=== PATIENT | female | born 1985 | race Caucasian/White ===

== ENCOUNTER 2023-05-28 13:47 | Outpatient (OUT) | payer OTHER, SELFPAY ==
--- NOTE | 2023-05-28 | US_ITS ---
The [address] [address] Patient Name: SANTOS JONES MRN: [id number] date: 1985 Sex: F Assigned Patient Location: US Current Patient Location: Accession/Order Number: [id number] Exam Date: 05/28/2023 14:00 Report Date: 05/29/2023 08:40 At the request of: YOUNG MOYA Procedure: US pelvis EXAM: US pelvis HISTORY: . Pelvic pain in female R10.2 . COMPARISON: None. TECHNIQUE: Transabdominal scanning was performed FINDINGS: The uterus is absent. Right ovary measures 3.7 x 3.3 x 2.8 cm. Color-flow is noted. Within the right ovary there is a 2.3 x 1.9 x 1.8 cm avascular hypoechoic complicated cystic structure. Left ovary measures 2.3 x 1.5 x 1.7 cm. Color-flow is noted. No masses are noted. The bladder is grossly unremarkable. No fluid is noted in the cul-de-sac. US/US pelvis IMPRESSION: 1. Absent uterus. 2. Normal left ovary. 3. 2.3 x 1.8 cm complicated avascular cystic structure in the right ovary. Findings could be due to a hemorrhagic cyst, an inflammatory mass, or less likely neoplasm. Clinical correlation is suggested. You may was consider follow-up in 6-8 weeks. If this is a hemorrhagic cyst, this should show decrease in size and/or resolution. Electronically authenticated by: DEZ DHALIWAL Date: 05/29/2023 08:40
== END 2023-05-28 13:48 | disposition home or self-care (01) ==
LOC: US 13:48
PROVIDERS: Visit Provider Obstetrics & Gynecology
DX: R10.2 Pelvic and perineal pain (principal); N83.9 Noninflammatory disorder of ovary, fallopian tube and broad ligament, unspecified
CPT/HCPCS: 76856

== ENCOUNTER 2023-07-07 19:43 | Outpatient (REF) | payer OTHER, SELFPAY ==
--- OUTSIDE RECORDS SUMMARY | 2023-07-07 19:46 | XMS_ITS | CCD ---
Author Name Unknown Address [facility] [address] [place] [address] Organization [facility] Care Team Providers Care Certified Low Vision Therapist Name Role Phone Adilene Chu Unavailable Unavailable Unknown, Referring Provider Unavailable Unav ailable [facility] Unava ilable NITA, DR VIDAL Attending Unavailable NITA, DR VIDAL Consulting Unavailable NITA, DR VIDAL Admitting Unavailable TROY II, PROMISE Consulting Unavailable FILUTZE, CLARA Consulting Unavailable [facility] Unava ilable AMBER, DR VAL Kruger Admitting Unavailable AMBER, DR VAL Kruger Attending Unavailable AMBER, DR VAL Kruger Consulting Unavailable [facility] Unava ilable NITA, DR VIDAL Attending Unavailable NITA, DR VIDAL Admitting Unavailable [facility] Unava ilable NITA, DR VIDAL Attending Unavailable NITA, DR VIDAL Consulting Unavailable NITA, DR VIDAL Admitting Unavailable [facility] Unava ilable NITA, DR VIDAL Attending Unavailable CORSICA, DR DEZ Beal Consulting Unavailable NITA, DR VIDAL Admitting Unavailable NITA, DR VIDAL Consulting Unavailable Rachele Ram Unavailable ALYSSA NAVAS Attending Unavailable YOUNG BORDEN Attending Unavailable ARMEN GARCIA Attending Unavailable GEO NOEL Referring Unavailable FRANCOISE DAWSON Primary Care Unavailable NON STAFF Primary Care Provider UnavailRASHEEDA Worrell Attending Provider Rachele Ram Attending Unavailable Rachele Ram Admitting Unavailable NON STAFF Primary Care Unavailable Unavailable Primary Care Provider Unavailabl e Allergies Allergy Classification Reported Allergen(s) Allergy Type Date of Onset Reaction(s) Facility (1 source) Sulfamethoxazole / Trimethoprim Drug Allergy 8 [facility] Repository (3 sources) Sulfamethoxazole / Trimethoprim Drug Allergy 0 [facility] (1 source) Sulfamethoxazole / Trimethoprim; Translations: [SULFAMETHOXAZOLE-TR IMETHOPRIM] Drug Allergy 0 [facility] Repository (3 sources) Sulfamethoxazole; Translations: [sulfamethoxazole] Drug Allergy [address] [facility] (3 sources) Trimethoprim; Translations: [trimethoprim] Drug Allergy [address] [facility] Medications Current Medications Medication Drug Class(es) Dates Sig (Normalized) Sig (Original) amoxicillin 875 mg / clavulanate 125 mg oral tablet (1 source) Penicillin-class Antibacterial Start: 05-12-2023 take 1 tablet by mouth every twelve hours Amoxicillin-Pot Clavulanate 875-125 MG 1 tablet Orally every 12 hrs for 10 May, Active ARIPiprazole (3 sources) Atypical Antipsychotic Start: 05-12-2023 Abilify May, Active ARIPiprazole (Ab ilify) 5 MG tablet 1 tablet Orally BED TIME for 90 days 0 Active busPIRone hydrochloride 10 mg oral tablet (3 sources) take 1 tablet by mouth in the morning busPIRone (Buspar) 10 MG tablet Take 10 mg by mouth in the morning and 10 mg in the evening. 0 Active cholecalciferol 0.025 mg oral tablet (1 source) Vitamin D Start: 020 take 2000 [IU] by mouth once daily Cholecalciferol (Vitamin D3) Active 2000 UNIT PO Daily September 06, 2019 11:00pm docusate sodium 100 mg oral capsule (1 source) docusate sodium (Colace) 100 MG capsule 1 (one) time each day at the same time 0 Active DULoxetine (4 sources) Serotonin and Norepinephrine Reuptake Inhibitor Start: 024 Cymbalta May, Active DULoxetine (Cymb cuba) [address] capsule 1 (one) time each day at the same time 0 Active ferrous sulfate 90 mg oral tablet (1 source) Ferrous Sulfate (iron) 90 (18 Fe) MG tablet 1 (one) time each day at the same time 0 Active hydrOXYzine pamoate 25 mg oral capsule (3 sources) Antihistamine hydrOXYzine pamo ate (Vistaril) 25 MG capsule 1 (one) time each day at the same time 0 Active lamoTRIgine (3 sources) Mood Stabilizer, Anti-epileptic Agent Start: 05-12-2023 lamoTRIgine May, Active take 1 tablet by quiana th once daily in the morning lamoTRIgine (LaMICtal) 25 MG tablet TAKE ONE TABLET BY MOUTH EVERY MORNING Orally morning for 90 days 0 Active lutein 6 mg oral capsule (1 source) Lutein (KP Lutei n) 6 MG capsule Oral 0 Active tobramycin 3 mg/ml ophthalmic solution (1 source) Aminoglycoside Antibacterial Start: 07-11-19 tobramycin (Tobrex) 0.3 % ophthalmic solution traZODone hydrochloride 50 mg oral tablet (1 source) Serotonin Reuptake Inhibitor Start: 09-07-19 take 25 mg by mouth once daily at bedtime Trazodone Active 25 MG PO Daily at bedtime September 06, 2019 11:00pm 24 hr venlafaxine 75 mg extended release oral capsule (1 source) Serotonin and Norepinephrine Reuptake Inhibitor Start: 09-07-19 take 75 mg by mouth once daily Venlafaxine Active 75 MG PO Daily September 06, 2019 11:00pm vilazodone hydrochloride 10 mg oral tablet (1 source) vilazodone (Viibryd) 10 mg tablet 1 (one) time each day at the same time 0 Active Completed/Discontinued Medications Medication Drug Class(es) Dates Sig (Normalized) Sig (Original) escitalopram 20 mg oral tablet (1 source) Serotonin Reuptake Inhibitor Start: 09-04-2019 End: 09-07-2019 take 20 mg by mouth once daily Escitalopram Oxalate Discontinued 20 MG PO Daily September 03, 2019 11:00pm September 07, 2019 10:15am PATIENT HAS NOT BEEN ABLE TO TAKE IT FOR THE PAST FEW WEEKS DUE TO NOT PHYSICALLY HAVING IT levoFLOXacin 500 mg oral tablet (1 source) Quinolone Antimicrobial Start: 07-22-2012 take 1 tablet by mouth once daily as needed Levaquin 500 MG 1 tablet Orally Once a day for 10 day(s) Jun, Not-Taking/PRN Levonorgestrel (1 source) Progestin, Progestin-containin g Intrauterine Device Mirena 20 MCG/24HR as directed Intrauterine Not-Taking/PRN sulfamethoxazole 800 mg / trimethoprim 160 mg oral tablet (3 sources) Dihydrofolate Reductase Inhibitor Antibacterial, Sulfonamide Antimicrobial Start: 04-06-2019 take 1 tablet by mouth twice daily Sulfamethoxazole- Trimethoprim 800-160 MG Oral Tablet TAKE 1 TABLET TWICE DAILY UNTIL FINISHED. Quantity: 14 Refills: 0 Adilene Chu PA-C Start : 06-Apr-2019 Active Problems Active Problems Problem Classification Problem Date Documented Date Episodic/Chronic Abdominal pain (1 source) Pelvic and perineal pain; Translations: [PELVIC AND PERINEAL PAIN] Onset: 05-28-2022 Episodic Anxiety disorders (1 source) Anxiety disorder, unspecified; Translations: [ANXIETY DISORDER UNSPECIFIED] Onset: 06-01-2022 Chronic Genitourinary symptoms and ill-defined conditions (3 sources) Scalding pain on urination ; Translations: [Burning with urination] Episodic Inflammatory diseases of female pelvic organs (1 source) Inflammatory disease of cervix uteri; Translations: [INFLAMMATORY DISEASE CERVIX UTERI] Onset: 06-01-2022 Episodic Menstrual disorders (5 sources) Excessive and frequent menstruation with regular cycle; Translations: [Dysmenorrhea, unspecified] Onset: 05-28-2022 Chronic Mood disorders (1 source) Recurrent major depression; Translations: [Major depressive disorder, recurrent, unspecified] 04-13-2023 Chronic Mood disorders (1 source) Mood disorders; Translations: [DEPRESSION UNSPECIFIED] Onset: 06-01-2022 Other aftercare (2 sources) Other senior living (current) drug therapy; Translations: [OTH NURSING HOME CURRENT DRUG THERAPY] Onset: 06-01-2022 Episodic Other connective tissue disease (1 source) Other symptoms and signs involving the musculoskeletal system Episodic Other injuries and conditions due to external causes (1 source) Injury, unspecified, initial encounter Episodic Other upper respiratory infections (1 source) Acute maxillary sinusitis, unspecified Episodic Otitis media and related conditions (2 sources) Otitis media; Translations: [Unspecified otitis media] Episodic Prolapse of female genital organs (5 sources) Uterovaginal prolapse, unspecified; Translations: [UTEROVAGINAL PROLAPSE UNSPECIFIED] Onset: 01-23-2022 Chronic Unclassified (1 source) PERSONAL HISTORY OF COVID-19; Translations: [PERSONAL HISTORY OF COVID-19] Onset: 06-01-2022 Unclassified (1 source) CONTACT W/AND (SUSP) EXPOS COVID-19; Translations: [CONTACT W/AND (SUSP) EXPOS COVID-19] Onset: 05-28-2022 Unclassified (1 source) Injury, unspecified, initial encounter; Translations: [Injury, unspecified, initial encounter] Onset: 06-03-2023 Urinary tract infections (8 sources) Urinary tract infectious disease; Translations: [Urinary Tract Infection] Episodic Past or Other Problems Problem Classification Problem Date Documented Da te Episodic/Chronic Unclassified (3 sources) History finding; Translations: [No pertinent past medical history] Results Test Name Value Interpretation Reference Range Facility XR hand RT min 3V*on 024 XR hand RT min 3V* [facility] Main [place] [address] [place] [address] XRay Report Signed Patient: Santos Howe MR#: [id number] : 1985 Acct:[id number] Age/Sex: 38 / F ADM Date: 06/03/23 Loc: XDUCLY Room: Type: [facility] Attending Dr: Rachele Ram APRN Copies to: Rachele Ram APRN Ordering Provider: Rachele Ram APRN Date of Service: 06/03/23 XR/XR hand RT min 3V*: Injury 4 views right hand plain film COMPARISON: None HISTORY: Fell 3 days ago. Bruising and swelling over the first through third metacarpals. History of right hand fracture. ACUTE FINDINGS: Cortical irregularity involving the dorsal distal aspect of the distal carpal bones identified. Correlate with site of pain. This may correlate with the old fracture. DEGENERATIVE CHANGE: Unremarkable SOFT TISSUE FINDINGS: Unremarkable JOINT EFFUSION: None POSTOP CHANGES: None BONY MINERALIZATION: Adequate XR/XR hand RT min 3V* IMPRESSION: Indeterminate age fracture of the distal dorsal aspect of the distal carpal bones. Impression dictated by: Mark Clarke M.D.06/03/2023 2:57 PM Dictation Location: [place] [address] Transcribed By: [facility] 06/03/23 3111 Dictated By: Mark Clarke DO 06/03/23 2434 Signed By: 06/03/23 3811 Normal [facility] XR hand RT min 3V* [facility] [employer] Other XR hand RT min 3V* [facility] Main [place] [employer] Other XR hand RT min 3V* 1111 [facility] [employer] Other XR hand RT min 3V* KEENAN Mota [address] [employer] Other XR hand RT min 3V* XRay Report [employer] Other XR hand RT min 3V* Signed [employer] Other XR hand RT min 3V* Patient: Santos Howe MR#: [id number] [employer] Other XR hand RT min 3V* [address] [employer] Other XR hand RT min 3V* : 1985 Acct:[id number] [employer] Other XR hand RT min 3V* Age/Sex: 38 / F ADM Date: 06/03/23 [employer] Other XR hand RT min 3V* Loc: XDUCLY Room: Type: REG CLI [employer] Other XR hand RT min 3V* Attending Dr: Rachele Ram [facility] [employer] Other XR hand RT min 3V* Copies to: Rachele Ram APRN [employer] Other XR hand RT min 3V* Ordering Provider: Rachele Ram [employer] PRESIDENT [employer]ES [employer] Other XR hand RT min 3V* Date of Service: 06/03/23 [employer] Other XR hand RT min 3V* XR/XR hand RT min 3V*: Injury [employer] Other XR hand RT min 3V* 4 views right hand plain film [employer] Other XR hand RT min 3V* COMPARISON: None [employer] Other XR hand RT min 3V* HISTORY: Fell 3 days ago. Bruising and swelling over the first through third metacarpals. History [employer] Other XR hand RT min 3V* of right hand fracture. [employer] Other XR hand RT min 3V* ACUTE FINDINGS: Cortical irregularity involving the dorsal distal aspect of the distal carpal bones [employer] Other XR hand RT min 3V* identified. Correlate with site of pain. This may correlate with the old fracture. [employer] Other XR hand RT min 3V* DEGENERATIVE CHANGE: Unremarkable [employer] Other XR hand RT min 3V* SOFT TISSUE FINDINGS: Unremarkable [employer] Other XR hand RT min 3V* JOINT EFFUSION: None [employer] Other XR hand RT min 3V* POSTOP CHANGES: None [employer] Other XR hand RT min 3V* BONY MINERALIZATION: Adequate [employer] Other XR hand RT min 3V* XR/XR hand RT min 3V* [employer] Other XR hand RT min 3V* IMPRESSION: Indeterminate age fracture of the distal dorsal aspect of the distal carpal bones. [employer] Other XR hand RT min 3V* Impression dictated by: Mark Clarke M.D.06/03/2023 2:57 PM [employer] Other XR hand RT min 3V* Dictation Location: [place] [address] [employer] Other XR hand RT min 3V* Transcribed By: AMINA 06/03/23 1457 [employer] Other XR hand RT min 3V* Dictated By: VicneMark Bhupendra SERVIN 06/03/[address] [facility] [employer] Other XR hand RT min 3V* Signed By: [facility] [employer] Other XR hand RT min 3V* 06/03/23 1457 [facility] [employer] Other HGB A1C (GLYCO-HGB)on 2023 Glucose [Mass/Vol] 108 mg/dL Normal [facility] Comment on above: Performed By: #### 2 4331-1 #### [facility] ([id number]) [address], [address] [place] [address] HbA1c (Bld) [Mass fraction] 5.4 % Normal 4.4-5.6 [facility] Comment on above: Result Comment: NOTE ADA Guidelines Result HgbA1c Normal : less than 5.7 % Prediabetes : 5.7 % to 6.4 % Diabetes : > 6.4 % Use with caution in patients with abnormal hemoglobin variants as the half-life of red blood cells and in vivo glycation rates are affected. Performed By: #### 2 4331-1 #### [facility] ([id number]) [address], [address] [place] [address] Lipid 1996 panelon Cholesterol [Mass/Vol] 184 mg/dL Normal 150-200 [facility] Comment on above: Performed By: #### 2 4331-1 #### [facility] ([id number]) [address], [address] [place] [address] Cholesterol in HDL [Mass/Vol] 66 mg/dL Normal >39 [facility] Comment on above: Result Comment: HDL <40 mg/dL - High Risk HDL > or = 40mg/dL- Desirable HDL >60 mg/dL - Negative Risk Performed By: #### 2 4331-1 #### [facility] ([id number]) [address], [address] [place] [address] Cholesterol in LDL [Mass/Vol] 96 mg/dL Normal <130 [facility] Comment on above: Result Comment: LDL <100 mg/dL - Desirable LDL >160 mg/dL - High Risk Performed By: #### 2 4331-1 #### [facility] ([id number]) [address], [address] [place] [address] Cholesterol in VLDL [Mass/Vol] 22 mg/dL Normal 0-30 [facility] Comment on above: Performed By: #### 2 4331-1 #### [facility] ([id number]) [address], [address] [place] [address] CHOLESTEROL:HDL 2.8 Normal 1.0-5.0 [facility] Comment on above: Performed By: #### 2 4331-1 #### [facility] ([id number]) [address], [address] [place] [address] Triglyceride [Mass/Vol] 111 mg/dL Normal 27-150 [facility] Comment on above: Performed By: #### 2 4331-1 #### [facility] ([id number]) [address], [address] [place] [address] BUNon 05-28-2022 Urea nitrogen [Mass/Vol] 15.0 mg/dL Normal 7.0-18.0 [facility] Comment on above: Performed By: #### ELSI COSTELLO #### [facility] [address] [place] [address] Dr. Lucero Higuera CBC AUTO DIFFon 05-28-2022 BASO # 0.0 103/ul Normal 0.0-0.1 [facility] Comment on above: Performed By: #### C BC #### [facility] [address] [place] [address] [address] Lucero Higuera Basophils/100 WBC (Bld) 0.2 % Normal 0.2-2.0 [facility] Comment on above: Performed By: #### C BC #### [facility] [address] [place] [address] [address] Lucero Higuera EO # 0.0 103/ul Normal 0.0-0.7 [facility] Comment on above: Performed By: #### C BC #### [facility] [address] [place] [address] Dr. Lucero Higuera Eosinophils/100 WBC (Bld) 0.0 % Critically low 0.9-7.0 [facility] Comment on above: Performed By: #### C BC #### [facility] [address] [place] [address] Dr. Lucero Higuera Erythrocyte distribution width (RBC) [Ratio] 13.4 % Normal 11.0-15.0 [facility] Comment on above: Performed By: #### C BC #### [facility] [address] [place] [address] Dr. Lucero Higuera Hematocrit (Bld) [Volume fraction] 32.1 % Critically low 36.0-48.0 [facility] Comment on above: Performed By: #### C BC #### [facility] [address] [place] [address] Dr. Lucero Higuera Hemoglobin (Bld) [Mass/Vol] 11.9 g/dL Critically low 12.0-16.0 [facility] Comment on above: Performed By: #### C BC #### [facility] [address] [place] [address] Dr. Lucero Higuera IG # 0.04 10e3/ul Critically high 0.00-0.03 [facility] Comment on above: Performed By: #### C BC #### [facility] [address] [place] [address] Dr. Lucero Higuera IG % 0.3 % Normal 0.0-0.5 [facility] Comment on above: Performed By: #### C BC #### [facility] [address] [place] [address] Dr. Lucero Higuera LYMPH # 0.8 103/ul Critically low 1.2-3.8 [facility] Comment on above: Performed By: #### C BC #### [facility] [address] [place] [address] Dr. Lucero Higuera Lymphocytes/100 WBC (Bld) 6.1 % Critically low 20.5-60.0 [facility] Comment on above: Performed By: #### C BC #### [facility] [address] [place] [address] Dr. Lucero Higuera MANUAL DIFF REQ NO Normal [facility] Comment on above: Performed By: #### C BC #### [facility] [address] [place] [address] Dr. Lucero Higuera MCH (RBC) [Entitic mass] 30.4 pg Normal 26.7-34.0 [facility] Comment on above: Performed By: #### C BC #### [facility] [address] [place] [address] Dr. Lucero Higuera MCHC (RBC) [Mass/Vol] 37.1 g/dL Critically high 29.9-35.2 [facility] Comment on above: Performed By: #### C BC #### [facility] [address] [place] [address] Dr. Lucero Higuera MCV (RBC) [Entitic vol] 82.1 fL Normal 81.0-99.0 [facility] Comment on above: Performed By: #### C BC #### [facility] [address] [place] [address] Dr. Lucero Higuera MONO # 0.2 103/ul Critically low 0.3-0.8 [facility] Comment on above: Performed By: #### C BC #### [facility] [address] [place] [address] Dr. Lucero Higuera Monocytes/100 WBC (Bld) 1.8 % Normal 1.7-12.0 [facility] Comment on above: Performed By: #### C BC #### [facility] [address] [place] [address] Dr. Lucero Higuera NEUT # 12.1 103/ul Critically high 1.4-6.5 [facility] Comment on above: Performed By: #### C BC #### [facility] [address] [place] [address] Dr. Lucero Higuera Neutrophils/100 WBC (Bld) 91.6 % Critically high 43.0-75.0 [facility] Comment on above: Performed By: #### C BC #### [facility] [address] [place] [address] Dr. Lucero Higuera Platelet mean volume (Bld) [Entitic vol] 9.0 fL Critically low 9.5-13.5 [facility] Comment on above: Performed By: #### C BC #### [facility] [address] [place] [address] Dr. Lucero Higuera PLT 308 103/ul Normal 150-450 [facility] Comment on above: Performed By: #### C BC #### [facility] [address] [place] [address] Dr. Lucero Higuera RBC 3.91 106/ul Critically low 4.20-5.[address] [facility] Comment on above: Performed By: #### C BC #### [facility] [address] [place] [address] Dr. Lucero Higuera WBC 13.2 103/ul Critically high 4.0-11.0 [facility] Comment on above: Performed By: #### C BC #### [facility] [address] [place] [address] Dr. Lucero Higuera BASO # 0.1 103/ul Normal 0.0-0.1 [facility] Comment on above: Performed By: #### C BC #### [facility] [address] [place] [address] Dr. Lucero Higuera Basophils/100 WBC (Bld) 0.5 % Normal 0.2-2.0 [facility] Comment on above: Performed By: #### C BC #### [facility] [address] [place] [address] Dr. Lucero Higuera EO # 0.4 103/ul Normal 0.0-0.7 [facility] Comment on above: Performed By: #### C BC #### [facility] [address] [place] [address] Dr. Lucero Higuera Eosinophils/100 WBC (Bld) 3.8 % Normal 0.9-7.0 [facility] Comment on above: Performed By: #### C BC #### [facility] [address] [place] [address] Dr. Lucero Higuera Erythrocyte distribution width (RBC) [Ratio] 14.3 % Normal 11.0-15.0 [facility] Comment on above: Performed By: #### C BC #### [facility] [address] [place] [address] Dr. Lucero Higuera Hematocrit (Bld) [Volume fraction] 43.1 % Normal 36.0-48.0 [facility] Comment on above: Performed By: #### C BC #### [facility] [address] [place] [address] Dr. Lucero Higuera Hemoglobin (Bld) [Mass/Vol] 13.0 g/dL Normal 12.0-16.0 [facility] Comment on above: Performed By: #### C BC #### [facility] [address] [place] [address] Dr. Lucero Higuera IG # 0.04 10e3/ul Critically high 0.00-0.03 [facility] Comment on above: Performed By: #### C BC #### [facility] [address] [place] [address] Dr. Lucero Higuera IG % 0.3 % Normal 0.0-0.5 [facility] Comment on above: Performed By: #### C BC #### [facility] [address] [place] [address] Dr. Lucero Higuera LYMPH # 4.2 103/ul Critically high 1.2-3.8 [facility] Comment on above: Performed By: #### C BC #### [facility] [address] [place] [address] Dr. Lucero Higuera Lymphocytes/100 WBC (Bld) 36.3 % Normal 20.5-60.0 [facility] Comment on above: Performed By: #### C BC #### [facility] [address] [place] [address] Dr. Lucero Higuera MANUAL DIFF REQ NO Normal [facility] Comment on above: Performed By: #### C BC #### [facility] [address] [place] [address] Dr. Lucero Higuera MCH (RBC) [Entitic mass] 29.3 pg Normal 26.7-34.0 [facility] Comment on above: Performed By: #### C BC #### [facility] [address] [place] [address] Dr. Lucero Higuera MCHC (RBC) [Mass/Vol] 30.2 g/dL Normal 29.9-35.2 [facility] Comment on above: Performed By: #### C BC #### [facility] [address] [place] [address] Dr. Lucero Higuera MCV (RBC) [Entitic vol] 97.3 fL Normal 81.0-99.0 [facility] Comment on above: Performed By: #### C BC #### [facility] [address] [place] [address] Dr. Lucero Higuera MONO # 0.7 103/ul Normal 0.3-0.8 [facility] Comment on above: Performed By: #### C BC #### [facility] [address] [place] [address] Dr. Lucero Higuera Monocytes/100 WBC (Bld) 6.0 % Normal 1.7-12.0 [facility] Comment on above: Performed By: #### C BC #### [facility] [address] [place] [address] Dr. Lucero Higuera NEUT # 6.1 103/ul Normal 1.4-6.5 [facility] Comment on above: Performed By: #### C BC #### [facility] [address] [place] [address] Dr. Lucero Higuera Neutrophils/100 WBC (Bld) 53.1 % Normal 43.0-75.0 [facility] Comment on above: Performed By: #### C BC #### [facility] [address] [place] [address] Dr. Lucero Higuera Platelet mean volume (Bld) [Entitic vol] 9.3 fL Critically low 9.5-13.5 [facility] Comment on above: Performed By: #### C BC #### [facility] [address] [place] [address] Dr. Lucero Higuera PLT 369 103/ul Normal 150-450 [facility] Comment on above: Performed By: #### C BC #### [facility] [address] [place] [address] Dr. Lucero Higuera RBC 4.43 106/ul Normal 4.20-5.40 [facility] Comment on above: Performed By: #### C BC #### [facility] [address] [place] [address] Dr. Lucero Higuera WBC 11.4 103/ul Critically high 4.0-11.0 [facility] Comment on above: Performed By: #### C BC #### [facility] [address] [place] [address] Dr. Lucero Higuera CREATININEon 05-28-2022 Creatinine [Mass/Vol] 0.76 mg/dL Normal 0.55-1.02 [facility] Comment on above: Performed By: #### B UN, CREA #### [facility] [address] [place] [address] Dr. Lucero Higuera EGFR-AF MARTINIQUAIS >60 Normal >=60 [facility] Comment on above: Performed By: #### B UN, CREA #### [facility] [address] [place] [address] Dr. Lucero Higuera EGFR-NON AF MARTINIQUAIS >60 Normal >=60 [facility] Comment on above: Performed By: #### B UN, CREA #### [facility] [address] [place] [address] Dr. Lucero Higuera Covid-19 PCR (CVDTB)on 05-03 SARS-CoV-2 (COVID-19) RNA GISELL+probe Ql (Unsp spec) Not detected Normal NOT DETECTED [facility] Comment on above: Result Comment: This test is not yet approved or cleared by the [place] FDA. When there are no FDA-approved or cleared tests available, and other criteria are met, FDA can make tests available under an emergency access mechanism called an Emergency Use Authorization (EUA). The EUA for this test is supported by the [place] of Health and Human Service's (HHS's) declaration that circumstances exist to justify the emergency use of in vitro diagnostics for the detection and/or diagnosis of the virus that causes COVID-19. This EUA will remain in effect (meaning this test can be used) for the duration of the COVID-19 declaration justifying emergency of IVDs, unless it is terminated or revoked by FDA (after which the test may no longer be used). When diagnostic testing is negative, the possibility of a false negative should be considered in the context of a patient's recent exposures and the presence of clinical signs and symptoms consistent with SARS-CoV-2. Performed By: #### C VDTBH #### [facility] [address] [place] [address] Dr. Lucero Higuera PREG QUANT HCGon 05-26-2022 HCG QUANT <1 Normal [facility] Comment on above: Performed By: #### P REGQNT #### [facility] [address] [place] [address] Dr. Lucero Higuera HCG RANGE SEE BELOW Normal [facility] Comment on above: Result Comment: 5-50 0.2-1 WEEK 50-500 1-2 WEEKS 100-5,000 2-3 WEEKS 500-10,000 3-4 WEEKS 1,000-50,000 4-5 WEEKS 10,000-100,000 5-6 WEEKS 15,000-200,000 6-8 WEEKS 10,000-100,000 2-3 MONTHS Performed By: #### P REGQNT #### [facility] [address] [place] [address] Dr. Lucero Higuera TYPE AND SCREENon 05-26-2022 TYPE AND SCREEN Negative Normal [facility] Comment on above: Performed By: #### T NS #### [facility] [address] [address] [address] Lucero Higuera US PELVIS AND TRANSVAGon US PELVIS AND TRANSVAG EXAMINATION: US PELVIS AND TRANSVAG HISTORY: Uterovaginal prolapse COMPARISON: 06/25/2020 FINDINGS: The uterus is normal in size, contour and echotexture, anteverted, anteflexed. The uterus measures 9 x 5.0 x 5.6 cm. No focal myometrial mass. The endometrium measures 10 mm, normal. The right ovary is normal in size, contour and echotexture measuring 3.1 x 2.0 x 1 6. Normal color and Doppler flow. The left ovary is normal in size, contour and echotexture measuring 2.9 x 2.1 x 2.5 cm. Normal color and Doppler flow IMPRESSION: No acute abnormality Electronically authenticated by: DEZ RUANO Date: 2022-01-23 19:25 Normal [facility] Cult, Urineon 04-06-2019 Bacteria identified Cx Nom (U) PATIENT: SANTOS HOWE LOCATION: [facility] BILL#: [id number] : 81 AGE: SEX: F ORDERED BY: PATRIZIA CHU: URINE COLLECTED: 04/06/19 19:49ANTIBIOTICS AT MEGHAN.: RECEIVED : 04/07/19 00:18SITE: Clean Catch/Voided R E S U L T S URINE CULTURE,BACTERIAL FINAL 04/09/19 09:12 ISOLATE1 : Escherichia coli >100,000 CFU/ML ____Organism E coli Antibiotic BP INTRP ____Ampicillin S Cefazolin S Ciprofloxacin S Nitrofurantoin S Gentamicin S Levofloxacin S Piperc/Tazobact S Trimeth/Sulfa S Tetracycline S S= SUSCEPTIBLE I=INTERMEDIATE R=RESISTANT SDD=SUSCEPTIBLE DOSE DEPENDENT NS=NONSUSCEPTIBLEX=R EPORTED IN ERROR ___ Abnormal [facility] Work Phone: Bacteria identified Cx Nom (U) PATIENT: SANTOS HOWE LOCATION: [facility] BILL#: [id number] : 81 AGE: SEX: F ORDERED BY: PATRIZIA CHU: URINE COLLECTED: 04/06/19 19:49ANTIBIOTICS AT MEGHAN.: RECEIVED : 04/07/19 00:18SITE: Clean Catch/Voided R E S U L T S URINE CULTURE,BACTERIAL PRELIM 04/08/19 09:01 ISOLATE1 : Enteric bacilli >100,000 CFU/ML IDENTIFICATION AND/OR ANTIBIOTIC SUSCEPTIBILITY IN PROGRESS. Abnormal [facility] Work Phone: IO UA (automated w/o microsc opy)on 04-06-2019 Protein (U) [Mass/Vol] Negative Negative [facility] Work Phone: IO UA (automated w/o microscopy) Negative Negative [facility] Work Phone: IO UA (automated w/o microscopy) 1.010 1.000-1.030 [facility] Work Phone: IO UA (automated w/o microscopy) Yellow Colorless-[place] ow [facility] Work Phone: IO UA (automated w/o microscopy) 6.0 5.0-8.0 [facility] Work Phone: IO UA (automated w/o microscopy) Trace Negative [facility] Work Phone: IO UA (automated w/o microscopy) Normal (0.2-1.0 mg/dl) Normal [facility] Work Phone: IO UA (automated w/o microscopy) Positive Negative [facility] Work Phone: IO UA (automated w/o microscopy) (+)small - 15 Negative [facility] Work Phone: IO UA (automated w/o microscopy) Cloudy Clear [facility] Work Phone: URINE CULTURE,BACTERIALon URINE CULTURE,BACTERIAL PATIENT: SANTOS HOWE LOCATION: [facility] BILL#: [id number] : 81 AGE: SEX: F ORDERED BY: ADILENE CHU SOURCE: URINE COLLECTED: 04/06/19 19:49 ANTIBIOTICS AT MEGHAN.: RECEIVED : 04/07/19 00:18 SITE: Clean Catch/Voided R E S U L T S URINE CULTURE,BACTERIAL FINAL 04/09/19 09:12 ISOLATE1 : Escherichia coli >100,000 CFU/ML ____ Organism E coli Antibiotic BP INTRP ____ Ampicillin S Cefazolin S Ciprofloxacin S Nitrofurantoin S Gentamicin S Levofloxacin S Piperc/Tazobact S Trimeth/Sulfa S Tetracycline S S=SUSCEPTIBLE I=INTERMEDIATE R=RESISTANT SDD=SUSCEPTIBLE DOSE DEPENDENT NS=NONSUSCEPTIBLE X=REPORTED IN ERROR [facility] Comment on above: Performed By: #### U RINC #### [facility] [address] [place] [address] Vital Signs Date Time Vital Sign Value Performing Clinician Facility 06-03-2023 14:00-0500 Body height 165.1 cm Rachele Ram Other [facility] Other 06-03-2023 14:00-0500 Body mass index (BMI) [Ratio] 28.72 kg/m2 Rachele Ram Other [facility] Other 06-03-2023 14:00-0500 Body temperature 98 [degF] Rachele Ram Other [facility] Other 06-03-2023 14:00-0500 Body weight 78.29 kg Rachele Ram Other [facility] Other 06-03-2023 14:00-0500 Respiratory rate 18 /min Rachele Ram Other [facility] Other 06-03-2023 14:00-0500 SaO2% (BldA) [Mass fraction] 96 % Rachele Ram Other [facility] Other 05-12-2023 17:40-0500 Body height 165.1 cm Rachele Ram Other [facility] Other 05-12-2023 17:40-0500 Body mass index (BMI) [Ratio] 28.29 kg/m2 Rachele Ram Other [facility] Other 05-12-2023 17:40-0500 Body temperature 98 [degF] Rachele Ram Other [facility] Other 05-12-2023 17:40-0500 Body weight 77.11 kg Rachele Ram Other [facility] Other 05-12-2023 17:40-0500 Respiratory rate 18 /min Rachele Ram Other [facility] Other 05-12-2023 17:40-0500 SaO2% (BldA) [Mass fraction] 97 % Rachele Ram Other [facility] Other 04-06-2019 20:42-0500 BMI (Body Mass Index) 28.06 kg/m2 Adilene Chu [facility] Work Phone: 04-06-2019 20:42-0500 Body Temperature 98.3 [degF] Adilene Chu [facility] Work Phone: 04-06-2019 20:42-0500 Body weight 76.48 kg Adilene Chu [facility] Work Phone: 04-06-2019 20:42-0500 BP Diastolic 64 mm[Hg] Adilene Chu [facility] Work Phone: 04-06-2019 20:42-0500 BP Systolic 110 mm[Hg] Adilene Chu [facility] Work Phone: 04-06-2019 20:42-0500 BSA (Body Surface Area) 1.84 m2 Adilene Chu [facility] Work Phone: 04-06-2019 20:42-0500 Height 165.1 cm Adilene Chu [facility] Work Phone: 04-06-2019 20:42-0500 Pulse (Heart Rate) 73 /min Adilene Chu [facility] Work Phone: 04-06-2019 20:42-0500 Pulse Oximetry 97 % Adilene Chu [facility] Work Phone: 04-06-2019 20:42-0500 4 1 Adilene Chu [facility] Work Phone: Comment on above: Pain Scale Encounters Encounter Date Encounter Type Care Provider Facility Start: 06-13-2023 Chart abstracting Young Borden DO Work Phone: [facility] Start: 06-03-2023 End: 06-03-2023 ambulatory Rachele Ram Facility:[facility] Start: 06-03-2023 End: 06-03-2023 Patient encounter procedure [facility] Work Phone: Start: 06-03-2023 End: 06-03-2023 ambulatory NON STAFF [facility] Work Phone: Start: 06-03-2023 Office outpatient vi sit 15 minutes Rachele Ram [facility] Start: 05-30-2023 End: 05-30-2023 ambulatory ARMEN GARCIA Not Available Start: 05-30-2023 End: 05-31-2023 ambulatory [facility] Start: 05-26-2023 End: 05-26-2023 ambulatory YOUNG BORDEN Not Available Start: 05-24-2023 End: 05-25-2023 ambulatory ALYSSA NAVAS Not Available Start: 05-12-2023 End: 05-12-2023 ambulatory Rachele Ram Other [place] [facility] Other Start: 05-12-2023 Office outpatient ne w 30 minutes Rachele Ram [facility] Start: 05-12-2023 End: 05-12-2023 Patient encounter procedure [facility] Work Phone: Start: 05-28-2022 Encounter for preprocedural laboratory examination DR YOUNG BORDEN [facility] Start: 05-28-2022 End: 05-28-2022 [facility] Facility:[facility] Start: 05-26-2022 End: 05-27-2022 [facility] Facility:[facility] Start: 05-26-2022 End: 05-27-2022 Encounter for preprocedural laboratory examination [facility] Facility: Start: 05-24-2022 Encounter for other preprocedural examination DR YOUNG BORDEN [facility] Start: 05-18-2022 End: 05-19-2022 [facility] Facility:[facility] Start: 05-18-2022 End: 05-19-2022 Encounter for other preprocedural examination [facility] Facility:H1 Start: 01-23-2022 End: 01-23-2022 [facility] Facility:[facility] Start: 01-17-2022 End: 01-17-2022 [facility] Facility: Procedures Date Procedure Procedure Detail Performing Clinician Start: 06-03-2023 Plain X-ray of right hand Start: 06-25-2019 Microscopic observat ion [Identifier] in Cervix by Cyto stain Young Borden DO Work Phone: Start: 04-06-2019 Follow-up visit Plan of Treatment Date Care Activity Detail Author Start: 06-25-2024 Screening for malign ant neoplasm of cervix [facility] Start: 07-07-2023 End: 07-07-2023 Patient encounter procedure 07/07/2023 10:00 AM EST Office Visit [facility] [address] [place] [address] Young Borden, DO [address] [place] [address] Dr [place] [id number] [facility] Start: 2023 Screening for malign ant neoplasm of breast Mammogram [facility] Start: 12-31-2022 Influenza vaccination Influenza Vacc ine (#1) [facility] Payers Date Payer Category Payer Self-pay [id number] 2022 Unknown [id number] 2022 Unknown [facility] [id number] 2022-Present [phone] [address] [place] [address] [id number] 1983 Unknown [id number] 3 1983 Unknown [id number] 3 1983 Unknown [id number] 3 1983 Unknown [id number] 3 1983 Unknown [id number] 3 1983 Unknown [id number] 59 1983 Unknown [id number] 59 1983 Unknown [id number] [id number] 59 1983 Unknown [id number] 86 1961 Self-pay [id number] Unknown [employer] BC/BS [id number] Unknown [id number] 1 Social History Date Type Detail Facility Sex Assigned At [employer] Other Start: 09-05-2019 Tobacco smoking status VAIS Current some day smoker [facility] Start: 1985 Sex Assigned At Female [facility] Start: 06-13-2023 Tobacco smoking status [facility] Never smoked tobacco [facility] Start: 06-13-2023 Alcohol intake Current drinke r of alcohol (finding) [facility] Start: 06-13-2023 Alcohol Comment caffeine: 1-2 cups per day [facility] Start: 1985 Sex Assigned At Not on file [facility] NEGATED: Highlighted row - - [facility] Work Phone: Functional Status Date Assessment Result Facility NEGATED: Highlighted row Functional performance Functional status health issues are not documented Disease [facility] Work Phone: Mental Status Date Assessment Result Facility NEGATED: Highlighted row Cognitive function [Interpretation] Cognitive status health issues are not documented Disease [facility] Work Phone: Evaluation note 06-03-2023 Note Date & Type Note Facility 06-03-2023 Evaluation note Encounter Date Diagnosis Assessment Notes Jun, Injury (ICD-10 - T14.90XA) Jun, Suspected fracture of bone (ICD-10 - R29.898) XR imaging and final report reviewed -there is a suspected fracture present which is greatest seen on lateral view. Final report states that this could be acute or old fracture, however, patient is experincing pain at site presently. Area splinted today in office. Will refer to Ortho. Encouraged RICE therapy discussed- rest extremity, avoid excessive or strenuous activity, complete activity as tolerated; ice area for 15-20 minutes at a time multiple times a day, ensure thin cloth barrier between skin and ice; Splint/ALVAREZ wrap area; keep extremity elevated. Advised patient to use OTC NSAIDs/Tylenol as directed as needed for discomfort. Instructed patient to follow up with ortho in 2-3 days. Immediate eval by ER for warning s/sx as discussed. Patient verbalizes understanding and is agreeable to treatment plan. Jun, Other Hand fracture home care material was printed [employer] Other Evaluation note 05-12-2023 Note Date & Type Note Facility 05-12-2023 Evaluation note Encounter Date Diagnosis Assessment Notes May, Acute non-recurrent maxillary sinusitis (ICD-10 - J01.00) Patient declines/refus es COVID/influenz a testing today in office. Discussed diagnosis with patient. Will today for bacterial sinusitis based on physical exam and duration of symptoms. Take antibiotic as prescribed, complete entire course of therapy even if symptoms resolve. Reviewed allergies and recent antibiotic use with patient. Advised patient to OTC Mucinex, OTC Flonase. Supportive care as directed, push fluids and rest, Tylenol and/or Motrin as directed for discomfort/fev er, warm moist compress over sinuses several times a day, cool mist humidification , nasal saline spray as directed. Symptoms should improve in the next 3 days, if symptoms persist follow up with PCP. Immediate eval for warning s/sx as discussed. Patient verbalizes understanding and is agreeable to treatment plan [facility] Other History general Narrative - Reported 2023 Note Date & Type Note Facility 2023 History general N arrative - Reported Type Medical History chronic depression Surgical History nasal reconstruction Surgical History cholecystectomy 04/2023 Surgical History hysterectomy 05/2022 Hospitalization History See Above [facility] Other History general Narrative - Reported 2023 Note Date & Type Note Facility 2023 History general N arrative - Reported Type Medical History chronic depression Surgical History nasal reconstruction Surgical History cholecystectomy 04/2023 Surgical History hysterectomy 05/2022 Hospitalization History 3 child births [employer] Other Clinical Note 05-28-2022 Note Date & Type Note Facility 05-28-2022 Note OPERATIVE NOTE OPERATION DATE: 05/28/2022 PROCEDURE: vNOTES assisted laparoscopic hysterectomy with bilateral salpingectomy with cystoscopy. PREOPERATIVE DIAGNOSIS: Menorrhagia, dysmenorrhea. POSTOPERATIVE DIAGNOSIS: Menorrhagia, dysmenorrhea. ANESTHESIA: General. SURGEON: Young Borden D.O. GUEST SPECIALIST: PATO Astorga URINE OUTPUT: Yellow and clear. BLOOD LOSS: 100 mL. SPECIMEN: Uterus and tubes. FINDINGS: Normal appearing ovaries. Normal appearing uterus. Slightly enlarged uterus. PROCEDURE: Patient was brought back to the operating room where she was given general anesthesia. She was placed in the dorsal lithotomy position, after being prepped and draped in a sterile fashion. A Hubbard catheter was placed. A weight speculum was placed posterior in the vagina. The cervix was grasped anteriorly and posteriorly with two single tooth tenaculums and placed on traction. A solution of Marcaine, lidocaine and epinephrine and saline was liberally infiltrated into the cervicovaginal junction. The knife was then used to circumscribe the cervicovaginal junction and the posterior cul-de-sac was sharply entered without difficulty. The long weighted duck tail speculum was then placed and the peritoneum was tacked to the vaginal epithelium. We then turned our attention to the uterosacral ligaments which were bilaterally cross clamped, transected and suture ligated, and they were held with hemostats. Attention was then turned to the anterior compartment, where the cervicovaginal junction was similarly divided and the bladder was then sharply and bluntly dissected off the cervix and lower uterine segment, and the anterior cul-de-sac was sharply entered. The epithelium was tacked to the peritoneum. Lateral attachments of the uterus were secured with Valencia clamps and suture ligated. The retractors were then removed and were placed by the path inner ring anteriorly followed by posteriorly. Once the ring was seated, the cap was placed and the laparoscopic ports were placed through this cap and the gas was allowed to insufflate the pelvis. A GynLap was placed posteriorly to facilitate mobilization of the bowel and control bleeding. This was later retrieved. The LigaSure device was used to secure the lateral attachments of the uterus on the left side, including the cardinal ligaments and the uterine vasculature, once the utero-ovarian ligament was reached. We turned attention to the right side, where the LigaSure device was used to fully detach the uterus from the pelvic side wall. The ureters were seen visually; before, during and after the pedicles were created. The ureters were bilaterally in normal locations, peristalsing. On the right side, the fallopian tube was easily divided away from the ovary and removed from the field. The left sided ovary was normal and the tube was left attached to the uterus, and the fimbriated end detached from the ovary. The uterus, both fallopian tubes were removed from the field. The GynLap was also removed from the field. The inner ring and gel ports cap were removed and the vaginal retractors were replaced. Lateral figure of eight sutures were placed bilaterally where bleeding occurred behind the ring and no further sutures were needed. The colpopexy was then carried out, passing a stitch posterior to the vaginal wall, capturing the left uterosacral ligament, going across the posterior peritoneum to the right uterosacral ligament and exiting out the vaginal wall posteriorly. The vaginal cuff was then closed in a single running/locking stitch, using O Monocryl and the uterosacral ligaments were cut. Once the vaginal cuff was fully closed, the uterosacral colpopexy stitch was then tied down tightly, elevating the vaginal cuff to the uterosacral ligaments in a satisfactory manner. The Hubbard catheter was removed and the patient was awakened and taken recovery in excellent condition. Sponge, lap, needle counts correct x2. [facility] Evaluation note Note Date & Type Note Facility Evaluation note No assessment information [facility] Work Phone: Summary Purpose Family History Mother Name Dates Details No pertinent family history( V49.89, Z78.9) Status:Active Father Name Dates Details No pertinent family history( V49.89, Z78.9) Status:Active Mother Name Dates Details No pertinent family history( V49.89, Z78.9) Status:Active Father Name Dates Details No pertinent family history( V49.89, Z78.9) Status:Active Relationship Condition Age at Onset Recorded Date/T roxi Not Specified Depression Unknown Lymphoma Unknown grandparent Depression Unknown Advance Directives Advance Directive Response Recorded Date/ Time Advance Directives No September 04, 2019 2:03pm Chief Complaint and Reason for Visit Chief Complaint Left Eye Discomfort, Sinus Congestion, H Additional Source Comments INFORMATION SOURCE (unrecogn ized section and content) DATE CREATED AUTHOR 04/07/2019 [employer] DATE CREATED AUTHOR AUTHOR'S ORGANIZ ATION 04/09/2019 [facility] DATE CREATED AUTHOR AUTHOR'S ORGANIZ ATION 06/01/2022 [facility] DATE CREATED AUTHOR AUTHOR'S ORGANIZ ATION 05/30/2023 [facility] EPIC DATE CREATED AUTHOR AUTHOR'S ORGANIZ ATION 06/03/2023 [facility] DATE CREATED AUTHOR AUTHOR'S ORGANIZ ATION 06/10/2023 [facility] REASON FOR VISIT (unrecogniz ed section and content) LEFT EYE DISCOMFORT, SINUS C ONGESTION, HEADACHE, COUGHRIGHT HAND INJURY, HEAVY OBJECT FELL ONTO HAND Care Teams (unrecognized sec tion and content) Team Status: Active Member Role Status Dates NON STAFF Primary Care Provider Active Team Status: Inactive Member Role Status Dates Rachele Ram APRN Attending Provider Active Start: May 12, 2023 End: May 12, 2023 Team Status: Inactive Member Role Status Dates NON STAFF Primary Care Provider Active Start: June 03, 2023 End: June 03, 2023 Rachele Ram APRN Attending Provider Active Start: June 03, 2023 End: June 03, 2023 Goals (unrecognized section and content) Goals may be documented in a n alternate section FOR RECORDS PERTAINING TO PATIENTS WHO ARE OR HAVE BEEN ENROLLED IN A CHEMICAL DEPENDENCY/SUBSTANCEABUSE PROGRAM, SOME INFORMATION MAY BE OMITTED. This clinical summary was aggregated from multiple sources. Caution should be exercised in using it in the provision of clinical care. This summary normalizes information from multiple sources, and as a consequence, information in this document may materially change the coding, format and clinical context of patient data. In addition, data may be omitted in some cases. CLINICAL DECISIONS SHOULD BE BASED ON THE PRIMARY CLINICAL RECORDS. [facility] [employer] [facility]. provides no warranty or guarantee of the accuracy or completeness of information in this document.
[2023-07-12 22:11] LABS: Age Gdln ACOG Testing Note (.); HPV Aptima Negative (Negative); IGP, Aptima HPV, rfx 16/18,45 Note (.)
== END 2023-07-07 19:44 | disposition home or self-care (01) ==
LOC: LAB 19:43
PROVIDERS: Visit Provider Obstetrics & Gynecology
DX: Z01.419 Encounter for gynecological examination (general) (routine) without abnormal findings (principal)
CPT/HCPCS: 87624; G0145

== ENCOUNTER 2023-07-11 09:51 | Outpatient (OUT) | payer OTHER, SELFPAY ==
--- NOTE | 2023-07-11 09:54 | MM_ITS ---
Patient Name: SANTOS JONES MR#: [id number] : 1985 Exam Date: 07/11/2023 Ordering Doctor: DR Junior Borden . RADIOLOGY REPORT PROCEDURE: MM TOMOSYNTHESIS SCREENING BI COMPARISON: None. INDICATIONS: screening Calculator Name NCI Breast Cancer Risk Assessment Tool 5 Year Breast Cancer Risk 0.50% Lifetime Breast Cancer Risk 9.00% Personal Breast Cancer No Personal Ovarian Cancer No Treatments None Family Cancers Mother with lymphoma cancer at age 64. LOCATION: [facility] BREAST COMPOSITION: Scattered areas fibroglandular density. FINDINGS: DIAGNOSTIC CATEGORY 2--BENIGN FINDING: Scattered benign-appearing calcifications are present. Scattered benign-appearing lymph nodes are present. RIGHT BREAST: No significant suspicious finding. LEFT BREAST: No significant suspicious finding. RECOMMENDATIONS: ROUTINE MAMMOGRAM AND CLINICAL EVALUATION IN 12 MONTHS. PLEASE NOTE: A NORMAL MAMMOGRAM DOES NOT EXCLUDE THE POSSIBILITY OF BREAST CANCER. A CLINICALLY SUSPICIOUS PALPABLE LUMP SHOULD BE BIOPSIED. Dictated by: Nilson Cuevas MD on 07/11/2023 at 13:30 Approved by: Nilson Cuevas MD on 07/11/2023 at 13:31
--- NOTE | 2023-07-11 09:55 | US_ITS ---
The [address] [address] Patient Name: SANTOS JONES MRN: [id number] date: 1985 Sex: F Assigned Patient Location: [place] Current Patient Location: Accession/Order Number: [id number] Exam Date: 07/11/2023 10:00 Report Date: 07/11/2023 10:25 At the request of: YOUNG MOYA Procedure: US pelvis transvaginal EXAMINATION: US pelvis transvaginal HISTORY: right ovarian cyst N83.201 COMPARISON: 05/28/2023, 01/23/2022 FINDINGS: Transvaginal images The uterus is surgically absent. The right ovary measures 4.0 x 2.8 x 2.5 cm. Normal color and Doppler flow. Area of anechoic echogenicity measuring 2.2 x 2.0 x 2.0 cm. A simple cyst is favored. Additional subcentimeter follicles. The left ovary is not visualized No free fluid US/US pelvis transvaginal IMPRESSION: 2.2 cm right ovarian simple cyst Electronically authenticated by: DEZ RUANO Date: 07/11/2023 10:25
--- OUTSIDE RECORDS SUMMARY | 2023-07-11 10:10 | XMS_ITS | CCD ---
Author Name Unknown Address [address] [place] [address] Organization [facility] Care Team Providers Care [place] Repairer Name Role Phone Adilene Chu Unavailable Unavailable Unknown, Referring Provider Unavailable Unav ailable [facility] Unava ilable NITA, DR VIDAL Attending Unavailable NITA, DR VIDAL Consulting Unavailable NITA, DR VIDAL Admitting Unavailable TROY II, PROMISE Consulting Unavailable FILUTZEMIRNACLARA Consulting Unavailable [facility] Unava ilable AMBER, DR VAL Kruger Admitting Unavailable AMBER, DR VAL Kruger Attending Unavailable AMBER, DR VAL Kruger Consulting Unavailable [facility] Unava ilable NITA, DR VIDAL Attending Unavailable NITA, DR VIDAL Admitting Unavailable [facility] Unava ilable NITA, DR VIDAL Attending Unavailable NITA, DR VIDAL Consulting Unavailable NITA, DR VIDAL Admitting Unavailable [facility] Unava ilable NITA, DR VIDAL Attending Unavailable [place], DR DEZ Beal Consulting Unavailable NITA, DR VIDAL Admitting Unavailable NITA, DR VIDAL Consulting Unavailable Rachele Ram Unavailable GEO NOEL Referring Unavailable FRANCOISE DAWSON Primary Care Unavailable NON STAFF Primary Care Provider UnavailRASHEEDA Worrell Attending Provider Rachele Ram Attending Unavailable Rachele Ram Admitting Unavailable NON STAFF Primary Care Unavailable Unavailable Primary Care Provider UnavailALYSSA Choudhury Attending Unavailable YOUNG BORDEN Attending Unavailable ARMEN GARCIA Attending Unavailable YOUNG BORDEN Attending Unavailable Allergies Allergy Classification Reported Allergen(s) Allergy Type Date of Onset Reaction(s) Facility (1 source) Sulfamethoxazole / Trimethoprim Drug Allergy 8 [facility] Repository (3 sources) Sulfamethoxazole / Trimethoprim Drug Allergy 0 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] Onset: 06-01-2022 Episodic Other [...] 3V*on 024 XR hand RT min 3V* [facility] [place] [address] [place] [address] XRay Report Signed Patient: Santos Howe MR#: [id number] : 1985 Acct:[id number] Age/Sex: 38 / F ADM Date: 06/03/23 Loc: XDUCLY Room: Type: [facility] Attending Dr: Rachele Ram APRN Copies to: [...] Mark Clarke M.D.06/03/2023 2:57 PM Dictation Location: [place] [address] Transcribed By: [facility] 06/03/23 1455 Dictated By: Mark Calrke DO 06/03/23 1459 Signed By: 06/03/23 1458 [facility] XR hand RT min 3V* [facility] Mo-DV Other XR hand RT min 3V* [facility] Lien Enforcement Other XR hand RT min 3V* [address] Other XR hand RT min 3V* KEENAN Mota [address] [facility] Other XR hand RT min 3V* XRay Report [facility] Other XR hand RT min 3V* Signed [facility] Other XR hand RT min 3V* Patient: Santos Howe MR#: [id number] [facility] Other XR hand RT min 3V* [address] [facility] Other XR hand RT min 3V* : 1985 Acct:[id number] [facility] Other XR hand RT min 3V* Age/Sex: 38 / F ADM Date: 06/03/23 [facility] Other XR hand RT min 3V* Loc: XDUCLY Room: Type: [facility] Other XR hand RT min 3V* Attending Dr: Rachele Ram APRN [facility] Other XR hand RT min 3V* Copies to: Rachele Ram APRN [facility] Other XR hand RT min 3V* Ordering Provider: Rachele Ram APRN [facility] Other XR hand RT min 3V* Date of Service: 06/03/23 [facility] Other XR hand RT min 3V* XR/XR hand RT min 3V*: Injury [facility] Other XR hand RT min 3V* 4 views right hand plain film [facility] Other XR hand RT min 3V* COMPARISON: None [facility] Other XR hand RT min 3V* HISTORY: Fell 3 days ago. Bruising and swelling over the first through third metacarpals. History [facility] Other XR hand RT min 3V* of right hand fracture. [facility] Other XR hand RT min 3V* ACUTE FINDINGS: Cortical irregularity involving the dorsal distal aspect of the distal carpal bones [facility] Other XR hand RT min 3V* identified. Correlate with site of pain. This may correlate with the old fracture. [facility] Other XR hand RT min 3V* DEGENERATIVE CHANGE: Unremarkable [facility] Other XR hand RT min 3V* SOFT TISSUE FINDINGS: Unremarkable [facility] Other XR hand RT min 3V* JOINT EFFUSION: None [facility] Other XR hand RT min 3V* POSTOP CHANGES: None [facility] Other XR hand RT min 3V* BONY MINERALIZATION: Adequate [facility] Other XR hand RT min 3V* XR/XR hand RT min 3V* [facility] Other XR hand RT min 3V* IMPRESSION: Indeterminate age fracture of the distal dorsal aspect of the distal carpal bones. [facility] Other XR hand RT min 3V* Impression dictated by: Mark Clarke M.D.06/03/2023 2:57 PM [facility] Other XR hand RT min 3V* Dictation Location: [place] [address] [facility] Other XR hand RT min 3V* Transcribed By: AMINA 06/03/23 1457 [facility] Other XR hand RT min 3V* Dictated By: Mark Clarke DO 06/03/23 1451 [facility] Other XR hand RT min 3V* Signed By: [place] [employer]ien [employer] Other XR hand RT min 3V* 06/03/[address] [place] [address] [facility] Other HGB A1C (GLYCO-HGB)on 2023 Glucose [Mass/Vol] 108 mg/dL Normal [facility] Comment on above: Performed By: #### 2 4331-1 #### [facility] ([id number]) [address], [address] [place] [address] HbA1c (Bld) [Mass fraction] 5.4 % Normal 4.4-5.6 [facility] Comment on above: Result Comment: NOTE ADA Guidelines Result HgbA1c Normal : less than 5.7 % Prediabetes : 5.7 % to 6.4 % Diabetes : > 6.4 % Use with caution in patients with abnormal hemoglobin variants as the half-life of red blood cells and in vivo glycation rates are affected. Performed By: #### 2 4331-1 #### [facility] ([id number]) [address], [address] [place] [address] Lipid 1996 panelon 4 Cholesterol [Mass/Vol] 184 mg/dL Normal 150-200 [facility] Comment on above: Performed By: #### 2 4331-1 #### [facility] ([id number]) [address], [address] [place] [address] Cholesterol in HDL [Mass/Vol] 66 mg/dL Normal >39 [facility] Comment on above: Result Comment: HDL <40 mg/dL - High Risk HDL > or = 40mg/dL- Desirable HDL >60 mg/dL - Negative Risk Performed By: #### 2 4331-1 #### [facility] ([id number]) [address], [address] [place] [address] Cholesterol in LDL [Mass/Vol] 96 mg/dL Normal <130 [facility] Comment on above: Result Comment: LDL <100 mg/dL - Desirable LDL >160 mg/dL - High Risk Performed By: #### 2 4331-1 #### [facility] ([id number]) [address] [place] [address] Cholesterol in VLDL [Mass/Vol] 22 mg/dL Normal 0-30 [facility] Comment on above: Performed By: #### 2 4331-1 #### [facility] ([id number]) [address], [address] [place] [address] CHOLESTEROL:HDL 2.8 Normal 1.0-5.0 [facility] Comment on above: Performed By: #### 2 4331-1 #### [facility] ([id number]) [address] [place] [address] Triglyceride [Mass/Vol] 111 mg/dL Normal 27-150 [facility] Comment on above: Performed By: #### 2 4331-1 #### [facility] ([id number]) [address] [place] [address] BUNon 05-28-2022 Urea nitrogen [Mass/Vol] 15.0 mg/dL Normal 7.0-18.0 [facility] Comment on above: Performed By: #### ELSI COSTELLO #### [facility] [address] [place] [address] [address] Lucero Higuera CBC AUTO DIFFon 05-28-2022 BASO # 0.0 103/ul Normal 0.0-0.1 [facility] Comment on above: Performed By: #### C BC #### [facility] [address] [place] [address] Dr. Lucero Higuera Basophils/100 WBC (Bld) 0.2 % Normal 0.2-2.0 [facility] Comment on above: Performed By: #### C BC #### [facility] [address] [place] [address] Dr. Lucero Higuera EO # 0.0 103/ul Normal 0.0-0.7 [facility] Comment on above: Performed By: #### C BC #### [facility] [address] [place] [address] Dr. Lucero Higuera Eosinophils/100 WBC (Bld) 0.0 % Critically low 0.9-7.0 [facility] Comment on above: Performed By: #### C BC #### [facility] [address] [place] [address] Dr. Lucero Higuera Erythrocyte distribution width (RBC) [Ratio] 13.4 % Normal 11.0-15.0 [facility] Comment on above: Performed By: #### C BC #### [facility] [address] [place] [address] Dr. Lucero Higuera Hematocrit (Bld) [Volume fraction] 32.1 % Critically low 36.0-48.0 [facility] Comment on above: Performed By: #### C BC #### [facility] [address] [place] [address] Dr. Lucero Higuera Hemoglobin (Bld) [Mass/Vol] 11.9 g/dL Critically low 12.0-16.0 [facility] Comment on above: Performed By: #### C BC #### [facility] [address] [place] [address] Dr. Lucero Higuera IG # 0.04 10e3/ul Critically high 0.00-0.03 [facility] Comment on above: Performed By: #### C BC #### [facility] [address] [place] [address] Dr. Lucero Higuera IG % 0.3 % Normal 0.0-0.5 [facility] Comment on above: Performed By: #### C BC #### [facility] [address] [place] [address] Dr. Lucero Higuera LYMPH # 0.8 103/ul Critically low 1.2-3.8 [facility] Comment on above: Performed By: #### C BC #### [facility] [address] [place] [address] Dr. Lucero Higuera Lymphocytes/100 WBC (Bld) 6.1 % Critically low 20.5-60.0 [facility] Comment on above: Performed By: #### C BC #### [facility] [address] [place] [address] Dr. Lucero Higuera MANUAL DIFF REQ NO Normal [facility] Comment on above: Performed By: #### C BC #### [facility] [address] [place] [address] Dr. Lucero Higuera MCH (RBC) [Entitic mass] 30.4 pg Normal 26.7-34.0 [facility] Comment on above: Performed By: #### C BC #### [facility] [address] [place] [address] Dr. Lucero Higuera MCHC (RBC) [Mass/Vol] 37.1 g/dL Critically high 29.9-35.[address] [facility] Comment on above: Performed By: #### C BC #### [facility] [address] [place] [address] Dr. Lucero Higuera MCV (RBC) [Entitic vol] 82.1 fL Normal 81.0-99.[address] [facility] Comment on above: Performed By: #### C BC #### [facility] [address] [place] [address] Dr. Lucero Higuera MONO # 0.2 103/ul Critically low 0.3-0.8 [facility] Comment on above: Performed By: #### C BC #### [facility] [id number] Lucero Higuera Monocytes/100 WBC (Bld) 1.8 % Normal 1.7-12.0 [facility] Comment on above: Performed By: #### C BC #### [facility] [address] [place] [address] [address] Lucero Higuera NEUT # 12.1 103/ul Critically high 1.4-6.5 [facility] Comment on above: Performed By: #### C BC #### [facility] [address] [place] [address] Dr. Lucero Higuera Neutrophils/100 WBC (Bld) 91.6 % Critically high 43.0-75.[address] [facility] Comment on above: Performed By: #### C BC #### [facility] [address] [place] [address] Dr. Lucero Higuera Platelet mean volume (Bld) [Entitic vol] 9.0 fL Critically low 9.5-13.[address] [facility] Comment on above: Performed By: #### C BC #### [facility] [address] [place] [address] Dr. Lucero Higuera PLT 308 103/ul Normal 150-[address] [facility] Comment on above: Performed By: #### C BC #### [facility] [address] [place] [address] Dr. Lucero Higuera RBC 3.91 106/ul Critically low 4.20-5.[address] [facility] Comment on above: Performed By: #### C BC #### [facility] [address] [place] [address] Dr. Lucero Higuera WBC 13.2 103/ul Critically high 4.0-11.0 [facility] Comment on above: Performed By: #### C BC #### [facility] [address] [place] [address] Dr. Lucero Higuera BASO # 0.1 103/ul Normal 0.0-0.[address] [facility] Comment on above: Performed By: #### C BC #### [facility] [address] [place] [address] Dr. Lucero Higuera Basophils/100 WBC (Bld) 0.5 % Normal 0.2-2.0 [facility] Comment on above: Performed By: #### C BC #### [facility] [address] [place] [address] Dr. Lucero Higuera EO # 0.4 103/ul Normal 0.0-0.7 [facility] Comment on above: Performed By: #### C BC #### [facility] [address] [place] [address] Dr. Lucero Higuera Eosinophils/100 WBC (Bld) 3.8 % Normal 0.9-7.0 [facility] Comment on above: Performed By: #### C BC #### [facility] [address] [place] [address] Dr. Lucero Higuera Erythrocyte distribution width (RBC) [Ratio] 14.3 % Normal 11.0-15.0 [facility] Comment on above: Performed By: #### C BC #### [facility] [address] [place] [address] Dr. Lucero Higuera Hematocrit (Bld) [Volume fraction] 43.1 % Normal 36.0-48.0 [facility] Comment on above: Performed By: #### C BC #### [facility] [address] [place] [address] Dr. Lucero Higuera Hemoglobin (Bld) [Mass/Vol] 13.0 g/dL Normal 12.0-16.0 [facility] Comment on above: Performed By: #### C BC #### [facility] [address] [place] [address] Dr. Lucero Higuera IG # 0.04 10e3/ul Critically high 0.00-0.03 [facility] Comment on above: Performed By: #### C BC #### [facility] [address] [place] [address] Dr. Lucero Higuera IG % 0.3 % Normal 0.0-0.5 [facility] Comment on above: Performed By: #### C BC #### [facility] [address] [place] [address] Dr. Lucero Higuera LYMPH # 4.2 103/ul Critically high 1.2-3.[address] [facility] Comment on above: Performed By: #### C BC #### [facility] [address] [place] [address] Dr. Lucero Higuera Lymphocytes/100 WBC (Bld) 36.3 % Normal 20.5-60.0 [facility] Comment on above: Performed By: #### C BC #### [facility] [address] [place] [address] Dr. Lucero Higuera MANUAL DIFF REQ NO Normal [facility] Comment on above: Performed By: #### C BC #### [facility] [address] [place] [address] Dr. Lucero Higuera MCH (RBC) [Entitic mass] 29.3 pg Normal 26.7-34.0 [facility] Comment on above: Performed By: #### C BC #### [facility] [address] [place] [address] Dr. Lucero Higuera MCHC (RBC) [Mass/Vol] 30.2 g/dL Normal 29.9-35.[address] [facility] Comment on above: Performed By: #### C BC #### [facility] [address] [place] [address] Dr. Lucero Higuera MCV (RBC) [Entitic vol] 97.3 fL Normal 81.0-99.0 [facility] Comment on above: Performed By: #### C BC #### [facility] [address] [place] [address] Dr. Lucero Higuera MONO # 0.7 103/ul Normal 0.3-0.[address] [facility] Comment on above: Performed By: #### C BC #### [facility] [address] [place] [address] Dr. Lucero Higuera Monocytes/100 WBC (Bld) 6.0 % Normal 1.7-12.[address] [facility] Comment on above: Performed By: #### C BC #### [facility] [address] [place] [address] Dr. Lucero Higuera NEUT # 6.1 103/ul Normal 1.4-6.5 [facility] Comment on above: Performed By: #### C BC #### [facility] [address] [place] [address] Dr. Lucero Higuera Neutrophils/100 WBC (Bld) 53.1 % Normal 43.0-75.0 [facility] Comment on above: Performed By: #### C BC #### [facility] [address] [place] [address] Dr. Lucero Higuera Platelet mean volume (Bld) [Entitic vol] 9.3 fL Critically low 9.5-13.5 [facility] Comment on above: Performed By: #### C BC #### [facility] [address] [place] [address] Dr. Lucero Higuera PLT 369 103/ul Normal 150-450 [facility] Comment on above: Performed By: #### C BC #### [facility] [address] [place] [address] Dr. Lucero Higuera RBC 4.43 106/ul Normal 4.20-5.40 [facility] Comment on above: Performed By: #### C BC #### [facility] [address] [place] [address] Dr. Lucero Higuera WBC 11.4 103/ul Critically high 4.0-11.0 [facility] Comment on above: Performed By: #### C BC #### [facility] [address] [place] [address] Dr. Lucero Higuera CREATININEon 05-28-2022 Creatinine [Mass/Vol] 0.76 mg/dL Normal 0.55-1.02 [facility] Comment on above: Performed By: #### B UN, CREA #### [facility] [address] [place] [address] Dr. Lucero Higuera EGFR-AF SWISS >60 Normal >=60 [facility] Comment on above: Performed By: #### B UN, CREA #### [facility] [address] [place] [address] Dr. Lucero Higuera EGFR-NON AF SWISS >60 Normal >=60 [facility] Comment on above: Performed By: #### B UN, CREA #### [facility] [address] [place] [address] Dr. Lucero Higuera Covid-19 PCR ([facility])on 05-03 SARS-CoV-2 (COVID-19) RNA GISELL+probe Ql (Unsp spec) Not detected Normal NOT DETECTED [facility] Comment on above: Result Comment: This test is not yet approved or cleared by the [place] FDA. When there are no FDA-approved or cleared tests available, and other criteria are met, FDA can make tests available under an emergency access mechanism called an Emergency Use Authorization (EUA). The EUA for this test is supported by the [employer] of Health and Human Service's (HHS's) declaration [...] consistent with SARS-CoV-2. Performed By: #### C VDTB #### [facility] [address] [place] [address] Dr. Lucero Higuera PREG QUANT HCGon 05-26-2022 HCG QUANT <1 Normal [facility] Comment on above: Performed By: #### P REGQNT #### [facility] [address] [place] [address] Dr. Lucero Higuera HCG RANGE SEE BELOW Normal [facility] Comment on above: Result Comment: 5-50 0.2-1 WEEK 50-500 1-2 WEEKS 100-5,000 2-3 WEEKS 500-10,000 3-4 WEEKS 1,000-50,000 4-5 WEEKS 10,000-100,000 5-6 WEEKS 15,000-200,000 6-8 WEEKS 10,000-100,000 2-3 MONTHS Performed By: #### P REGQNT #### [facility] [address] [place] [address] [address] [address] Lucero Higuera TYPE AND SCREENon 05-26-2022 TYPE AND SCREEN Negative Normal [facility] Comment on above: Performed By: #### T NS #### [facility] [address] [place], [place] [address] Dr. Lucero Higuera US PELVIS AND TRANSVAGon [...] DEZ RUANO Date: 2022-01-23 19:[address] [facility] Cult, Urineon 04-06-2019 Bacteria identified Cx Nom (U) PATIENT: SANTOS HOWE LOCATION: [facility] BILL#: [id number] : 81 AGE: SEX: F ORDERED BY: [...] NS=NONSUSCEPTIBLEX=R EPORTED IN ERROR ___ Abnormal [facility] Work Phone: Bacteria identified Cx Nom (U) PATIENT: SANTOS HOWE LOCATION: [facility] BILL#: [id number] : 81 AGE: SEX: F ORDERED BY: PATRIZIA CHU: URINE COLLECTED: 04/06/19 19:49ANTIBIOTICS AT [facility].: RECEIVED : 04/07/19 00:18SITE: Clean Catch/Voided R E S U L T S URINE CULTURE,BACTERIAL PRELIM 04/08/19 09:01 ISOLATE1 : Enteric bacilli >100,000 CFU/ML IDENTIFICATION AND/OR ANTIBIOTIC SUSCEPTIBILITY IN PROGRESS. Abnormal [facility] Work Phone: IO UA (automated w/o microsc opy)on 04-06-2019 Protein (U) [Mass/Vol] Negative Negative [facility] Work Phone: IO UA (automated w/o microscopy) Negative Negative [facility] Work Phone: IO UA (automated w/o microscopy) 1.010 1.000-1.030 [facility] Work Phone: IO UA (automated w/o microscopy) Yellow Colorless-[place] ow [facility] Work Phone: IO UA (automated w/o microscopy) 6.0 5.0-8.0 [facility] Work Phone: IO UA (automated w/o microscopy) Trace Negative [facility] Work Phone: IO UA (automated w/o microscopy) Normal (0.2-1.0 mg/dl) Normal [facility] Work Phone: IO UA (automated w/o microscopy) Positive Negative [facility] Work Phone: IO UA (automated w/o microscopy) (+)small - 15 Negative [facility] Work Phone: IO UA (automated w/o microscopy) Cloudy Clear [facility] Work Phone: URINE CULTURE,BACTERIALon URINE CULTURE,BACTERIAL PATIENT: SANTOS HOWE LOCATION: [facility] [place] BILL#: [id number] : 81 AGE: SEX: F ORDERED BY: [...] DOSE DEPENDENT NS=NONSUSCEPTIBLE X=REPORTED IN ERROR Normal [facility] Comment on above: Performed By: #### U [facility] #### [facility] [address] [place] [address] Vital Signs Date Time Vital Sign Value Performing Clinician Facility 06-03-2023 14:00-0500 Body height 165.1 cm Rachele Ram Other [facility] Other 06-03-2023 14:00-0500 Body mass index (BMI) [Ratio] 28.72 kg/m2 Rachele Ram Other [facility] Other 06-03-2023 14:00-0500 Body temperature 98 [degF] Rachele Ram Other [facility] Other 06-03-2023 14:00-0500 Body weight 78.29 kg Rachele Ram Other [facility] Other 06-03-2023 14:00-0500 Respiratory rate 18 /min Rachele Ram Other [facility] Other 06-03-2023 14:00-0500 SaO2% (BldA) [Mass fraction] 96 % Rachele Yo Other [facility] Other 05-12-2023 17:40-0500 Body height 165.1 cm Rachele Ram Other [facility] Other 05-12-2023 17:40-0500 Body mass index (BMI) [Ratio] 28.29 kg/m2 Rachele Yo Other [facility] Other 05-12-2023 17:40-0500 Body temperature 98 [degF] Rachele Ram Other [facility] Other 05-12-2023 17:40-0500 Body weight 77.11 kg Rachele Ram Other [facility] Other 05-12-2023 17:40-0500 Respiratory rate 18 /min Rachele Ram Other [facility] Other 05-12-2023 17:40-0500 SaO2% (BldA) [Mass fraction] 97 % Rachele Ram Other [facility] Other 04-06-2019 20:42-0500 BMI (Body Mass Index) 28.06 kg/m2 Adilenecaro Chu [facility] Work Phone: 04-06-2019 20:42-0500 Body Temperature 98.3 [degF] Adilene Chu [facility] Work Phone: 04-06-2019 20:42-0500 Body weight 76.48 kg Adilene Chu [facility] Work Phone: 04-06-2019 20:42-0500 BP Diastolic 64 mm[Hg] Adilene Chu [facility] Work Phone: 04-06-2019 20:42-0500 BP Systolic 110 mm[Hg] Adilene Chu [facility] Work Phone: 04-06-2019 20:42-0500 BSA (Body Surface Area) 1.84 m2 Adilene Chu [facility] Work Phone: 04-06-2019 20:42-0500 Height 165.1 cm Adilene Chu [facility] Work Phone: 04-06-2019 20:42-0500 Pulse (Heart Rate) 73 /min Adilene Chu [facility] Work Phone: 04-06-2019 20:42-0500 Pulse Oximetry 97 % Adilene Chu [facility] Work Phone: 04-06-2019 20:42-0500 4 1 Adilene Chu [facility] Work Phone: Comment on above: Pain Scale Encounters Encounter Date Encounter Type Care Provider Facility Start: 07-07-2023 End: 07-07-2023 ambulatory YOUNG BORDEN Not Available Start: 06-13-2023 Chart abstracting Young Borden DO Work Phone: [facility] Start: 06-03-2023 End: 06-03-2023 ambulatory Rachele Ram Facility:[facility] Start: 06-03-2023 End: 06-03-2023 Patient encounter procedure [facility] Work Phone: Start: 06-03-2023 End: 06-03-2023 ambulatory NON STAFF [facility] Work Phone: Start: 06-03-2023 Office outpatient vi sit 15 minutes Rachele Ram [facility] Start: 05-30-2023 End: 05-30-2023 ambulatory ARMEN GARCIA Not Available Start: 05-30-2023 End: 05-31-2023 ambulatory [facility] Start: 05-26-2023 End: 05-26-2023 ambulatory YOUNG BORDEN Not Available Start: 05-24-2023 End: 05-25-2023 ambulatory ALYSSA NAVAS Not Available Start: 05-12-2023 End: 05-12-2023 ambulatory Rachele Ram Other [place] [employer] Other Start: 05-12-2023 Office outpatient ne w 30 minutes Rachele Ram [facility] Start: 05-12-2023 End: 05-12-2023 Patient encounter procedure [facility] Work Phone: Start: 05-28-2022 Encounter for preprocedural laboratory examination DR YOUNG BORDEN [facility] Start: 05-28-2022 End: 05-28-2022 [facility] Facility:[facility] Start: 05-26-2022 End: 05-27-2022 [facility] Facility: Start: 05-26-2022 End: 05-27-2022 Encounter for preprocedural laboratory examination [facility] Facility: Start: 05-24-2022 Encounter for other preprocedural examination DR YOUNG BORDEN [facility] Start: 05-18-2022 End: 05-19-2022 [facility] Facility:[facility] Start: 05-18-2022 End: 05-19-2022 Encounter for other preprocedural examination [facility] Facility: Start: 01-23-2022 End: 01-23-2022 [facility] Facility:[facility] Start: 01-17-2022 End: 01-17-2022 [facility] Facility: Procedures Date Procedure Procedure Detail Performing [...] EST Office Visit [facility] [address] [place] [address] Young Borden, [address] [place] [address] [facility] Start: 2023 Screening for malign ant neoplasm of breast Mammogram [facility] Start: 12-31-2022 Influenza vaccination Influenza Vacc ine (#1) [facility] Payers Date Payer Category Payer Self-pay [id number] 2022 Unknown [id number] 2022 Unknown [facility] [id number] 2022-Present [phone] [address] [facility] [place] [address] [id number] 1983 Unknown [id number] [id number] 3 1983 Unknown [id number] 2.16.840.1.098390.3.579.2.59 3 1983 Unknown [id number] 2.16.840.1.955287.3.579.2.59 3 1983 Unknown [id number] 2.16.840.1.144294.3.579.2.59 3 1983 Unknown [id number] 2.16.840.1.748785.3.579.2.59 3 1983 Unknown [id number] 2.16.840.1.071614.3.579.2.12 86 1983 Unknown [id number] 2.16.840.1.187007.3.579.2.12 59 1983 Unknown [id number] 2.16.840.1.930160.3.579.2.12 59 1983 Unknown [id number] 2.16.840.1.572998.3.579.2.12 59 1983 Unknown [id number] [id number] 59 1959 Self-pay [id number] Unknown [employer] [id number] Unknown [id number] [id number] 1 Social History Date Type Detail Facility Sex Assigned At [facility] Other Start: 09-05-2019 Tobacco smoking status [facility] Current some day smoker [facility] Start: 1985 Sex Assigned At Female [facility] Start: 06-13-2023 Tobacco smoking status [facility] Never smoked tobacco [facility] Start: 06-13-2023 Alcohol intake Current drinke r of alcohol (finding) [facility] Start: 06-13-2023 Alcohol Comment caffeine: 1-2 cups per day [facility] Start: 1985 Sex Assigned At Not on file [facility] NEGATED: Highlighted row - - [facility] Work Phone: Functional Status Date Assessment Result Facility NEGATED: Highlighted row Functional performance Functional status health issues are not documented Disease [facility] [employer] Work Phone: Mental Status Date Assessment Result Facility NEGATED: Highlighted row Cognitive function [Interpretation] Cognitive status health issues are not documented Disease [facility] [employer] Work Phone: Evaluation note 06-03-2023 Note Date [...] Hand fracture home care material was printed [facility] Other Evaluation note 05-12-2023 Note Date & [...] understanding and is agreeable to treatment plan [facility] Other History general Narrative - Reported 2023 Note Date & Type Note Facility 2023 History general N arrative - Reported Type Medical History chronic depression Surgical History nasal reconstruction Surgical History cholecystectomy 04/2023 Surgical History hysterectomy 05/2022 Hospitalization History See Above [facility] Other History general Narrative - Reported 2023 Note Date & Type Note Facility 2023 History general N arrative - Reported Type Medical History chronic depression Surgical History nasal reconstruction Surgical History cholecystectomy 04/2023 Surgical History hysterectomy 05/2022 Hospitalization History 3 child births [facility] Other Clinical Note 05-28-2022 Note Date & Type Note Facility 05-28-2022 Note OPERATIVE NOTE OPERATION DATE: 05/28/2022 PROCEDURE: [facility] assisted laparoscopic hysterectomy with bilateral salpingectomy with cystoscopy. PREOPERATIVE DIAGNOSIS: Menorrhagia, dysmenorrhea. POSTOPERATIVE DIAGNOSIS: Menorrhagia, dysmenorrhea. ANESTHESIA: General. SURGEON: Young Borden D.O. MANAGER COMPENSATION: PATO Astorga URINE OUTPUT: Yellow and clear. [...] Sponge, lap, needle counts correct x2. [facility] Evaluation note Note Date & Type Note Facility Evaluation note No assessment information [facility] Work Phone: Summary Purpose Family History No Family History Records Found Mother Name Dates Details No pertinent family history( V49.89, Z78.9) Status:Active Father Name Dates Details No pertinent family history( V49.89, Z78.9) Status:Active Mother Name Dates Details No pertinent family history( V49.89, Z78.9) Status:Active Father Name Dates Details No pertinent family history( V49.89, Z78.9) Status:Active Relationship Condition Age at Onset Recorded Date/T roxi Not Specified Depression Unknown Lymphoma Unknown grandparent Depression Unknown Advance Directives No Advanced Directives Records Found Advance Directive Response Recorded Date/ Time Advance Directives No September 04, 2019 2:03pm Chief Complaint and Reason for Visit Chief Complaint Left Eye Discomfort, Sinus Congestion, H Additional Source Comments INFORMATION SOURCE (unrecogn ized section and content) DATE CREATED AUTHOR 04/07/2019 [employer] DATE CREATED AUTHOR AUTHOR'S ORGANIZ ATION 04/09/2019 [facility] DATE CREATED AUTHOR AUTHOR'S ORGANIZ ATION 06/01/2022 [facility] DATE CREATED AUTHOR AUTHOR'S ORGANIZ ATION 06/03/2023 [facility] DATE CREATED AUTHOR AUTHOR'S ORGANIZ ATION 06/10/2023 [facility] DATE CREATED AUTHOR AUTHOR'S ORGANIZ ATION 07/08/2023 [facility] EPIC REASON FOR VISIT (unrecogniz ed section and [...] BE BASED ON THE PRIMARY CLINICAL RECORDS. [facility] [employer] [facility]. provides no warranty or guarantee of the accuracy or completeness of information in this document.
== END 2023-07-11 09:52 | disposition home or self-care (01) ==
LOC: US 09:51
PROVIDERS: Visit Provider Obstetrics & Gynecology
DX: N83.201 Unspecified ovarian cyst, right side (principal); Z12.31 Encounter for screening mammogram for malignant neoplasm of breast; Z80.7 Family history of other malignant neoplasms of lymphoid, hematopoietic and related tissues; N83.291 Other ovarian cyst, right side
CPT/HCPCS: 76830; 77063; 77067

== ENCOUNTER 2024-07-23 18:09 | Outpatient (REF) | payer OTHER, SELFPAY ==
--- OUTSIDE RECORDS SUMMARY | 2024-07-23 18:14 | XMS_ITS | CCD ---
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 Role Phone Adilene Chu Unavailable Unavailable Unknown, Referring Provider Unavailable Unav ailable [facility] Unava ilable SUHA, DR VIDAL Attending Unavailable SUHA, DR VIDAL Consulting Unavailable SUHA, DR VIDAL Admitting Unavailable TROY II, PROMISE Consulting Unavailable FILUTZECLARA Consulting Unavailable [facility] Unava ilable AMBER, DR VAL Kruger Admitting Unavailable AMBER, DR VAL Kruger Attending Unavailable AMBER, DR VAL Kruger Consulting Unavailable [facility] Unava ilable SUHA, DR VIDAL Attending Unavailable SUHA, DR VIDAL Admitting Unavailable [facility] Unava ilable SUHA, DR VIDAL Attending Unavailable SUHA, DR VIDAL Consulting Unavailable SUHA, DR VIDAL Admitting Unavailable [facility] Unava ilable SUHA, DR VIDAL Attending Unavailable [place], DR DEZ Beal Consulting Unavailable SUHA, DR VIDAL Admitting Unavailable SUHA, DR VIDAL Consulting Unavailable Rachele Ram Unavailable NON STAFF Primary Care Provider UnavailRASHEEDA Worrell Attending Provider Rachele Ram Attending Unavailable Rachele Ram Admitting Unavailable NON STAFF Primary Care Unavailable Unavailable Primary Care Provider UnavailALYSSA Choudhury Attending Unavailable YOUNG BORDEN Attending Unavailable ARMEN GARCIA Attending Unavailable YOUNG BORDEN Attending Unavailable DOUGLAS, JAYRO Referring Unavailable DOUGLAS, JAYRO Primary Care Unavailable DOUGLAS, JAYRO Referring Unavailable DOUGLAS, JAYRO Primary Care Unavailable Carli Abbasi MD Primary Care Provider [phone] Allergies Allergy Classification Reported Allergen(s) Allergy Type Date of Onset Reaction(s) Facility (1 source) Sulfamethoxazole / Trimethoprim Drug Allergy 8 [facility] Repository (6 sources) Sulfamethoxazole / Trimethoprim Drug Allergy 0 [facility] (6 sources) Sulfamethoxazole; Translations: [sulfamethoxazole] Drug Allergy [address] [facility] (6 sources) Trimethoprim; Translations: [trimethoprim] Drug Allergy [address] [facility] (1 source) Sulfamethoxazole / Trimethoprim; Translations: [SULFAMETHOXAZOLE-TR IMETHOPRIM] Drug Allergy 0 [facility] Repository Medications Current Medications Medication Drug Class(es) Dates Sig (Normalized) Sig (Original) amoxicillin 875 mg / clavulanate 125 mg oral tablet (1 source) Penicillin-class Antibacterial Start: 05-12-2023 take 1 tablet by mouth every twelve hours Amoxicillin-Pot Clavulanate 875-125 MG 1 tablet Orally every 12 hrs for 10 May, Active ARIPiprazole (6 sources) Atypical Antipsychotic Start: 05-12-2023 Abilify May, Active ARIPiprazole (Ab ilify) 5 MG tablet 1 tablet Orally BED TIME for 90 days Active busPIRone hydrochloride 10 mg oral tablet (6 sources) take 1 tablet by mouth in the morning busPIRone (Buspar) 10 MG tablet Take 10 mg by mouth in the morning and 10 mg in the evening. Active cholecalciferol 0.025 mg oral tablet (1 source) Vitamin D Start: 020 take 2000 [IU] by mouth once daily Cholecalciferol (Vitamin D3) Active 2000 UNIT PO Daily September 06, 2019 11:00pm docusate sodium 100 mg oral capsule (4 sources) docusate sodium (Colace) 100 MG capsule 1 (one) time each day at the same time Active DULoxetine (7 sources) Serotonin and Norepinephrine Reuptake Inhibitor Start: 024 Cymbalta May, Active DULoxetine (Cymb cuba) [address] capsule 1 (one) time each day at the same time Active ferrous sulfate 90 mg oral tablet (4 sources) Ferrous Sulfate (iron) 90 (18 Fe) MG tablet 1 (one) time each day at the same time Active glycopyrrolate 1 mg oral tablet (3 sources) take 1 tablet by mouth twice daily glycopyrrolate (Robinul) 1 MG tablet Take by mouth 2 (two) times a day Active hydrOXYzine pamoate 25 mg oral capsule (6 sources) Antihistamine hydrOXYzine pamo ate (Vistaril) 25 MG capsule 1 (one) time each day at the same time Active lamoTRIgine (6 sources) Mood Stabilizer, Anti-epileptic Agent Start: 05-12-19 24 lamoTRIgine May, Active take 1 tablet by quiana th once daily in the morning lamoTRIgine (LaMICtal) 25 MG tablet TAKE ONE TABLET BY MOUTH EVERY MORNING Orally morning for 90 days Active lutein 6 mg oral capsule (4 sources) Lutein (KP Lutei n) 6 MG capsule Oral Active omega-3 acid ethyl esters (intermediate) 1000 mg oral capsule (2 sources) Start: 07-13-19 25 omega-3 acid ethyl esters (Lovaza) 1 g capsule every 12 (twelve) hours 07/12/2024 Active tobramycin 3 mg/ml ophthalmic solution (4 sources) Aminoglycoside Antibacterial Start: 07-11-19 23 tobramycin (Tobrex) 0.3 % ophthalmic solution 07/10/2022 Active traZODone hydrochloride 50 mg oral tablet (1 [...] 11:00pm vilazodone hydrochloride 10 mg oral tablet (4 sources) vilazodone (Viibryd) 10 mg tablet 1 (one) time each day at the same time Active Completed/Discontinued Medications Medication Drug Class(es) Dates [...] PERINEAL PAIN] Onset: 05-28-2022 Episodic Anxiety disorders (3 sources) Anxiety disorder, unspecified; Translations: [Generalized anxiety disorder] Onset: 06-01-2022 Chronic Genitourinary symptoms and ill-defined [...] Mood disorders; Translations: [DEPRESSION UNSPECIFIED] Onset: 06-01-2022 Nonspecific chest pain (1 source) Chest pain, unspecified; Translations: [Chest pain, unspecified] Onset: 07-13-2024 Episodic Other aftercare (1 source) Other snf (current) drug therapy; Translations: [OTH HALF-WAY CURRENT DRUG THERAPY] Onset: 06-01-2022 Episodic Other connective tissue disease (1 source) Other symptoms and signs involving the musculoskeletal system Episodic Other injuries and conditions due to external causes (1 source) Injury, unspecified, initial encounter Episodic Other screening for suspected conditions (not mental disorders or infectious disease) (2 sources) Patient encounter status; Translations: [Encounter for screening mammogram for malignant neoplasm of breast] 07-23-2024 Episodic Other upper respiratory infections (1 source) [...] 3V*on 024 XR hand RT min 3V* [facility] Main [place] [id number] XRay Report Signed Patient: Santos Howe MR#: [id number] : 1985 Acct:[id number] Age/Sex: 38 / F ADM Date: 06/03/23 Loc: XDUCLY Room: Type: [facility] Attending Dr: Rachele Ram APRN Copies [...] Mark Clarke M.D.06/03/2023 2:57 PM Dictation Location: [place] [address] Transcribed By: [facility] 06/03/23 1457 Dictated By: Mark Clarke DO 06/03/23 1451 Signed By: 06/03/23 145 Normal [facility] XR hand RT min 3V* [facility] [employer] Other XR hand RT min 3V* [facility] [place] Other XR hand RT min 3V* [address] [place] [address] [place] Other XR hand RT min 3V* [place] [address] [place] Other XR hand RT min 3V* XRay Report [place] Other XR hand RT min 3V* Signed [place] Other XR hand RT min 3V* Patient: Santos Howe MR#: [id number] [place] Other XR hand RT min 3V* [id number] [place] Other XR hand RT min 3V* : 1985 Acct:[id number] [place] Other XR hand RT min 3V* Age/Sex: 38 / F ADM Date: 06/03/23 [place] Other XR hand RT min 3V* Loc: XDUCLY Room: Type: REG CL [place] Other XR hand RT min 3V* Attending Dr: Rachele Ram APRN [place] Other XR hand RT min 3V* Copies to: Rachele Ram APRN [place] Other XR hand RT min 3V* Ordering Provider: Rachele Ram APRN [place] Other XR hand RT min 3V* Date of Service: 06/03/23 [place] Other XR hand RT min 3V* XR/XR hand RT min 3V*: Injury [place] Other XR hand RT min 3V* 4 views right hand plain film [place] Other XR hand RT min 3V* COMPARISON: None [place] Other XR hand RT min 3V* HISTORY: Fell 3 days ago. Bruising and swelling over the first through third metacarpals. History [place] Other XR hand RT min 3V* of right hand fracture. [place] Other XR hand RT min 3V* ACUTE FINDINGS: Cortical irregularity involving the dorsal distal aspect of the distal carpal bones [place] Other XR hand RT min 3V* identified. Correlate with site of pain. This may correlate with the old fracture. [place] Other XR hand RT min 3V* DEGENERATIVE CHANGE: Unremarkable [place] Other XR hand RT min 3V* SOFT TISSUE FINDINGS: Unremarkable [place] Other XR hand RT min 3V* JOINT EFFUSION: None [place] Other XR hand RT min 3V* POSTOP CHANGES: None [place] Other XR hand RT min 3V* BONY MINERALIZATION: Adequate [place] Other XR hand RT min 3V* XR/XR hand RT min 3V* [place] Other XR hand RT min 3V* IMPRESSION: Indeterminate age fracture of the distal dorsal aspect of the distal carpal bones. [place] Other XR hand RT min 3V* Impression dictated by: Mark Clarke M.D.06/03/2023 2:57 PM [place] Other XR hand RT min 3V* Dictation Location: [place] [address] [place] Other XR hand RT min 3V* Transcribed By: PWS 06/03/23 [facility] [place] Other XR hand RT min 3V* Dictated By: Mark Clarke DO 06/03/23 [facility] [place] Other XR hand RT min 3V* Signed By: [place] Other XR hand RT min 3V* 06/03/[address] [place] [address] [place] Other BUNon 05-28-2022 Urea nitrogen [Mass/Vol] 15.0 mg/dL Normal 7.0-18.0 [facility] Comment on above: Performed By: #### B UN, CREA #### [facility] [address] [place] [address] Dr. Lucero Higuera CBC AUTO DIFFon 05-28-2022 BASO # 0.0 103/ul Normal 0.0-0.1 [facility] Comment on above: Performed By: #### C BC #### [facility] [address] [place] [address] Dr. Lucero Higuera Basophils/100 WBC (Bld) 0.2 % Normal 0.2-2.0 [facility] Comment on above: Performed By: #### C BC #### [facility] [address] [place] [address] Dr. Lucero Higuera EO # 0.0 103/ul Normal 0.0-0.7 [facility] Comment on above: Performed By: #### C BC #### [facility] [address] [place] [address] [address] Lucero Higuera Eosinophils/100 WBC (Bld) 0.0 % Critically low 0.9-7.0 [facility] Comment on above: Performed By: #### C BC #### [facility] [address] [place] [address] Dr. Lucero Higuera Erythrocyte distribution width (RBC) [Ratio] 13.4 % Normal 11.0-15.0 [facility] Comment on above: Performed By: #### C BC #### [facility] [address] [place] [address] Dr. Lucero Higuera Hematocrit (Bld) [Volume fraction] 32.1 % Critically low 36.0-48.0 [facility] Comment on above: Performed By: #### C BC #### [facility] [address] [place] [address] Dr. Lucero Higuera Hemoglobin (Bld) [Mass/Vol] 11.9 g/dL Critically low 12.0-16.0 [facility] Comment on above: Performed By: #### C BC #### [facility] [address] [place] [address] Dr. Lucero Higuera IG # 0.04 10e3/ul Critically high 0.00-0.03 [facility] Comment on above: Performed By: #### C BC #### [facility] [address] [place] [address] Dr. Lucero Higuera IG % 0.3 % Normal 0.0-0.5 [facility] Comment on above: Performed By: #### C BC #### [facility] [address] [place] [address] Dr. Lucero Higuera LYMPH # 0.8 103/ul Critically low 1.2-3.8 [facility] Comment on above: Performed By: #### C BC #### [facility] [address] [place] [address] Dr. Lucero Higuera Lymphocytes/100 WBC (Bld) 6.1 % Critically low 20.5-60.0 [facility] Comment on above: Performed By: #### C BC #### [facility] [address] [place] [address] [address] Lucero Higuera MANUAL DIFF REQ NO Normal [facility] Comment on above: Performed By: #### C BC #### [facility] [address] [place] [address] Dr. Lucero Higuera MCH (RBC) [Entitic mass] 30.4 pg Normal 26.7-34.0 [facility] Comment on above: Performed By: #### C BC #### [facility] [address] [place] [address] Dr. Lucero Higuera MCHC (RBC) [Mass/Vol] 37.1 g/dL Critically high 29.9-35.2 [facility] Comment on above: Performed By: #### C BC #### [facility] [address] [place] [address] Dr. Lucero Higuera MCV (RBC) [Entitic vol] 82.1 fL Normal 81.0-99.0 [facility] Comment on above: Performed By: #### C BC #### [facility] [address] [place] [address] Dr. Lucero Higuera MONO # 0.2 103/ul Critically low 0.3-0.8 [facility] Comment on above: Performed By: #### C BC #### [facility] [address] [place] [address] Dr. Lucero Higuera Monocytes/100 WBC (Bld) 1.8 % Normal 1.7-12.0 [facility] Comment on above: Performed By: #### C BC #### [facility] [address] [place] [address] Dr. Lucero Higuera NEUT # 12.1 103/ul Critically high 1.4-6.5 [facility] Comment on above: Performed By: #### C BC #### [facility] [address] [place] [address] Dr. Lucero Higuera Neutrophils/100 WBC (Bld) 91.6 % Critically high 43.0-75.0 [facility] Comment on above: Performed By: #### C BC #### [facility] [address] [address] [address] Lucero Higuera Platelet mean volume (Bld) [Entitic vol] 9.0 fL Critically low 9.5-13.5 [facility] Comment on above: Performed By: #### C BC #### [facility] [address] [place] [address] [address] Lucero Higuera PLT 308 103/ul Normal 150-450 [facility] Comment on above: Performed By: #### C BC #### [facility] [address] [place] [address] [address] Lucero Higuera RBC 3.91 106/ul Critically low 4.20-5.40 [facility] Comment on above: Performed By: #### C BC #### [facility] [address] [place] [address] Dr. Lucero Higuera WBC 13.2 103/ul Critically high 4.0-11.0 [facility] Comment on above: Performed By: #### C BC #### [facility] [address] [place] [address] Dr. Lucero Higuera BASO # 0.1 103/ul Normal 0.0-0.1 [facility] Comment on above: Performed By: #### C BC #### [facility] [address] [place] [address] Dr. Lucero Higuera Basophils/100 WBC (Bld) 0.5 % Normal 0.2-2.0 [facility] Comment on above: Performed By: #### C BC #### [facility] [address] [place] [address] Dr. Lucero Higuera EO # 0.4 103/ul Normal 0.0-0.7 [facility] Comment on above: Performed By: #### C BC #### [facility] [address] [place] [address] Dr. Lucero Higuera Eosinophils/100 WBC (Bld) 3.8 % Normal 0.9-7.0 [facility] Comment on above: Performed By: #### C BC #### [facility] [address] [place] [address] Dr. Lucero Higuera Erythrocyte distribution width (RBC) [Ratio] 14.3 % Normal 11.0-15.0 [facility] Comment on above: Performed By: #### C BC #### [facility] [address] [place] [address] Dr. Lucero Higuera Hematocrit (Bld) [Volume fraction] 43.1 % Normal 36.0-48.0 [facility] Comment on above: Performed By: #### C BC #### [facility] [address] [place] [address] Dr. Lucero Higuera Hemoglobin (Bld) [Mass/Vol] 13.0 g/dL Normal 12.0-16.0 [facility] Comment on above: Performed By: #### C BC #### [facility] [address] [place] [address] Dr. Lucero Higuera IG # 0.04 10e3/ul Critically high 0.00-0.03 [facility] Comment on above: Performed By: #### C BC #### [facility] [address] [place] [address] Dr. Lucero Higuera IG % 0.3 % Normal 0.0-0.5 [facility] Comment on above: Performed By: #### C BC #### [facility] [address] [place] [address] Dr. Lucero Higuera LYMPH # 4.2 103/ul Critically high 1.2-3.8 [facility] Comment on above: Performed By: #### C BC #### [facility] [address] [place] [address] Dr. Lucero Higuera Lymphocytes/100 WBC (Bld) 36.3 % Normal 20.5-60.0 [facility] Comment on above: Performed By: #### C BC #### [facility] [address] [place] [address] Dr. Lucero Higuera MANUAL DIFF REQ NO Normal [facility] Comment on above: Performed By: #### C BC #### [facility] [address] [place] [address] Dr. Lucero Higuera MCH (RBC) [Entitic mass] 29.3 pg Normal 26.7-34.0 [facility] Comment on above: Performed By: #### C BC #### [facility] [address] [place] [address] Dr. Lucero Higuera MCHC (RBC) [Mass/Vol] 30.2 g/dL Normal 29.9-35.2 [facility] Comment on above: Performed By: #### C BC #### [facility] [address] [place] [address] Dr. Lucero Higuera MCV (RBC) [Entitic vol] 97.3 fL Normal 81.0-99.0 [facility] Comment on above: Performed By: #### C BC #### [facility] [address] [place] [address] Dr. Lucero Higuera MONO # 0.7 103/ul Normal 0.3-0.8 [facility] Comment on above: Performed By: #### C BC #### [facility] [address] [place] [address] Dr. Lucero Higuera Monocytes/100 WBC (Bld) 6.0 % Normal 1.7-12.0 [facility] Comment on above: Performed By: #### C BC #### [facility] [address] [place] [address] Dr. Lucero Higuera NEUT # 6.1 103/ul Normal 1.4-6.5 [facility] Comment on above: Performed By: #### C BC #### [facility] [address] [place] [address] Dr. Lucero Higuera Neutrophils/100 WBC (Bld) 53.1 % Normal 43.0-75.0 [facility] Comment on above: Performed By: #### C BC #### [facility] [address] [place] [address] Dr. Lucero Higuera Platelet mean volume (Bld) [Entitic vol] 9.3 fL Critically low 9.5-13.5 [facility] Comment on above: Performed By: #### C BC #### [facility] [address] [place] [address] Dr. Lucero Higuera PLT 369 103/ul Normal 150-450 [facility] Comment on above: Performed By: #### C BC #### [facility] [address] [place] [address] Dr. Lucero Higuera RBC 4.43 106/ul Normal 4.20-5.40 [facility] Comment on above: Performed By: #### C BC #### [facility] [address] [place] [address] Dr. Lucero Higuera WBC 11.4 103/ul Critically high 4.0-11.0 [facility] Comment on above: Performed By: #### C BC #### [facility] [address] [place] [address] Dr. Lucero Higuera CREATININEon 05-28-2022 Creatinine [Mass/Vol] 0.76 mg/dL Normal 0.55-1.02 [facility] Comment on above: Performed By: #### B UN, CREA #### [facility] [address] [place] [address] Dr. Lucero Higuera EGFR-AF SAMMARINESE >60 Normal >=60 [facility] Comment on above: Performed By: #### B UN, CREA #### [facility] [address] [place] [address] Dr. Lucero Higuera EGFR-NON AF SAMMARINESE >60 Normal >=60 [facility] Comment on above: Performed By: #### B UN, CREA #### [facility] [address] [place] [address] Dr. Lucero Higuera Covid-19 PCR (CVDTB)on 05-03 SARS-CoV-2 (COVID-19) RNA GISELL+probe Ql (Unsp spec) Not detected Normal NOT DETECTED [facility] Comment on above: Result Comment: This test is not yet approved or cleared by the [place] FDA. When there are no FDA-approved or cleared tests available, and other criteria are met, FDA can make tests available under an emergency access mechanism called an Emergency Use Authorization (EUA). The EUA for this test is supported by the [place] of Health and Human Service's (HHS's) declaration [...] SARS-CoV-2. Performed By: #### C VDTBH #### [facility] [address] [place] [address] Dr. Lucero Higuera PREG QUANT HCGon 05-26-2022 HCG QUANT <1 Normal [facility] Comment on above: Performed By: #### P REGQNT #### [facility] [address] [place] [address] Dr. Lucero Higuera HCG RANGE SEE BELOW Normal [facility] Comment on above: Result Comment: 5-50 0.2-1 WEEK 50-500 1-2 WEEKS 100-5,000 2-3 WEEKS 500-10,000 3-4 WEEKS 1,000-50,000 4-5 WEEKS 10,000-100,000 5-6 WEEKS 15,000-200,000 6-8 WEEKS 10,000-100,000 2-3 MONTHS Performed By: #### P REGQNT #### [facility] [address] [place] [address] Dr. Lucero Higuera TYPE AND SCREENon 05-26-2022 TYPE AND SCREEN Negative Normal [facility] Comment on above: Performed By: #### T NS #### [facility] [address] [place] [address] Dr. Lucero Higuera US PELVIS AND TRANSVAGon [...] DEZ RUANO Date: 2022-01-23 19:25 Normal [facility] Cult, Urineon 04-06-2019 Bacteria identified Cx Nom (U) PATIENT: SANTOS HOWE [place] [facility] [place] [id number] : 81 AGE: SEX: F ORDERED BY: [...] NS=NONSUSCEPTIBLEX=R EPORTED IN ERROR ___ Abnormal [facility] Work Phone: Bacteria identified Cx Nom (U) PATIENT: SANTOS HOWE [place] [facility] [id number] : 81 AGE: SEX: F ORDERED BY: PATRIZIA CHU: URINE COLLECTED: 04/06/19 19:49ANTIBIOTICS AT [facility]GH[facility].: RECEIVED : 04/07/19 00:18SITE: Clean Catch/Voided R E S U L T S URINE CULTURE,BACTERIAL PRELIM 04/08/19 09:01 ISOLATE1 : Enteric bacilli >100,000 CFU/ML IDENTIFICATION AND/OR ANTIBIOTIC SUSCEPTIBILITY IN PROGRESS. Abnormal [facility] Work Phone: IO UA (automated w/o microsc opy)on 04-06-2019 Protein (U) [Mass/Vol] Negative Negative [facility] Work Phone: IO UA (automated w/o microscopy) Negative Negative [facility] Work Phone: IO UA (automated w/o microscopy) 1.010 1.000-1.030 [facility] Work Phone: IO UA (automated w/o microscopy) Yellow Colorless-[place] [facility] Work Phone: IO UA (automated w/o microscopy) 6.0 5.0-8.0 [facility] Work Phone: IO UA (automated w/o microscopy) Trace Negative [facility] Work Phone: IO UA (automated w/o microscopy) Normal (0.2-1.0 mg/dl) Normal [facility] Work Phone: IO UA (automated w/o microscopy) Positive Negative [facility] Work Phone: IO UA (automated w/o microscopy) (+)small - 15 Negative [facility] Work Phone: IO UA (automated w/o microscopy) Cloudy Clear [facility] Work Phone: URINE CULTURE,BACTERIALon URINE CULTURE,BACTERIAL PATIENT: SANTOS HOWE [place] [facility] [id number] : 81 AGE: SEX: F ORDERED BY: ADILNEE CHU SOURCE: URINE COLLECTED: 04/06/19 19:49 ANTIBIOTICS [...] DOSE DEPENDENT NS=NONSUSCEPTIBLE X=REPORTED IN ERROR Normal [facility] Comment on above: Performed By: #### U [facility] #### [facility] [address] [place] [address] Vital Signs Date Time Vital Sign Value Performing Clinician Facility 07-23-2024 15:04-0400 Body mass index (BMI) [Ratio] 31.7 kg/m2 Young Suha DO Work Phone: [facility] 07-23-2024 15:04-0400 Body weight 89.09 kg Young Suha DO Work Phone: [facility] 07-23-2024 15:04-0400 Diastolic blood pressure 70 mm[Hg] Young Suha DO Work Phone: [facility] 07-23-2024 15:04-0400 Systolic blood pressure 104 mm[Hg] Young Suha Aseptia Work Phone: [facility] 06-03-2023 14:00-0500 Body height 165.1 cm Rachele Ram Other [facility] 06-03-2023 14:00-0500 Body mass index (BMI) [Ratio] 28.72 kg/m2 Rachele Ram Other [facility] 06-03-2023 14:00-0500 Body temperature 98 [degF] Rachele Ram Other [facility] 06-03-2023 14:00-0500 Body weight 78.29 kg Rachele Ram Other [facility] 06-03-2023 14:00-0500 Respiratory rate 18 /min Rachele Ram Other [facility] 06-03-2023 14:00-0500 SaO2% (BldA) [Mass fraction] 96 % Rachele Yo Other [facility] 05-12-2023 17:40-0500 Body height 165.1 cm Rachele Ram Other [facility] 05-12-2023 17:40-0500 Body mass index (BMI) [Ratio] 28.29 kg/m2 Rachele Yo Other [facility] 05-12-2023 17:40-0500 Body temperature 98 [degF] Rachele Ram Other [facility] 05-12-2023 17:40-0500 Body weight 77.11 kg Rachele Yo Other [facility] 05-12-2023 17:40-0500 Respiratory rate 18 /min Rachele Ram Other [facility] 05-12-2023 17:40-0500 SaO2% (BldA) [Mass fraction] 97 % Rachele Ram Other [facility] 04-06-2019 20:42-0500 BMI (Body Mass Index) 28.06 kg/m2 Adilene Chu [facility] Work Phone: 04-06-2019 20:42-0500 Body Temperature 98.3 [degF] Adilene Chu [facility] Work Phone: 04-06-2019 20:42-0500 Body weight 76.48 kg Adilene Chu [facility] Work Phone: 04-06-2019 20:42-0500 BP Diastolic 64 mm[Hg] Adilene Chu [facility] Work Phone: 04-06-2019 20:42-0500 BP Systolic 110 mm[Hg] Adilene Chu [facility] Work Phone: 04-06-2019 20:42-0500 BSA (Body Surface Area) 1.84 m2 Adilene Chu [facility] Work Phone: 04-06-2019 20:42-0500 Height 165.1 cm Adilene Chu [facility] Work Phone: 04-06-2019 20:42-0500 Pulse (Heart Rate) 73 /min Adilene Chu [facility] Work Phone: 04-06-2019 20:42-0500 Pulse Oximetry 97 % Adilene Chu [facility] Work Phone: 04-06-2019 20:42-0500 4 1 Adilene Chu [facility] Work Phone: Comment on above: Pain Scale Encounters Encounter Date Encounter Type Care Provider Facility Start: 07-23-2024 End: 07-23-2024 Patient encounter procedure Young Suha DO Work Phone: [facility] Start: 07-23-2024 End: 07-23-2024 Periodic preventive med est patient 40-64yrs Young Suha DO Work Phone: [facility] Comment on above: Well woman exam with routine gynecological exam; Encounter for screening mammogram for malignant neoplasm of breast Start: 07-23-2024 End: 07-23-2024 Bamboo flowsheet Young Suha DO Work Phone: [facility] Start: 07-23-2024 End: 07-23-2024 Bamboo flowsheet Young Suha DO Work Phone: [facility] Start: 07-19-2024 End: 07-19-2024 [facility] Start: 07-13-2024 End: 07-13-2024 [facility] Start: 10-17-2023 End: 06-25-2024 ambulatory [place] Start: 07-07-2023 End: 07-07-2023 ambulatory YOUNG GUZMÁNO Not Available Start: 06-13-2023 Chart abstracting Young Borden DO Work Phone: [facility] Start: 06-03-2023 End: 06-03-2023 ambulatory Rachele Ram Facility:[facility] Start: 06-03-2023 End: 06-03-2023 Patient encounter procedure [facility] Work Phone: Start: 06-03-2023 End: 06-03-2023 ambulatory NON STAFF [facility] Work Phone: Start: 06-03-2023 Office outpatient vi sit 15 minutes Rachele Ram [facility] Start: 05-30-2023 End: 05-30-2023 ambulatory ARMEN GARCIA Not Available Start: 05-26-2023 End: 05-26-2023 ambulatory YOUNG GUZMÁNO Not Available Start: 05-24-2023 End: 05-25-2023 ambulatory ALYSSA YOSEF Not Available Start: 05-12-2023 End: 05-12-2023 ambulatory Rachele Ram Other [place] Other Start: 05-12-2023 Office outpatient ne w 30 minutes Rachele Ram [facility] Start: 05-12-2023 End: 05-12-2023 Patient encounter procedure [facility] Work Phone: Start: 05-28-2022 Encounter for preprocedural laboratory examination DR YOUNG BORDEN [facility] Start: 05-28-2022 End: 05-28-2022 ambulatory [facility] Facility:[facility] Start: 05-26-2022 End: 05-27-2022 ambulatory [facility] Facility:[facility] Start: 05-26-2022 End: 05-27-2022 Encounter for preprocedural laboratory examination [facility] Facility:[facility] Start: 05-24-2022 Encounter for other preprocedural examination DR YOUNG BORDEN [facility] Start: 05-18-2022 End: 05-19-2022 ambulatory [facility] Facility:[facility]1 Start: 05-18-2022 End: 05-19-2022 Encounter for other preprocedural examination [facility] Facility:[facility] Start: 01-23-2022 End: 01-23-2022 [facility] Facility: Start: 01-17-2022 End: 01-17-2022 [facility] Facility: Procedures Date Procedure Procedure Detail Performing Clinician Start: 07-11-2023 Mammography Young melgoza DO Work Phone: Start: 07-07-2023 Microscopic observat ion [Identifier] in Cervix by Cyto stain Young Borden DO Work Phone: Start: 06-03-2023 Plain X-ray of right hand Start: 06-25-2019 Microscopic observat ion [Identifier] in Cervix by Cyto stain Young Borden DO Work Phone: Start: 04-06-2019 Follow-up visit Plan of Treatment Date Care Activity Detail Author Start: 07-06-2026 Screening for malignant neoplasm of cervix Pap Smear [facility] Start: 07-23-2024 End: 07-23-2024 Patient encounter procedure 07/23/2024 2:40 PM EDT Office Visit [facility] [address] [id number] Young Borden, DO [address] [place] [address] Arrived [facility] Comment on above: Arrived Start: 07-23-2024 End: 09-22-2025 MG Breast - bilateral Screening Bilateral screening mammogram Imaging Routine Encounter for screening mammogram for malignant neoplasm of breast Expected: 07/23/2024 (Approximate), Expires: 09/22/2025 [facility] Work Phone: Comment on above: Expected: 07/23/2024 (Approximate), Expires: 09/22/2025 Start: 07-10-2024 Screening for malignant neoplasm of breast Mammogram [facility] Start: 06-25-2024 Screening for malignant neoplasm of cervix [facility] Start: 01-01-2024 Influenza vaccination Influenza Vacc ine (#1) [facility] Start: 07-07-2023 End: 07-07-2023 Patient encounter procedure 07/07/2023 10:00 AM EST Office Visit [facility] [address] [place] [id number] Young Borden, [address] [place] [address] [facility] Start: 2023 Screening for malignant neoplasm of breast Mammogram [facility] Start: 12-31-2022 Influenza vaccination Influenza Vacc ine (#1) [facility] THIN PREP TIS PAP AN D HR HPV DNA THIN PREP TIS PAP AND HR HPV DNA Pathology and Cytology Routine Well woman exam with routine gynecological exam Ordered: 07/23/2024 [facility] Comment on above: Ordered: 07/23/2024 Payers Date Payer Category Payer Self-pay [id number] 2022 Private Health Insurance [employer] [id number] 2022 Unknown [id number] 2022 Unknown [employer] [place] [employer] [facility] [id number] 2022-Present [phone] [address] [place] [id number] 1985 Unknown [id number] [id number]. 2.593 1983 Unknown [id number] 2.16.840.1.198529.3.579. 2.593 1983 Unknown [id number] 2.16.840.1.321137.3.579. 2.593 1983 Unknown [id number] 2.16.840.1.708523.3.579. 2.593 1983 Unknown [id number] 2.16.840.1.649226.3.579. 2.593 1983 Unknown [id number] 2.16.840.1.936119.3.579. 2.1259 1983 Unknown [id number] 2.16.840.1.322740.3.579. 2.1259 1983 Unknown [id number] 2.16.840.1.826062.3.579. 2.1259 1983 Unknown [id number] 2.16.840.1.836376.3.579. 2.1259 1983 Unknown [id number] 2.16.840.1.507162.3.579. 2.1286 1983 Unknown [id number] [id number]. 2.1286 1961 Self-pay [id number] Unknown [place] BC/BS [id number] Unknown [id number] [id number]. 2.531 Social History Date Type Detail Facility Start: 06-13-2023 Sex Assigned At [facility] Other Start: 09-05-2019 Tobacco smoking status TNIS Current some day smoker [facility] Start: 1985 Sex Assigned At Female [facility] Start: 06-13-2023 Tobacco smoking status NHIS Never smoked tobacco [facility] Start: 06-13-2023 End: 07-07-2023 Alcohol intake Current drinker of alcohol (finding) [facility] Start: 06-13-2023 Alcohol Comment caffeine: 1-2 cups per day [facility] Start: 1985 Sex Assigned At Not on file [facility] Start: 06-13-2023 History of Social function [facility] NEGATED: [facility] - - [facility] Work Phone: Functional Status Date Assessment Result Facility NEGATED: [facility] Functional performance Functional status health issues are not documented Disease [facility] Work Phone: Mental Status Date Assessment Result Facility NEGATED: [facility] Cognitive function [Interpretation] Cognitive status health issues are not documented Disease [facility] Work Phone: History of Present illness Narrative 07-23-2024 STEPHY Cooper - 07/23/2024 2:40 PM EDT Note Date & Type Note Facility 07-23-2024 History of Presen t illness Narrative Reason for Appointment: Patient ID: Santos Howe is a 39 y.o. female who presents for Well Women Visit Patient presents today for Annual Exam. MEDICATIONS Current Outpatient Medications Medication Instructions ARIPiprazole (Abilify) 5 MG tablet 1 tablet Orally BED TIME for 90 days busPIRone (BUSPAR) 10 mg, Oral, 2 times daily docusate sodium (Colace) 100 MG capsule Every 24 hours DULoxetine (Cymbalta) [address] capsule Every 24 hours Ferrous Sulfate (iron) 90 (18 Fe) MG tablet Every 24 hours glycopyrrolate (Robinul) 1 MG tablet Oral, 2 times daily hydrOXYzine pamoate (Vistaril) 25 MG capsule Every 24 hours lamoTRIgine (LaMICtal) 25 MG tablet TAKE ONE TABLET BY MOUTH EVERY MORNING Orally morning for 90 days Lutein (KP Lutein) 6 MG capsule Oral omega-3 acid ethyl esters (Lovaza) 1 g capsule Every 12 hours tobramycin (Tobrex) 0.3 % ophthalmic solution vilazodone (Viibryd) 10 mg tablet Every 24 hours ALLERGIES Allergies Allergen Reactions Sulfamethoxazole Rash Sulfamethoxazole-Trimethoprim Rash Anti-infective agents Trimethoprim Rash PROBLEMS Active Ambulatory Problems Diagnosis Date Noted No Active Ambulatory Problems Resolved Ambulatory Problems Diagnosis Date Noted No Resolved Ambulatory Problems Past Medical History: Diagnosis Date Depression (CMS/HCC) Hemorrhoids Pap smear for cervical cancer screening 06/25/2019 Uterine prolapse HISTORY PAST MEDICAL HISTORY SOCIAL HISTORY Past Medical History: Diagnosis Date Depression (CMS/HCC) Hemorrhoids Pap smear for cervical cancer screening 06/25/2019 neg Uterine prolapse Social History Tobacco Use Smoking status: Never Smokeless tobacco: Not on file Substance Use Topics Alcohol use: Yes Comment: caffeine: 1-2 cups per day Drug use: Not on file FAMILY HISTORY Family History Problem Relation Name Age of Onset Alcohol abuse Father Diabetes Other SURGICAL HISTORY Past Surgical History: Procedure Laterality Date HYSTERECTOMY with bilateral salpingectomy NASAL RECONSTRUCTION cartilage repair REVIEW OF SYSTEMS Review of Systems: Review of Systems Constitutional: Negative. HENT: Negative. Eyes: Negative. Respiratory: Negative. Cardiovascular: Negative. Gastrointestinal: Negative. Genitourinary: Negative. Musculoskeletal: Negative. Skin: Negative. Neurological: Negative. All other systems reviewed and are negative. Hematological: Negative. Endocrine: Negative. Allergic/Immunologic: Negative. OBJECTIVE Objective: Physical Exam Constitutional: Appearance: Normal appearance. Genitourinary: Perineal sutures intact. Right Adnexa: not tender and no mass present. Left Adnexa: not tender and no mass present. Cervix is absent. Uterus is absent. Breasts: Breasts are soft. Right: Normal. Left: Normal. HENT: Head: Normocephalic. Nose: Nose normal. Mouth/Throat: Mouth: Mucous membranes are moist. Cardiovascular: Rate and Rhythm: Normal rate. Pulmonary: Effort: Pulmonary effort is normal. Abdominal: General: Bowel sounds are normal. Palpations: Abdomen is soft. Musculoskeletal: General: Normal range of motion. Cervical back: Normal range of motion. Neurological: General: No focal deficit present. Mental Status: She is alert. Skin: General: Skin is warm and dry. Psychiatric: Mood and Affect: Mood normal. Vitals and nursing note reviewed. Exam conducted with a retail client solutions analyst present. Vitals: Estimated body mass index is 31.7 kg/m as calculated from the following: Height as of 07/13/22: 5' 6 . Weight as of this encounter: 196 lb 6.4 oz. BP: 104/70 No LMP recorded (lmp unknown). Patient has had a hysterectomy. ASSESSMENT & PLAN ICD-10-CM 1. Well woman exam with routine gynecological exam Z01.419 THIN PREP TIS PAP AND HR HPV DNA 2. Encounter for screening mammogram for malignant neoplasm of breast Z12.31 Bilateral screening mammogram Bilateral screening mammogram Return OB: Patient presents today for a routine obstetrics appointment. Patient is currently Unknown . Patient states she is doing well but has complaints of being tired due to current . Patient has verbalizes frequent movement. labor precautions was discussed/given and patient was instructed to perform kick counts three times a day. Orders Placed This Encounter Procedures Bilateral screening mammogram Follow Up: Patient is to return to office in 2 week for routine OB appointment. Documented by STEPHY Cooper on behalf of: Young Borden DO documented in this encounter [facility] Evaluation note 06-03-2023 Note Date & Type [...] Hand fracture home care material was printed [facility] Other Evaluation note 05-12-2023 Note Date & [...] understanding and is agreeable to treatment plan [facility] Other History general Narrative - Reported 2023 Note Date & Type Note Facility 2023 History general N arrative - Reported Type Medical History chronic depression Surgical History nasal reconstruction Surgical History cholecystectomy 04/2023 Surgical History hysterectomy 05/2022 Hospitalization History See Above [facility] Other History general Narrative - Reported 2023 Note Date & Type Note Facility 2023 History general N arrative - Reported Type Medical History chronic depression Surgical History nasal reconstruction Surgical History cholecystectomy 04/2023 Surgical History hysterectomy 05/2022 Hospitalization History 3 child births [facility] Other Clinical Note 05-28-2022 Note Date & Type Note Facility 05-28-2022 Note OPERATIVE NOTE OPERATION DATE: 05/28/2022 PROCEDURE: vNOTES assisted laparoscopic hysterectomy with bilateral salpingectomy with cystoscopy. PREOPERATIVE DIAGNOSIS: Menorrhagia, dysmenorrhea. POSTOPERATIVE DIAGNOSIS: Menorrhagia, dysmenorrhea. ANESTHESIA: General. SURGEON: Young Borden D.O. MANAGER OF COMMUNITY RELATIONS: PATO Astorga URINE OUTPUT: Yellow and clear. [...] Sponge, lap, needle counts correct x2. [facility] Evaluation note Note Date & Type Note Facility [facility]: Evaluation note Note Date & Type Note Facility Evaluation note Diagnosis Well woman exam with routine gynecological exam Routine gynecological examination Encounter for screening mammogram for malignant neoplasm of breast documented in this encounter [facility] Summary Purpose Family History Mother Name Dates [...] section and content) DATE CREATED AUTHOR 04/07/2019 [email or web address] DATE CREATED AUTHOR AUTHOR'S ORGANIZ ATION 04/09/2019 [facility] DATE CREATED AUTHOR AUTHOR'S ORGANIZ ATION 06/01/2022 [facility] DATE CREATED AUTHOR AUTHOR'S ORGANIZ ATION 06/10/2023 [facility] DATE CREATED AUTHOR AUTHOR'S ORGANIZ ATION 07/08/2023 [facility] DATE CREATED AUTHOR AUTHOR'S ORGANIZ ATION 06/26/2024 [facility] DATE CREATED AUTHOR AUTHOR'S ORGANIZ ATION 07/21/2024 [facility] REASON FOR VISIT (unrecogniz ed section and content) Reason Comments Well Women Visit Care Teams (unrecognized sec tion and content) [...] June 03, 2023 End: June 03, 2023 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 [employer] provides no warranty or guarantee of the accuracy or completeness of information in this document.
== END 2024-07-23 18:10 | disposition home or self-care (01) ==
LOC: LAB 18:09
PROVIDERS: Visit Provider Obstetrics & Gynecology
DX: Z01.419 Encounter for gynecological examination (general) (routine) without abnormal findings (principal)
CPT/HCPCS: 87624; 88175

== ENCOUNTER 2024-07-26 09:19 | Outpatient (OUT) | payer OTHER, SELFPAY ==
--- NOTE | 2024-07-26 09:21 | MM_ITS ---
Patient Name: SANTOS JONES MR#: [id number] : 1985 Exam Date: 07/26/2024 Ordering Doctor: DR Junior Borden . RADIOLOGY REPORT PROCEDURE: MM TOMOSYNTHESIS SCREENING BI COMPARISON: MM TOMOSYNTHESIS SCREENING BI, 07/11/2023. INDICATIONS: Screening Calculator Name NCI Breast Cancer Risk Assessment Tool 5 Year Breast Cancer Risk 0.50% Lifetime Breast Cancer Risk 9.00% Personal Breast Cancer No Personal Ovarian Cancer No Treatments None Family Cancers Mother with lymphoma cancer at age 64. LOCATION: [facility] BREAST COMPOSITION: There are scattered areas of fibroglandular density. FINDINGS: RIGHT BREAST: No significant suspicious finding. LEFT BREAST: No significant suspicious finding. DIAGNOSTIC CATEGORY 1--NEGATIVE. RECOMMENDATIONS: ROUTINE MAMMOGRAM AND CLINICAL EVALUATION IN 12 MONTHS. PLEASE NOTE: A NORMAL MAMMOGRAM DOES NOT EXCLUDE THE POSSIBILITY OF BREAST CANCER. A CLINICALLY SUSPICIOUS PALPABLE LUMP SHOULD BE BIOPSIED. Dictated by: Mark Clarke DO on 07/26/2024 at 14:39 Approved by: Mark Clarke DO on 07/26/2024 at 14:46
--- OUTSIDE RECORDS SUMMARY | 2024-07-26 09:33 | XMS_ITS | CCD ---
Author Organization [facility] Care Team Providers Care Technology Strategist Name Role Phone Adilene Chu Unavailable Unavailable Unknown, Referring Provider Unavailable Unav ailable [facility] Unava ilable SUHA, DR VIDAL Attending Unavailable SUHA, DR VIDAL Consulting Unavailable SUHA, DR VIDAL Admitting Unavailable TROY II, PROMISE Consulting Unavailable FILUTZEMAUREENCLARA Consulting Unavailable [facility] Unava ilable AMBER, DR VAL Kruger Admitting Unavailable AMBER, DR VAL Kruger Attending Unavailable AMBER, DR VAL Kruger Consulting Unavailable [facility] Unava ilable SUHA, DR VIDLA Attending Unavailable SUHA, DR VIDAL Admitting Unavailable [facility] Unava ilable SUHA, DR VIDAL Attending Unavailable SUHA, DR VIDAL Consulting Unavailable SUHA, DR VIDAL Admitting Unavailable [facility] Unava ilable SUHA, DR VIDAL Attending Unavailable DELPHOS, DR DEZ Beal Consulting Unavailable SUHA, DR VIDAL Admitting Unavailable SUHA, DR VIDAL Consulting Unavailable Rachele Ram Unavailable NON STAFF Primary Care Provider UnavailRASHEEDA Worrell Attending Provider Rachele Ram Attending Unavailable Rachele Ram Admitting Unavailable NON STAFF Primary Care Unavailable Unavailable Primary Care Provider UnavailAJYRO Brown Referring Unavailable DOUGLAS, JAYRO Primary Care Unavailable JAYRO COLE Referring Unavailable DOUGLAS, JAYRO Primary Care Unavailable Carli Abbasi MD Primary Care Provider [phone] YOUNG BORDEN Attending Unavailable Allergies Allergy Classification Reported Allergen(s) Allergy Type Date of Onset Reaction(s) Facility (1 source) Sulfamethoxazole / Trimethoprim Drug Allergy 8 [facility] (6 sources) Sulfamethoxazole / Trimethoprim Drug Allergy 0 [facility] (6 sources) Sulfamethoxazole; Translations: [sulfamethoxazole] Drug Allergy 0 [facility] (6 sources) Trimethoprim; Translations: [trimethoprim] Drug Allergy 0 [facility] (1 source) Sulfamethoxazole / Trimethoprim; Translations: [...] capsule Oral Active omega-3 acid ethyl esters (fci) 1000 mg oral capsule (2 sources) Start: 07-13-19 omega-3 acid ethyl esters (Lovaza) 1 g capsule every 12 (twelve) hours 07/12/2024 Active tobramycin 3 mg/ml ophthalmic solution (4 sources) Aminoglycoside Antibacterial Start: 07-11-19 tobramycin (Tobrex) 0.3 % ophthalmic solution 07/10/2022 [...] daily Venlafaxine Active 75 MG PO Daily 30 September 06, 2019 11:00pm vilazodone hydrochloride 10 [...] DAILY UNTIL FINISHED. Quantity: 14 Refills: 0 Adliene Chu PA-C Start : 06-Apr-2019 Active Problems [...] 07-13-2024 Episodic Other aftercare (1 source) Other correction (current) drug therapy; Translations: [OTH PENITENTIARY CURRENT DRUG THERAPY] Onset: 06-01-2022 Episodic Other [...] 3V*on 024 XR hand RT min 3V* [facility] Main [place] [address] [place] [address] XRay Report Signed Patient: Santos Howe MR#: [id number] : 1985 Acct:[id number] Age/Sex: 38 / F ADM Date: 06/03/23 Loc: XDUCLY Room: Type: [facility] Attending Dr: Rachele Ram APRN [...] Mark Clarke M.D.06/03/2023 2:57 PM Dictation Location: [facility]- Transcribed By: [facility] 06/03/23 1457 Dictated By: Mark Clarke DO 06/03/23 1451 Signed By: 06/03/23 [address] [facility] XR hand RT min 3V* [facility] Other XR hand RT min 3V* [facility] Other XR hand RT min 3V* [address] [place] [address] [facility] Other XR hand RT min 3V* [place] [address] [facility] Other XR hand RT min 3V* XRay Report [facility] Other XR hand RT min 3V* Signed [facility] Other XR hand RT min 3V* Patient: Santos Howe MR#: [id number] [facility] Other XR hand RT min 3V* [address] [facility] Other XR hand RT min 3V* : 1985 Acct:[id number] [facility] Other XR hand RT min 3V* Age/Sex: 38 / F ADM Date: 06/03/23 [facility] Other XR hand RT min 3V* Loc: XDUCLY Room: Type: [facility] Other XR hand RT min 3V* Attending Dr: Rachele Ram APRN [facility] Other XR hand RT min 3V* Copies to: Rachele Ram APRN [facility] Other XR hand RT min 3V* Ordering Provider: Rachele Ram APRN [facility] Other XR hand RT min 3V* Date of Service: 06/03/23 [facility] Other XR hand RT min 3V* XR/XR hand RT min 3V*: Injury [facility] Other XR hand RT min 3V* 4 views right hand plain film [facility] Other XR hand RT min 3V* COMPARISON: None [facility] Other XR hand RT min 3V* HISTORY: Fell 3 days ago. Bruising and swelling over the first through third metacarpals. History [facility] Other XR hand RT min 3V* of right hand fracture. [facility] Other XR hand RT min 3V* ACUTE FINDINGS: Cortical irregularity involving the dorsal distal aspect of the distal carpal bones [facility] Other XR hand RT min 3V* identified. Correlate with site of pain. This may correlate with the old fracture. [facility] Other XR hand RT min 3V* DEGENERATIVE CHANGE: Unremarkable [facility] Other XR hand RT min 3V* SOFT TISSUE FINDINGS: Unremarkable [facility] Other XR hand RT min 3V* JOINT EFFUSION: None [facility] Other XR hand RT min 3V* POSTOP CHANGES: None [facility] Other XR hand RT min 3V* BONY MINERALIZATION: Adequate [facility] Other XR hand RT min 3V* XR/XR hand RT min 3V* [facility] Other XR hand RT min 3V* IMPRESSION: Indeterminate age fracture of the distal dorsal aspect of the distal carpal bones. [facility] Other XR hand RT min 3V* Impression dictated by: Mark Clarke M.D.06/03/2023 2:57 PM [facility] Other XR hand RT min 3V* Dictation Location: [place] [address] [facility] Other XR hand RT min 3V* Transcribed By: PWS 06/03/23 [facility] Other XR hand RT min 3V* Dictated By: Mark Clarke DO 06/03/23 [facility] Other XR hand RT min 3V* Signed By: [facility] Other XR hand RT min 3V* 06/03/[address] [place] [address] [facility] Other BUN[facility] 05-28-2022 Urea nitrogen [Mass/Vol] 15.0 mg/dL Normal 7.0-18.0 [place] [facility] Comment on above: Performed By: #### B ELSI GABRIEL #### [facility] [address] [place] [address] Dr. Lucero Higuera CBC AUTO DIFFon 05-28-2022 BASO # 0.0 103/ul Normal 0.0-0.1 [facility] Comment on above: Performed By: #### C BC #### [facility] [address] [place] [address] Dr. Lucero Higuera Basophils/100 WBC (Bld) 0.2 % Normal 0.2-2.0 [facility] Comment on above: Performed By: #### C BC #### [facility] [address] [place] [address] Dr. Lucero Higuera EO # 0.0 103/ul Normal 0.0-0.7 [facility] Comment on above: Performed By: #### C BC #### [facility] [address] [place] [address] Dr. Lucero Higuera Eosinophils/100 WBC (Bld) 0.0 % Critically low 0.9-7.0 [facility] Comment on above: Performed By: #### C BC #### [facility] [address] [address] [address] Lucero Higuera Erythrocyte distribution width (RBC) [Ratio] 13.4 % Normal 11.0-15.0 [facility] Comment on above: Performed By: #### C BC #### [facility] [address] [address] [address] Lucero Higuera Hematocrit (Bld) [Volume fraction] 32.1 % Critically low 36.0-48.0 [facility] Comment on above: Performed By: #### C BC #### [facility] [address] [place] [address] Dr. Lucero Higuera Hemoglobin (Bld) [Mass/Vol] 11.9 g/dL Critically low 12.0-16.0 [facility] Comment on above: Performed By: #### C BC #### [facility] [address] [address] [address] Lucero Higuera IG # 0.04 10e3/ul Critically high 0.00-0.03 [facility] Comment on above: Performed By: #### C BC #### [facility] [address] [place] [address] Dr. Lucero Higuera IG % 0.3 % Normal 0.0-0.5 [facility] Comment on above: Performed By: #### C BC #### [facility] [address] [address] [address] Lucero Higuera LYMPH # 0.8 103/ul Critically low 1.2-3.8 [facility] Comment on above: Performed By: #### C BC #### [facility] [address] [address] [address] Lucero Higuera Lymphocytes/100 WBC (Bld) 6.1 % Critically low 20.5-60.0 [facility] Comment on above: Performed By: #### C BC #### [facility] [address] [place] [address] Dr. Lucero Higuera MANUAL DIFF REQ NO Normal [facility] Comment on above: Performed By: #### C BC #### [facility] [address] [place] [address] Dr. Lucero Higuera MCH (RBC) [Entitic mass] 30.4 pg Normal 26.7-34.0 [facility] Comment on above: Performed By: #### C BC #### [facility] [address] [place] [address] Dr. Lucero Higuera MCHC (RBC) [Mass/Vol] 37.1 g/dL Critically high 29.9-35.2 [facility] Comment on above: Performed By: #### C BC #### [facility] [address] [place] [address] Dr. Lucero Higuera MCV (RBC) [Entitic vol] 82.1 fL Normal 81.0-99.0 [facility] Comment on above: Performed By: #### C BC #### [facility] [address] [place] [address] Dr. Lucero Higuera MONO # 0.2 103/ul Critically low 0.3-0.8 [facility] Comment on above: Performed By: #### C BC #### [facility] [address] [place] [address] Dr. Lucero Higuera Monocytes/100 WBC (Bld) 1.8 % Normal 1.7-12.0 [facility] Comment on above: Performed By: #### C BC #### [facility] [address] [place] [address] Dr. Lucero Higuera NEUT # 12.1 103/ul Critically high 1.4-6.5 [facility] Comment on above: Performed By: #### C BC #### [facility] [address] [place] [address] Dr. Lucero Higuera Neutrophils/100 WBC (Bld) 91.6 % Critically high 43.0-75.0 [facility] Comment on above: Performed By: #### C BC #### [facility] [address] [place] [address] Dr. Lucero Higuera Platelet mean volume (Bld) [Entitic vol] 9.0 fL Critically low 9.5-13.5 [facility] Comment on above: Performed By: #### C BC #### [facility] [address] [place] [address] Dr. Lucero Higuera PLT 308 103/ul Normal 150-450 [facility] Comment on above: Performed By: #### C BC #### [facility] [address] [place] [address] Dr. Lucero Higuera RBC 3.91 106/ul Critically low 4.20-5.40 [facility] Comment on above: Performed By: #### C BC #### [facility] [address] [place] [address] Dr. Lucero Higuera WBC 13.2 103/ul Critically high 4.0-11.0 [facility] Comment on above: Performed By: #### C BC #### [facility] [address] [place] [address] Dr. Lucero Higuera BASO # 0.1 103/ul Normal 0.0-0.1 [facility] Comment on above: Performed By: #### C BC #### [facility] [address] [place] [address] Dr. Lucero Higuera Basophils/100 WBC (Bld) 0.5 % Normal 0.2-2.0 [facility] Comment on above: Performed By: #### C BC #### [facility] [address] [place] [address] Dr. Lucero Higuera EO # 0.4 103/ul Normal 0.0-0.7 [facility] Comment on above: Performed By: #### C BC #### [facility] [address] [place] [address] Dr. Lucero Higuera Eosinophils/100 WBC (Bld) 3.8 % Normal 0.9-7.0 [facility] Comment on above: Performed By: #### C BC #### [facility] [address] [place] [address] Dr. Lucero Higuera Erythrocyte distribution width (RBC) [Ratio] 14.3 % Normal 11.0-15.0 [facility] Comment on above: Performed By: #### C BC #### [facility] [address] [place] [address] Dr. Lucero Higuera Hematocrit (Bld) [Volume fraction] 43.1 % Normal 36.0-48.0 [facility] Comment on above: Performed By: #### C BC #### [facility] [address] [place] [address] Dr. Lucero Higuera Hemoglobin (Bld) [Mass/Vol] 13.0 g/dL Normal 12.0-16.0 [facility] Comment on above: Performed By: #### C BC #### [facility] [address] [place] [address] Dr. Lucero Higuera IG # 0.04 10e3/ul Critically high 0.00-0.03 [facility] Comment on above: Performed By: #### C BC #### [facility] [address] [place] [address] Dr. Lucero Higuera IG % 0.3 % Normal 0.0-0.5 [facility] Comment on above: Performed By: #### C BC #### [facility] [address] [place] [address] Dr. Lucero Higuera LYMPH # 4.2 103/ul Critically high 1.2-3.8 [facility] Comment on above: Performed By: #### C BC #### [facility] [address] [place] [address] Dr. Lucero Higuera Lymphocytes/100 WBC (Bld) 36.3 % Normal 20.5-60.0 [facility] Comment on above: Performed By: #### C BC #### [facility] [address] [place] [address] Dr. Lucero Higuera MANUAL DIFF REQ NO Normal [facility] Comment on above: Performed By: #### C BC #### [facility] [address] [place] [address] Dr. Lucero Higuera MCH (RBC) [Entitic mass] 29.3 pg Normal 26.7-34.0 [facility] Comment on above: Performed By: #### C BC #### [facility] [address] [address] [address] Lucero Higuera MCHC (RBC) [Mass/Vol] 30.2 g/dL Normal 29.9-35.2 [facility] Comment on above: Performed By: #### C BC #### [facility] [address] [address] [address] Lucero Higuera MCV (RBC) [Entitic vol] 97.3 fL Normal 81.0-99.0 [facility] Comment on above: Performed By: #### C BC #### [facility] [address] [place] [address] Dr. Lucero Higuera MONO # 0.7 103/ul Normal 0.3-0.8 [facility] Comment on above: Performed By: #### C BC #### [facility] [address] [place] [address] Dr. Lucero Higuera Monocytes/100 WBC (Bld) 6.0 % Normal 1.7-12.0 [facility] Comment on above: Performed By: #### C BC #### [facility] [address] [place] [address] Dr. Lucero Higuera NEUT # 6.1 103/ul Normal 1.4-6.5 [facility] Comment on above: Performed By: #### C BC #### [facility] [address] [address] [address] Lucero Higuera Neutrophils/100 WBC (Bld) 53.1 % Normal 43.0-75.0 [facility] Comment on above: Performed By: #### C BC #### [facility] [address] [address] [address] Lucero Higuera Platelet mean volume (Bld) [Entitic vol] 9.3 fL Critically low 9.5-13.5 [facility] Comment on above: Performed By: #### C BC #### [facility] [address] [address] [address] Lucero Higuera PLT 369 103/ul Normal 150-450 [facility] Comment on above: Performed By: #### C BC #### [facility] [address] [address] [address] Lucero Higuera RBC 4.43 106/ul Normal 4.20-5.40 [facility] Comment on above: Performed By: #### C BC #### [facility] [address] [address] [address] Lucero Higuera WBC 11.4 103/ul Critically high 4.0-11.0 [facility] Comment on above: Performed By: #### C BC #### [facility] [address] [place] [address] Dr. Lucero Higuera CREATININEon 05-28-2022 Creatinine [Mass/Vol] 0.76 mg/dL Normal 0.55-1.02 [facility] Comment on above: Performed By: #### B UN, CREA #### [facility] [address] [place] [address] Dr. Lucero Higuera EGFR-AF SAMMARINESE >60 Normal >=60 [facility] Comment on above: Performed By: #### B UN, CREA #### [facility] [address] [place] [address] Dr. Lucero Higuera EGFR-NON AF SAMMARINESE >60 Normal >=60 [facility] Comment on above: Performed By: #### B UN, CREA #### [facility] [address] [place] [address] Dr. Lucero Higuera Covid-19 PCR (CVDTB)on 05-03 SARS-CoV-2 (COVID-19) RNA GISELL+probe Ql (Unsp spec) Not detected Normal NOT DETECTED [facility] Comment on above: Result Comment: This test is not yet approved or cleared by the [place] FDA. When there are no FDA-approved or cleared tests available, and other criteria are met, FDA can make tests available under an emergency access mechanism called an Emergency Use Authorization (EUA). The EUA for this test is supported by the [place] of Health and Human Service's (HHS's) declaration [...] SARS-CoV-2. Performed By: #### C VDTBH #### [facility] [address] [place] [address] Dr. Lucero Higuera PREG QUANT HCGon 05-26-2022 HCG QUANT <1 Normal [facility] Comment on above: Performed By: #### P REGQNT #### [facility] [address] [place] [address] Dr. Lucero Higuera HCG RANGE SEE BELOW Normal [facility] Comment on above: Result Comment: 5-50 0.2-1 WEEK 50-500 1-2 WEEKS 100-5,000 2-3 WEEKS 500-10,000 3-4 WEEKS 1,000-50,000 4-5 WEEKS 10,000-100,000 5-6 WEEKS 15,000-200,000 6-8 WEEKS 10,000-100,000 2-3 MONTHS Performed By: #### P REGQNT #### [facility] [address] [place] [address] Dr. Lucero Higuera TYPE AND SCREENon 05-26-2022 TYPE AND SCREEN Negative Normal [facility] Comment on above: Performed By: #### T NS #### [facility] [address] [place] [address] Dr. Lucero Higuera US PELVIS AND TRANSVAGon [...] DEZ RUANO Date: 2022-01-23 19:25 Normal [facility] Cult, Urineon 04-06-2019 Bacteria identified Cx Nom (U) PATIENT: SANTOS HOWE LOCATION: [facility] BILL#: [id number] : 81 AGE: SEX: F ORDERED BY: [...] NS=NONSUSCEPTIBLEX=R EPORTED IN ERROR ___ Abnormal [facility] Work Phone: Bacteria identified Cx Nom (U) PATIENT: SANTOS HOWE LOCATION: [id number] BILL#: [id number] : 81 AGE: SEX: F ORDERED BY: PATRIZIA CHU: URINE COLLECTED: 04/06/19 19:49ANTIBIOTICS AT [facility].: RECEIVED : 04/07/19 00:18SITE: Clean Catch/Voided R E S U L T S URINE CULTURE,BACTERIAL PRELIM 04/08/19 09:01 ISOLATE1 : Enteric bacilli >100,000 CFU/ML IDENTIFICATION AND/OR ANTIBIOTIC SUSCEPTIBILITY IN PROGRESS. Abnormal [facility] Work Phone: IO UA (automated w/o microsc opy)on 04-06-2019 Protein (U) [Mass/Vol] Negative Negative [facility] Work Phone: IO UA (automated w/o microscopy) Negative Negative [facility] Work Phone: IO UA (automated w/o microscopy) 1.010 1.000-1.030 [facility] Work Phone: IO UA (automated w/o microscopy) Yellow Colorless-[place] ow [facility] Work Phone: IO UA (automated w/o microscopy) 6.0 5.0-8.0 [facility] Work Phone: IO UA (automated w/o microscopy) Trace Negative [facility] Work Phone: IO UA (automated w/o microscopy) Normal (0.2-1.0 mg/dl) Normal [facility] Work Phone: IO UA (automated w/o microscopy) Positive Negative [facility] Work Phone: IO UA (automated w/o microscopy) (+)small - 15 Negative [facility] Work Phone: IO UA (automated w/o microscopy) Cloudy Clear [facility] Work Phone: URINE CULTURE,BACTERIALon URINE CULTURE,BACTERIAL PATIENT: SANTOS HOWE LOCATION: [facility] BILL#: [id number] : 81 AGE: SEX: F ORDERED BY: [...] DEPENDENT NS=NONSUSCEPTIBLE X=REPORTED IN ERROR Normal [facility] Comment on above: Performed By: #### U [facility] #### [facility] [address] [place] [address] Vital Signs Date Time Vital Sign Value Performing Clinician Facility 07-23-2024 15:04-0400 Body mass index (BMI) [Ratio] 31.7 kg/m2 Young Suha DO Work Phone: [facility] 07-23-2024 15:04-0400 Body weight 89.09 kg Young Suha DO Work Phone: [facility] 07-23-2024 15:04-0400 Diastolic blood pressure 70 mm[Hg] Young Suha DO Work Phone: [facility] 07-23-2024 15:04-0400 Systolic blood pressure 104 mm[Hg] Young Suha DO Work Phone: [facility] 06-03-2023 14:00-0500 Body height 165.1 cm Rachele Ram Other [facility] Other 06-03-2023 14:00-0500 Body mass index (BMI) [Ratio] 28.72 kg/m2 Rachele Ram Other [facility] Other 06-03-2023 14:00-0500 Body temperature 98 [degF] Rachele Ram Other [facility] Other 06-03-2023 14:00-0500 Body weight 78.29 kg Rachele Ram Other [facility] Other 06-03-2023 14:00-0500 Respiratory rate 18 /min Rachele Ram Other [facility] Other 06-03-2023 14:00-0500 SaO2% (BldA) [Mass fraction] 96 % Rachele Ram Other [facility] Other 05-12-2023 17:40-0500 Body height 165.1 cm Rachele Yo Other [facility] Other 05-12-2023 17:40-0500 Body mass index (BMI) [Ratio] 28.29 kg/m2 Rachele Yo Other [facility] Other 05-12-2023 17:40-0500 Body temperature 98 [degF] Rachele Yo Other [facility] Other 05-12-2023 17:40-0500 Body weight 77.11 kg Rachele Yo Other [facility] Other 05-12-2023 17:40-0500 Respiratory rate 18 /min Rachele Ram Other [facility] Other 05-12-2023 17:40-0500 SaO2% (BldA) [Mass fraction] 97 % Rachele Ram Other [facility] Other 04-06-2019 20:42-0500 BMI (Body Mass Index) 28.06 kg/m2 Adilene Chu [facility] Work Phone: 04-06-2019 20:42-0500 Body Temperature 98.3 [degF] Adilene Chu [facility] Work Phone: 04-06-2019 20:42-0500 Body weight 76.48 kg Adilene Chu [facility] Work Phone: 04-06-2019 20:42-0500 BP Diastolic 64 mm[Hg] Adilenecaro Chu [facility] Work Phone: 04-06-2019 20:42-0500 BP Systolic 110 mm[Hg] Adilenecaro Chu [facility] Work Phone: 04-06-2019 20:42-0500 BSA (Body Surface Area) 1.84 m2 Adilene Chu [facility] Work Phone: 04-06-2019 20:42-0500 Height 165.1 cm Adilene Chu [facility] Work Phone: 04-06-2019 20:42-0500 Pulse (Heart Rate) 73 /min Adilene Chu [facility] Work Phone: 04-06-2019 20:42-0500 Pulse Oximetry 97 % Adilene Chu [facility] Work Phone: 04-06-2019 20:42-0500 4 1 Adilene Chu [facility] Work Phone: Comment on above: Pain Scale Encounters Encounter Date Encounter Type Care Provider Facility Start: 07-23-2024 End: 07-23-2024 Patient encounter procedure Young Suha DO Work Phone: [facility] Start: 07-23-2024 End: 07-23-2024 Periodic preventive med est patient 40-64yrs Young Suha DO Work Phone: [facility] Comment on above: Well woman exam with routine gynecological exam; Encounter for screening mammogram for malignant neoplasm of breast Start: 07-23-2024 End: 07-23-2024 ambulatory YOUNG SUHA Not Available Start: 07-23-2024 End: 07-23-2024 Bamboo flowsheet Young Suha DO Work Phone: [facility] Start: 07-23-2024 End: 07-23-2024 Bamboo flowsheet Young Suha DO Work Phone: [facility] Start: 07-19-2024 End: 07-19-2024 [facility] Start: 07-13-2024 End: 07-13-2024 [facility] Start: 10-17-2023 End: 06-25-2024 ambulatory [facility] Start: 06-13-2023 Chart abstracting Young Borden DO Work Phone: [facility] Start: 06-03-2023 End: 06-03-2023 ambulatory Rachele L Ram Facility:[facility] Start: 06-03-2023 End: 06-03-2023 Patient encounter procedure [facility] Work Phone: Start: 06-03-2023 End: 06-03-2023 ambulatory NON STAFF [facility] Work Phone: Start: 06-03-2023 Office outpatient vi sit 15 minutes Rachele Ram [facility] Start: 05-12-2023 End: 05-12-2023 ambulatory Rachele Ram Other [facility] Start: 05-12-2023 Office outpatient ne w 30 minutes Rachele Ram [facility] Start: 05-12-2023 End: 05-12-2023 Patient encounter procedure [facility] Work Phone: Start: 05-28-2022 Encounter for preprocedural laboratory examination DR YOUNG BORDEN [facility] Start: 05-28-2022 End: 05-28-2022 Counts include 234 beds at the [facility] Facility:H1 Start: 05-26-2022 End: 05-27-2022 ambulatory [facility] Facility:H1 Start: 05-26-2022 End: 05-27-2022 Encounter for preprocedural laboratory examination [facility] Facility:H1 Start: 05-24-2022 Encounter for other preprocedural examination DR YOUNG BORDEN [facility] Start: 05-18-2022 End: 05-19-2022 Counts include 234 beds at the [facility] Facility:H1 Start: 05-18-2022 End: 05-19-2022 Encounter for other preprocedural examination [facility] Facility:H1 Start: 01-23-2022 End: 01-23-2022 Counts include 234 beds at the [facility] Facility:H1 Start: 01-17-2022 End: 01-17-2022 Counts include 234 beds at the [facility] Facility:H1 Procedures Date Procedure Procedure Detail Performing Clinician Start: 07-11-2023 Mammography Young Fazi o DO Work Phone: Start: 07-07-2023 Microscopic observat ion [Identifier] in Cervix by Cyto stain Young Suha DO Work Phone: Start: 06-03-2023 Plain X-ray of right hand Start: 06-25-2019 Microscopic observat ion [Identifier] in Cervix by Cyto stain Young Suha DO Work Phone: Start: 04-06-2019 Follow-up visit Plan of Treatment Date Care Activity Detail Author Start: 07-06-2026 Screening for malignant neoplasm of cervix Pap Smear [facility] Start: 07-23-2024 End: 07-23-2024 Patient encounter procedure 07/23/2024 2:40 PM EDT Office Visit [facility] [address] [facility] [place] [id number] Young Borden, DO [address] [place] [address] Dr Tyron Denis, [place] [address] Arrived [facility] Comment on above: Arrived Start: 07-23-2024 End: 09-22-2025 MG Breast - bilateral Screening Bilateral screening mammogram Imaging Routine Encounter for screening mammogram for malignant neoplasm of breast Expected: 07/23/2024 (Approximate), Expires: 09/22/2025 [facility] Work Phone: Comment on above: Expected: 07/23/2024 (Approximate), Expires: 09/22/2025 Start: 07-10-2024 Screening for malignant neoplasm of breast Mammogram [facility] Start: 06-25-2024 Screening for malignant neoplasm of cervix [facility] Start: 01-01-2024 Influenza vaccination Influenza Vacc ine (#1) [facility] Start: 07-07-2023 End: 07-07-2023 Patient encounter procedure 07/07/2023 10:00 AM EST Office Visit [facility] [address] [place] [address] Young Borden, DO [address] [place] [address] Dr [place]ron [place] [id number] [facility] Start: 2023 Screening for malignant neoplasm of breast Mammogram [facility] Start: 12-31-2022 Influenza vaccination Influenza Vacc ine (#1) [facility] THIN PREP TIS PAP AN D HR HPV DNA THIN PREP TIS PAP AND HR HPV DNA Pathology and Cytology Routine Well woman exam with routine gynecological exam Ordered: 07/23/2024 [facility] Comment on above: Ordered: 07/23/2024 Payers Date Payer Category Payer Self-pay [id number] 2022 Private Health Insurance [employer] [id number] 2022 Unknown [employer] [id number] 2022-Present [phone] [place] [id number] 2022 Unknown [id number] 1985 Unknown [id number] [id number]. 2.593 1983 Unknown [id number] 2.16.840.1.167908.3.579. 2.593 1983 Unknown [id number] 2.16.840.1.066121.3.579. 2.593 1983 Unknown [id number] 2.16.840.1.435287.3.579. 2.593 1983 Unknown [id number] 2.16.840.1.983883.3.579. 2.593 1983 Unknown [id number] 2.16.840.1.328474.3.579. 2.1286 1983 Unknown [id number] 2.16.840.1.052420.3.579. 2.1286 1983 Unknown [id number] 2.16.840.1.733705.3.579. 2.1259 1961 Self-pay [id number] Unknown [employer]/BS [id number] Unknown [id number] [id number]. 2.531 Social History Date Type Detail Facility Start: 06-13-2023 Sex Assigned At [facility] Start: 09-05-2019 Tobacco smoking status TNIS Current some day smoker [facility] Start: 1985 Sex Assigned At Female [facility] Start: 06-13-2023 Tobacco smoking status [facility] Never smoked tobacco [facility] Start: 06-13-2023 End: 07-07-2023 Alcohol intake Current drinker of alcohol (finding) [facility] Start: 06-13-2023 Alcohol Comment caffeine: 1-2 cups per day [facility] Start: 1985 Sex Assigned At Not on file [facility] Start: 06-13-2023 History of Social function [facility] NEGATED: Highlighted row - - [facility] Work Phone: Functional Status Date Assessment Result Facility NEGATED: Highlighted row Functional performance Functional status health issues are not documented Disease [facility] Work Phone: Mental Status Date Assessment Result Facility NEGATED: Highlighted row Cognitive function [Interpretation] Cognitive status health issues are not documented Disease [facility] Work Phone: History of Present illness Narrative [...] nursing note reviewed. Exam conducted with a apartment maintenance worker present. Vitals: Estimated body mass index is [...] Young Borden DO documented in this encounter [facility] Evaluation note 06-03-2023 Note Date & Type [...] Hand fracture home care material was printed [facility] Other Evaluation note 05-12-2023 Note Date & [...] understanding and is agreeable to treatment plan [facility] Other History general Narrative - Reported 2023 Note Date & Type Note Facility 2023 History general N arrative - Reported Type Medical History chronic depression Surgical History nasal reconstruction Surgical History cholecystectomy 04/2023 Surgical History hysterectomy 05/2022 Hospitalization History See Above [facility] Other History general Narrative - Reported 2023 Note Date & Type Note Facility 2023 History general N arrative - Reported Type Medical History chronic depression Surgical History nasal reconstruction Surgical History cholecystectomy 04/2023 Surgical History hysterectomy 05/2022 Hospitalization History 3 child births [facility] Other Clinical Note 05-28-2022 Note Date & Type Note Facility 05-28-2022 Note OPERATIVE NOTE OPERATION DATE: 05/28/2022 PROCEDURE: vNOTES assisted laparoscopic hysterectomy with bilateral salpingectomy with cystoscopy. PREOPERATIVE DIAGNOSIS: Menorrhagia, dysmenorrhea. POSTOPERATIVE DIAGNOSIS: Menorrhagia, dysmenorrhea. ANESTHESIA: General. SURGEON: Young Borden D.O. TODDLER NANNY: PATO Astorga URINE OUTPUT: Yellow and clear. [...] Sponge, lap, needle counts correct x2. [facility] Evaluation note Note Date & Type Note Facility Evaluation note No assessment information availa [facility] Work Phone: Evaluation note Note Date & Type Note Facility Evaluation note Diagnosis Well woman exam with routine gynecological exam Routine gynecological examination Encounter for screening mammogram for malignant neoplasm of breast documented in this encounter [facility] Summary Purpose Family History No Family History [...] section and content) DATE CREATED AUTHOR 04/07/2019 [employer] DATE CREATED AUTHOR AUTHOR'S ORGANIZ ATION 04/09/2019 [facility] DATE CREATED AUTHOR AUTHOR'S ORGANIZ ATION 06/01/[address] [facility] DATE CREATED AUTHOR AUTHOR'S ORGANIZ ATION 06/10/2023 [facility] DATE CREATED AUTHOR AUTHOR'S ORGANIZ ATION 06/26/2024 [facility] DATE CREATED AUTHOR AUTHOR'S ORGANIZ ATION 07/21/2024 [facility] DATE CREATED AUTHOR AUTHOR'S ORGANIZ ATION 07/24/2024 [facility] EPIC REASON FOR VISIT (unrecogniz [...] June 03, 2023 End: June 03, 2023 Technology Strategist Relationship Specialty Start Date End Date Carli Abbasi MD [address] [place] [address] PCP - General Pediatrics 07/23/24 Technology Strategist Relationship Specialty Start Date End Date Carli Abbasi MD [address] [place] [address] PCP - General Pediatrics 07/23/24 Goals (unrecognized [...] BE BASED ON THE PRIMARY CLINICAL RECORDS. [facility] [employer] [facility]. provides no warranty or guarantee of the accuracy or completeness of information in this document.
== END 2024-07-26 09:20 | disposition home or self-care (01) ==
LOC: MAMMO 09:19
PROVIDERS: Visit Provider Obstetrics & Gynecology
DX: Z12.31 Encounter for screening mammogram for malignant neoplasm of breast (principal); Z80.7 Family history of other malignant neoplasms of lymphoid, hematopoietic and related tissues
CPT/HCPCS: 77063; 77067

== ENCOUNTER 2025-01-11 08:01 | Outpatient (OUT) | payer OTHER, SELFPAY ==
--- OUTSIDE RECORDS SUMMARY | 2024-11-15 05:15 | XMS_ITS ---
Author Organization [facility] vices Address [address] [place], [place] [id number] Care Team Providers Care Glove Stitcher Name Role Phone John Higgins Primary Care Provider [phone] Shana Castro [phone] REASON FOR VISIT 4m hld Social History Sex Assigned At : Social History Observation Description Sex Assigned At Female Encounters Encounter Location Date Provider Diagnosis [address] [id number] 11/15 Shana Castro Plan Of Treatment Next Appt Details Provider Name:John Higgins, 01/31/2025 08:15:00 AM, [address] [place], [id number], Provider Name:Sonny Gan, 03/19/2025 11:00:00 AM, [address] [facility] [place], [id number], Progress Notes * Malena HOWEOB:[birth year] (39 yo F)Acc No.[id number]:11/15/2024 Medical Note Patient: Kaylie TORIBIO Provider: Michael Castro :1985 A ge:39 Y S ex:Female Date:11/15/2024 Address:[address] [place] , [id number] Pcp:John Higgins Subjective: * Chief Complaints: * 1 . 4m hld. * Medical History: Objective: * Vitals: Assessment: Plan: * Treatment: * Billing Information: * Visit Code: * Procedure Codes: * Electronic signature of GRAZYNA Broussard on 01/11/2025 at 08:03 AM EDT Sign off status: Pending * Provider: Michael Castro Date: 11/15/2024 Generated for Margie Zuniga on: 0 01/11/2025 08:03 AM EDT
--- OUTSIDE RECORDS SUMMARY | 2025-01-03 04:30 | XMS_ITS ---
Author Organization [facility] vices Address [address] [place], [place] [id number] Care Team Providers Care Nanny Babysitter Name Role Phone Ronaldo John Primary Care Provider [phone] Allergies Allergen (clinical drug ingredient) Drug/Non Drug Allergy documented on EMR Reaction Allergy Type Onset Date Status sulfamethoxazole / trimethoprim Bactrim Rash Drug Allergy Active REASON FOR VISIT HLD Medications Medication SIG (Take, Route, Frequency, Duration) Notes Start Date End Date Status Sertraline HCl 100 MG 1 tablet in the mo rning Orally Once a day; Duration: 90 days 10/15/2024 Active Atorvastatin Calcium 10 MG 1 tablet Oral ly Once a day; Duration: 30 day(s) 01/03/2025 Active hydrOXYzine Pamoate 25 MG 1-2 capsule at bedtime as needed Orally Once a day; Duration: 90 days As needed Active Glycopyrrolate 1 MG 1 tablet Orally Once a day Active lamoTRIgine 25 MG 2 TABLETS BY MOUTH E VERY MORNING Orally MORNING; Duration: 90 days Active ARIPiprazole 10 MG 1 tablet Orally BED TIME; Duration: 90 days Active Social History Sex Assigned At : Social History Observation Description Sex Assigned At Female Vital Signs Temperature 98.0 degrees Fahrenheit 01/04/20 25 Weight 204.1 lbs 01/03/2025 Height 65.00 in 01/03/2025 BMI 33.96 kg/m2 01/03/2025 Blood pressure systolic 120 mm Hg 01/04/20 25 Blood pressure diastolic 78 mm Hg 025 Heart Rate 91 /min 01/03/2025 Respiratory Rate 16 /min 01/03/2025 Oximetry 97 % 01/03/2025 Weight-kg 92.58 kg 01/03/2025 Height-cm 165.10 cm 01/03/2025 denies pain. Julia Calix 01/03/2025 08:39:19 AM EDT > Encounters Encounter Location Date Provider Diagnosis Main [address] [place] , [place] [id number] 01/03/2025 John Higgins Hyperlipidemia E78.5 and History of syncope Z87.898 Assessments Encounter Date Diagnosis (ICD Code) Assessment Notes Treatment Notes Treatment Clinical Notes Section Notes 01/03/2025 Hyperlipidemia (ICD-10 - E78.5) pt will star the 10mg atorvostatin at this tiem for the LDL of 194 there will be plan to increase to 20mg in 4 weeks after seeign if they can tolerate the statin therpay also discusseed with the patient that the BH meds maybe the cause of the increased LDL 01/03/2025 History of syncope (ICD-10 - Z87.898) due to this epidose and increased LDL i will order a stress test to be done pt will complete stress test and return to discuss results after completion pt will go to the Er with any new or worsening symptoms of but not limited to chest pain, shortness of breath, blurry vision, or headaches Plan Of Treatment Medication Medication Name Sig Start Date Stop Date Notes Atorvastatin Calcium 10 MG 1 tablet Oral ly Once a day; Duration: 30 day(s) 01/03/2025 Treatment Notes Assessment Notes Hyperlipidemia pt will star the 10mg atorvostatin at this tiem for the LDL of 194 there will be plan to increase to 20mg in 4 weeks after seeign if they can tolerate the statin therpay also discusseed with the patient that the BH meds maybe the cause of the increased LDL History of syncope due to this epidose and increased LDL i will order a stress test to be done pt will complete stress test and return to discuss results after completion pt will go to the Er with any new or worsening symptoms of but not limited to chest pain, shortness of breath, blurry vision, or headaches Pending Test Test Name Order Date Exercise Treadmill Stress Test (TMST) Next Appt Details Follow Up: 4 Weeks, Reason: ldl Provider Name:John Higgins, 01/31/2025 08:15:00 AM, [address] [place], [place], [id number], Provider Name:Sonny Gan, 03/19/2025 11:00:00 AM, [address] [place], [place], [id number], Progress Notes * Malena HOWEOB:[birth year] (39 yo F)Acc No.[id number]:01/03/2025 Medical Note Patient: Kaylie TORIBIO Provider: Sascha Higgins :1985 A ge:39 Y S ex:Female Date:01/03/2025 [place] [facility] Subjective: * Chief Complaints: * H LD * HPI: I nterim History: pt presents for HLD her recent labs showed an increase in her LDL to 191 she also recently started abilfy and lamotrigine she has never taken a statin. S yncope: Pt reports a singular syncopal epidote at some time in October at a concert she states this was while she was drinking and it was very hot she noticed she felt off went to then she went out briefly after she experienced a left arm pain she had an event monitor on about 6 months ago denies chest pain, arm pain, fatigue, headaches. * ROS: N egative except mentioned above in the HPI. * Medical History: * Surgical History: N ose surgery, COMMENTS: 1999 EXTENSIVE HYSTERECTOMY- partial 05/28/22cholecystectomy 04/2023 * Hospitalization/Major Diagno stic Procedure: s ee surgical hx * Family History: F ather: . M other: , diagnosed with Cancer. P aternal Grand Father: . P aternal Grand Mother: . M aternal Grand Father: . M aternal Grand Mother: alive. * Social History: P CMH and UDS Demographics: P [facility] Questions D o you have any barriers to learning? N one patient entered data W hat is your preferred method of learning??Reading patient entered data H ow often do you need to have someone help you read instructions? N ever patient entered data S exual History: F amily Planning A re you or your partner planning on becoming in the next year if not already ? N o W hat type of contraception are you using??Female Sterilization * Medications: T akingGlycopyrrolate 1 MG Tablet 1 tablet Orally Once a day lamoTRIgine 25 MG Tablet 2 TABLETS BY MOUTH EVERY MORNING Orally MORNING ARIPiprazole 10 MG Tablet 1 tablet Orally BED TIME hydrOXYzine Pamoate 25 MG Capsule 1-2 capsule at bedtime as needed Orally Once a day As neededSertraline HCl 100 MG Tablet 1 tablet in the morning Orally Once a day , Notes: dose increased 11/13/24Taking Glycopyrrolate 1 MG Tablet 1 tablet Orally Once a day Taking lamoTRIgine 25 MG Tablet 2 TABLETS BY MOUTH EVERY MORNING Orally MORNING Taking ARIPiprazole 10 MG Tablet 1 tablet Orally BED TIME Taking hydrOXYzine Pamoate 25 MG Capsule 1-2 capsule at bedtime as needed Orally Once a day As neededTaking Sertraline HCl 100 MG Tablet 1 tablet in the morning Orally Once a day , Notes: dose increased 11/13/[id number] Ethyl Esters 1 GM Capsule 2 capsules Orally Twice a day Albuterol Sulfate HFA 108 (90 Base) MCG/ACT Aerosol Solution Inhalation Medication List reviewed and reconciled with the patientDiscontinued [id number] Ethyl Esters 1 GM Capsule 2 capsules Orally Twice a day Discontinued Albuterol Sulfate HFA 108 (90 Base) MCG/ACT Aerosol Solution Inhalation Medication List reviewed and reconciled with the patient * Allergies: B actrim: Rash - Allergyno[Allergies Verified] Objective: * Vitals: T emp:98.0F, Wt:204.1lbs, Ht: 65.00 in, BMI:33.96Index, BP:120/78mm Hg, HR:91/min, RR:16/min, Pain scale:01-10, Oxygen sat %:97%, Wt-k.58 kg, Ht-cm: 165.10 cm, Body Surface Area: 2.06. denies pain.Julia Calix 01/03/2025 08:39:19 AM EDT > . * Examination: C QM Exceptions: Currently taking Aspirin: A spirin Use: N o G eneral Examination: General appearance: a lert, pleasant, well-nourished and in no acute distress. Head: n ormocephalic, atraumatic. Heart: r egular rate and rhythm without murmurs, gallops, clicks or rubs. Lungs: c lear to auscultation bilaterally, with good air movement and no rales, rhonchi or wheezes. Extremities: n ormal extremity with no clubbing, cyanosis or edema. Psych: a lert and oriented x 3. Assessment: * Assessment: 1. H yperlipidemia - E78.5 (Primary) 2 . H istory of syncope - Z87.898 Plan: * Treatment: 2. H istory of syncope I maging: Exercise Treadmill Stress Test (TMST) Notes: due to this epidose and increased LDL i will order a stress test to be done pt will complete stress test and return to discuss results after completion pt will go to the Er with any new or worsening symptoms of but not limited to chest pain, shortnessof breath, blurry vision, or headaches ?? * Procedure Codes: 3 078F HTN DIAST BP < 580577S HTN SYST BP < [id number] [facility] visit, established patient * Follow Up: 4 Weeks (Reason: ldl) * Billing Information: * Visit Code: 76513 Office Visit Est 30-39 minutes. * Procedure Codes: 3078F HTN DIAST BP < 80. 3074F HTN SYST BP < 130. G0467 [facility] visit, established patient. * Sign off status: Completed true * Provider: Sascha Higgins Date: 0 01/03/2025 Generated for Margie escobar/Tray/Tai on: 01/11/2025 08:03 AM EDT History and Physical Notes * HPI (History of Present Illness) Category Sub-Category Detail Notes Category Not es Syncope Pt reports a singular syncopal epidote at some time in October at a concert she states this was while she was drinking and it was very hot she noticed she felt off went to then she went out briefly after she experienced a left arm pain she had an event monitor on about 6 months ago denies chest pain, arm pain, fatigue, headaches Interim History pt presents for HLD her recent labs showed an increase in her LDL to 191 she also recently started abilfy and lamotrigine she has never taken a statin Examination Category Sub-Category Detail Notes Category Not es General Examination General appearance: alert, p leasant, well-nourished and in no acute distress Head: normocephalic, atrau matic Heart: regular rate and rhy thm without murmurs, gallops, clicks or rubs Lungs: clear to auscultatio n bilaterally, with good air movement and no rales, rhonchi or wheezes Extremities: normal extremity wit h no clubbing, cyanosis or edema Psych: alert and oriented x 3 CQM Exceptions Currently taking Aspirin: Aspirin Use:: No
--- OUTSIDE RECORDS SUMMARY | 2025-01-11 08:03 | XMS_ITS | Encounter Summary ---
Author Organization [facility] Address [address] [place] [address] Care Team Providers Care Research Program Manager Name Role Phone Carli Abbasi MD Primary Care Provider [phone] Encounter Details Date Type Department Care Team (Late st Contact Info) Description 07/11/2023 Clinisync Result Encounter [facility] External Department Unsolicited Young Borden, DO [address] [place], [place] [id number] Social History Tobacco Use Types Packs/Day Years Used Date Smoking Tobacco: Never Alcohol Use Standard Drinks/Week Comments Yes 0 (1 standard drink = 0.6 oz pur e alcohol) caffeine: 1-2 cups per day Comments No Sex and Gender Information Value Date Recorded Sex Assigned at Not on file Legal Sex Female 7:12 PM EDT Gender Identity Not on file Sexual Orientation Not on file documented as of this encounter Plan of Treatment Upcoming Encounters Date Type Department Care Team (Late st Contact Info) Description 07/30/2025 10:00 AM EDT Office Visit JESI [place] [facility] [address] [facility] [phone] Young Borden DO [address] [place], [place] [id number] documented as of this encounter Procedures Procedure Name Priority Date/Time Associated Diagnosis Comments US PELVIS TRANSVAGINAL 07/11/2023 10:25 AM EDT documented in this encounter Results * US PELVIS TRANSVAGINAL (07/11/2023 10:25 AM EDT) Anatomical Region Laterality Modality Other 07/11/2023 10:2 5 AM EDT Narrative 07/11/2023 10:28 AM EDT [address] [address] Ultrasound Report Signed Patient: SANTOS HOWE MR#: [id number] : 1985 Acct:[id number] Age/Sex: 38 / F ADM Date: 07/11/23 Loc: US Attending Dr: Young Borden D.O. Ordering Physician: Young Borden D.O. Date of Service: 07/11/23 Procedure(s): US pelvis transvaginal Accession Number(s): [id number] cc: Young Borden D.O.; Physician,Non-Staff Molly [address] [address] Patient Name: SANTOS HOWE MRN: [id number]:[id number] date: 1985 Sex: F Assigned Patient Location: US Current Patient Location: US Accession/Order Number: [id number] Exam Date: 07/11/2023 10:00 Report Date: 07/11/2023 10:25 At the request of: YOUNG BORDEN Procedure: US pelvis transvaginal EXAMINATION: US pelvis transvaginal HISTORY: right ovarian cyst N83.201 COMPARISON: 05/28/2023, 01/23/2022 FINDINGS: Transvaginal images The uterus is surgically absent. The right ovary measures 4.0 x 2.8 x 2.5 cm. Normal color and Doppler flow. Area of anechoic echogenicity measuring 2.2 x 2.0 x 2.0 cm. A simple cyst is favored. Additional subcentimeter follicles. The left ovary is not visualized No free fluid US/US pelvis transvaginal IMPRESSION: 2.2 cm right ovarian simple cyst Electronically authenticated by: DEZ RUANO Date: 07/11/2023 10:25 Dictated By: Dez Ruano M.D. Signed By: 07/11/23 1028 DD/ 24 TD/TT: Pharmacy Clinical Coordinator: Procedure Note Radiology, Radiologist, MD - 07/11/2023 [place] [address] Ultrasound Report Signed Patient: SANTOS HOWE JMR#: [id number] : 1985Acct:[id number] Age/Sex: 38 / FADM Date: 07/11/23 Loc: US Attending Dr: Young Borden D.O. Ordering Physician: Young Borden D.O. Date of Service: 07/11/23 Procedure(s): US pelvis transvaginal Accession Number(s): [id number] cc: Young Borden D.O.; Physician,Non-Staff Molly The [place] [id number] Patient Name: SANTOS HOWE MRN: [facility]:[id number] date: 1985 Sex: F Assigned Patient Location: US Current Patient Location: US Accession/Order Number: [id number] Exam Date: 07/11/2023 10:00 Report Date: 07/11/2023 10:25 At the request of: YOUNG BORDEN Procedure: US pelvis transvaginal EXAMINATION: US pelvis transvaginal HISTORY: right ovarian cyst N83.201 COMPARISON: 05/28/2023, 01/23/2022 FINDINGS: Transvaginal images The uterus is surgically absent. The right ovary measures 4.0 x 2.8 x 2.5 cm. Normal color and Dopplerflow. Area of anechoic echogenicity measuring 2.2 x 2.0 x 2.0 cm. A simple cystis favored. Additional subcentimeter follicles. The left ovary is not visualized No free fluid US/US pelvis transvaginal IMPRESSION: 2.2 cm right ovarian simple cyst Electronically authenticated by: DEZ RUANO Date: 07/11/2023 10:25 Dictated By: Dez Ruano M.D. Signed By:07/11/238 DD/ 24 TD/TT: Pharmacy Clinical Coordinator: us Young Suha DO [facility] Final Result documented in this encounter Visit Diagnoses Not on filedocumented in this encounter Care Teams Research Program Manager Relationship Specialty Start Date End Date Carli Abbasi MD [address] [place] [address] PCP - General Pediatrics 07/23/24 documented as of this encounter
--- OUTSIDE RECORDS SUMMARY | 2025-01-11 08:03 | XMS_ITS | Clinical Summary ---
Author Organization [facility] Address [address] [place] [address] Phone Care Team Providers Care Supervisor Data Processing Name Role Phone Unavailable Primary Care Provider Unavailabl e Social History Tobacco Use Types Packs/Day Years Used Date Smoking Tobacco: Never Assessed Comments Unknown Sex and Gender Information Value Date Recorded Sex Assigned at Not on file Legal Sex Female 10:21 AM EST Gender Identity Not on file Sexual Orientation Not on file Plan of Treatment Not on file
--- OUTSIDE RECORDS SUMMARY | 2025-01-11 08:03 | XMS_ITS | Encounter Summary ---
Author Organization [facility] Address [address] [place] [address] Care Team Providers Care Project Engineering Manager Name Role Phone Carli Abbasi MD Primary Care Provider [phone] Encounter Details Date Type Department Care Team (Late st Contact Info) Description 05/29/2023 Clinisync Result Encounter [facility] External Department Unsolicited Young Borden, DO [address] [place] [address] Social History Tobacco Use Types Packs/Day Years Used Date Smoking Tobacco: Never Assessed Comments No Sex and Gender Information Value Date Recorded Sex Assigned at Not on file Legal Sex Female 7:12 PM EDT Gender Identity Not on file Sexual Orientation Not on file documented as of this encounter Plan of Treatment Upcoming Encounters Date Type Department Care Team (Late st Contact Info) Description 07/30/2025 10:00 AM EDT Office Visit JESI [place] [facility] [address] [place] [address] [place] [phone] Young Borden, DO [address] [place] [address] documented as of this encounter Procedures Procedure Name Priority Date/Time Associated Diagnosis Comments US PELVIS 05/29/2023 8:40 AM EST documented in this encounter Results * US PELVIS (05/29/2023 8:40 AM EST) Anatomical Region Laterality Modality Other 05/29/2023 8:40 AM EST Narrative 05/29/2023 8:43 AM EST [address] [address] Ultrasound Report Signed Patient: SANTOS HOWE MR#: [id number] : 1985 Acct:[id number] Age/Sex: 38 / F ADM Date: 05/28/23 Loc: US Attending Dr: Young Borden D.O. Ordering Physician: Young Borden D.O. Date of Service: 05/28/23 Procedure(s): US pelvis Accession Number(s): [id number] cc: Young Borden D.O.; Physician,Non-Staff Molly [address] [address] Patient Name: SANTOS HOWE MRN: [facility]:[id number] date: 1985 Sex: F Assigned Patient Location: US Current Patient Location: Accession/Order Number: [id number] Exam Date: 05/28/2023 14:00 Report Date: 05/29/2023 08:40 At the request of: YOUNG BORDEN Procedure: US pelvis EXAM: US pelvis HISTORY: . Pelvic pain in female R10.2 . COMPARISON: None. TECHNIQUE: Transabdominal scanning was performed FINDINGS: The uterus is absent. Right ovary measures 3.7 x 3.3 x 2.8 cm. Color-flow is noted. Within the right ovary there is a 2.3 x 1.9 x 1.8 cm avascular hypoechoic complicated cystic structure. Left ovary measures 2.3 x 1.5 x 1.7 cm. Color-flow is noted. No masses are noted. The bladder is grossly unremarkable. No fluid is noted in the cul-de-sac. US/US pelvis IMPRESSION: 1. Absent uterus. 2. Normal left ovary. 3. 2.3 x 1.8 cm complicated avascular cystic structure in the right ovary. Findings could be due to a hemorrhagic cyst, an inflammatory mass, or less likely neoplasm. Clinical correlation is suggested. You may was consider follow-up in 6-8 weeks. If this is a hemorrhagic cyst, this should show decrease in size and/or resolution. Electronically authenticated by: DEZ TREVIÑO Date: 05/29/2023 08:40 Dictated By: Dez Treviño M.D. Signed By: 05/29/2343 DD/ 9 TD/TT: Dry Cleaner Apprentice: Procedure Note Radiology, Radiologist, - 05/29/2023 [place] [address] Ultrasound Report Signed Patient: SANTOS HOWE JMR#: [id number] : 1985Acct:[id number] Age/Sex: 38 / FADM Date: 05/28/23 Loc: US Attending Dr: Young Borden D.O. Ordering Physician: Young Borden D.O. Date of Service: 05/28/23 Procedure(s): US pelvis Accession Number(s): [id number] cc: Young Borden D.O.; Physician,Non-Staff Molly The [place] [id number] Patient Name: SANTOS HOWE MRN: [id number] date: 1985 Sex: F Assigned Patient Location: US Current Patient Location: Accession/Order Number: [id number] Exam Date: 05/28/2023 14:00 Report Date: 05/29/2023 08:40 At the request of: YOUNG BORDEN Procedure: US pelvis EXAM: US pelvis HISTORY: . Pelvic pain in female R10.2 . COMPARISON: None. TECHNIQUE: Transabdominal scanning was performed FINDINGS: The uterus is absent. Right ovary measures 3.7 x 3.3 x 2.8 cm. Color-flow is noted. Within theright ovary there is a 2.3 x 1.9 x 1.8 cm avascular hypoechoic complicatedcystic structure. Left ovary measures 2.3 x 1.5 x 1.7 cm. Color-flow is noted. No masses are noted. The bladder is grossly unremarkable. No fluid is noted in the cul-de-sac. US/US pelvis IMPRESSION: 1. Absent uterus. 2. Normal left ovary. 3. 2.3 x 1.8 cm complicated avascular cystic structure in the right ovary. Findings could be due to a hemorrhagic cyst, an inflammatory mass, or less likely neoplasm. Clinical correlation is suggested. You may was consider follow-up in 6-8 weeks. If this is a hemorrhagic cyst, this should show decrease in size and/or resolution. Electronically authenticated by: DEZ TREVIÑO Date: 05/29/2023 08:40 Dictated By: Dez Treviño M.D. Signed By:05/29/2343 DD/ TD/TT: Dry Cleaner Apprentice: us Young Suha DO [facility] Final Result documented in this encounter Visit Diagnoses Not on filedocumented in this encounter Care Teams Project Engineering Manager Relationship Specialty Start Date End Date Carli Abbasi MD [address] [place] [address] PCP - General Pediatrics 07/23/24 documented as of this encounter
--- OUTSIDE RECORDS SUMMARY | 2025-01-11 08:03 | XMS_ITS | Encounter Summary ---
Author Organization [facility] Address [address] [place] [place] [address] Care Team Providers Care Senior Systems Programmer Name Role Phone Carli Abbasi MD Primary Care Provider Encounter Details Date Type Department Care Team (Late st Contact Info) Description 07/11/2023 Clinisync Result Encounter [facility] External Department Unsolicited Junior Borden, DO [address] [place] [address] Social History Tobacco Use Types Packs/Day Years [...] EDT Office Visit JESI [place] [facility]ricia [address] [facility] [place] [address] Junior Borden DO [address] [place], [place] [id number] documented as of this encounter Procedures Procedure Name Priority Date/Time Associated Diagnosis Comments MM TOMOSYNTHESIS SCREENING BI 07/11/2023 1:31 PM EDT documented in this encounter Results * MM TOMOSYNTHESIS SCREENING BI (07/11/2023 1:31 PM EDT) Anatomical Region Laterality Modality Other 07/11/2023 1:31 PM EDT Narrative 07/11/2023 1:32 PM EDT The [address] [address] Mammography Report Signed Patient: SANTOS HOWE MR#: [id number] : 1985 Acct:[id number] Age/Sex: 38 / F ADM Date: 07/11/23 Loc: US Attending Dr: Junior Borden D.O. Ordering Physician: Junior Borden D.O. Results: Date of Service: 07/11/23 Follow Up: Procedure(s): MM tomosynthesis screening BI Accession Number(s): [id number] cc: Junior Borden D.O.; Physician,Non-Staff Molly Patient Name: SANTOS HOWE MR#: [id number] : 1985 Exam Date: 07/11/2023 Ordering Doctor: DR Junior Borden . RADIOLOGY REPORT PROCEDURE: MM TOMOSYNTHESIS SCREENING BI COMPARISON: None. INDICATIONS: screening Calculator Name NCI Breast Cancer Risk Assessment Tool 5 Year Breast Cancer Risk 0.50% Lifetime Breast Cancer Risk 9.00% Personal Breast Cancer No Personal Ovarian Cancer No Treatments None Family Cancers Mother with lymphoma cancer at age 64. LOCATION: [facility] BREAST COMPOSITION: Scattered areas fibroglandular density. FINDINGS: DIAGNOSTIC CATEGORY 2--BENIGN FINDING: Scattered benign-appearing calcifications are present. Scattered benign-appearing lymph nodes are present. RIGHT BREAST: No significant suspicious finding. LEFT BREAST: No significant suspicious finding. RECOMMENDATIONS: ROUTINE MAMMOGRAM AND CLINICAL EVALUATION IN 12 MONTHS. PLEASE NOTE: A NORMAL MAMMOGRAM DOES NOT EXCLUDE THE POSSIBILITY OF BREAST CANCER. A CLINICALLY SUSPICIOUS PALPABLE LUMP SHOULD BE BIOPSIED. Dictated by: Nilson Cuevas MD on 07/11/2023 at 13:30 Approved by: Nilson Cuevas MD on 07/11/2023 at 13:31 Dictated By: Nilson Cuevas M.D. Signed By: 07/11/23 1332 DD/ 1331 TD/TT: Manager House: Procedure Note Radiology, Radiologist, - 07/11/2023 [place] [address] Mammography Report Signed Patient: SANTOS HOWE JMR#: [id number] : 1985Acct:[id number] Age/Sex: 38 / FADM Date: 07/11/23 Loc: US Attending Dr: Junior Borden D.O. Ordering Physician: Junior Borden D.O.Results: Date of Service: 07/11/23Follow Up: Procedure(s): MM tomosynthesis screening BI Accession Number(s): [id number] cc: Junior Borden D.O.; Physician,Non-Staff Molly Patient Name: SANTOS HOWE MR#: [id number] : 1985 Exam Date: 07/11/2023 Ordering Doctor: DR Junior Borden . RADIOLOGY REPORT PROCEDURE: MM TOMOSYNTHESIS SCREENING BI COMPARISON: None. INDICATIONS: screening Calculator Name NCI Breast Cancer Risk Assessment Tool 5 Year Breast Cancer Risk 0.50% Lifetime Breast Cancer Risk 9.00% Personal Breast Cancer No Personal Ovarian Cancer No Treatments None Family Cancers Mother with lymphoma cancer at age 64. LOCATION: [facility] BREAST COMPOSITION: Scattered areas fibroglandular density. FINDINGS: DIAGNOSTIC CATEGORY 2--BENIGN FINDING: Scattered benign-appearing calcifications are present. Scattered benign-appearing lymph nodes are present. RIGHT BREAST: No significant suspicious finding. LEFT BREAST: No significant suspicious finding. RECOMMENDATIONS: ROUTINE MAMMOGRAM AND CLINICAL EVALUATION IN 12 MONTHS. PLEASE NOTE: A NORMAL MAMMOGRAM DOES NOT EXCLUDE THE POSSIBILITY OFBREAST CANCER. A CLINICALLY SUSPICIOUS PALPABLE LUMP SHOULD BE BIOPSIED. Dictated by: Nilson Cuevas MD on 07/11/2023 at 13:30 Approved by: Nilson Cuevas MD on 07/11/2023 at 13:31 Dictated By: Nilson Cuevas M.D. Signed By:07/11/23 1332 DD/ 1331 TD/TT: Manager House: us Junior Borden DO [facility] Final Result documented in this encounter Visit Diagnoses Not on filedocumented in this encounter Care Teams Senior Systems Programmer Relationship Specialty Start Date End Date Carli Abbasi MD [address] [facility] [place] [id number] PCP - General Pediatrics 07/23/24 documented as of this encounter
--- OUTSIDE RECORDS SUMMARY | 2025-01-11 08:03 | XMS_ITS | Encounter Summary ---
Author Organization [facility] Address [address] [facility] [place] [address] Care Team Providers Care Siding Mechanic Name Role Phone Carli Abbasi MD Primary Care Provider [phone] Encounter Details Date Type Department Care Team (Late Contact Info) Description 08/02/2024 Orders Only JESI P[place]Z [address] [place] [address] [place] [phone] Merry Vidal MA [address] [facility] [place] [address] Social History Tobacco Use Types Packs/Day Years [...] Encounters Date Type Department Care Team (Late Contact Info) Description 07/30/2025 10:00 AM EDT Office Visit JESI PEREZ [address] [place] [address] [place] [phone] Junior Borden DO [address] [place], [place] [phone] documented as of this encounter Procedures Procedure Name Priority Date/Time Associated Diagnosis Comments PAP SMEAR Routine 07/23/2024 12:00 AM EDT documented in this encounter Results * Pap Smear (07/23/2024 12:00 AM EDT) Swab Cervical swab / Unknown us Junior Suha DO LAB CYTOLOGY ORDERABLES Final Re sult EXTERNAL LAB documented in this encounter Visit Diagnoses Not on filedocumented in this encounter Care Teams Siding Mechanic Relationship Specialty Start Date End Date Carli Abbasi MD [address] [place] [address] PCP - General Pediatrics 07/23/24 documented as of this encounter
--- OUTSIDE RECORDS SUMMARY | 2025-01-11 08:03 | XMS_ITS | Clinical Summary ---
Author Organization [facility] Address [address] [place] [address] Care Team Providers Care Laborer Pullet Farm Name Role Phone Carli Abbasi MD Primary Care Provider [phone] Allergies Active Allergy Reactions Criticality Noted Date Comments Sulfamethoxazole Rash Low 09/04/2019 Sulfamethoxazole-Trimethoprim Rash Low 2019 Anti-infective agents Trimethoprim Rash Low 09/04/2019 Medications docusate sodium (Colace) 100 MG capsule 1 (one) time each day at the same time Active busPIRone (Buspar) 10 MG tablet Take 10 mg by mouth in the morning and 10 mg in the evening. Active ARIPiprazole (Abilify) 5 MG tablet 1 tablet Orally BED TIME for 90 days Active DULoxetine (Cymbalta) [address] capsule 1 (one) time each day at the same time Active Ferrous Sulfate (iron) 90 (18 Fe) MG tablet 1 (one) time each day at the same time Active hydrOXYzine pamoate (Vistaril) 25 MG capsule 1 (one) time each day at the same time Active lamoTRIgine (LaMICtal) 25 MG tablet TAKE ONE TABLET BY MOUTH EVERY MORNING Orally morning for 90 days Active Lutein (KP Lutein) 6 MG capsule Oral Active tobramycin (Tobrex) 0.3 % ophthalmic solution 07/10/2022 Active vilazodone (Viibryd) 10 mg tablet 1 (one) time each day at the same time Active glycopyrrolate (Robinul) 1 MG tablet Take by mouth 2 (two) times a day Active omega-3 acid ethyl esters (Lovaza) 1 g capsule every 12 (twelve) hours 07/12/2024 Active Family History Medical History Relation Name Comments Alcohol abuse Father Diabetes Other Relation Name Status Comments Daughter 1 Alive Daughter 2 Alive Daughter 3 Alive Father Alive Mother Alive Other Social History Tobacco Use Types Packs/Day Years Used Date Smoking Tobacco: Never Tobacco Cessation:Counseling Given: Not Answered Alcohol Use Standard Drinks/Week Comments Yes 0 (1 standard drink = 0.6 oz pur e alcohol) caffeine: 1-2 cups per day Comments No Sex and Gender Information Value Date Recorded Sex Assigned at Not on file Legal Sex Female 7:12 PM EDT Gender Identity Not on file Sexual Orientation Not on file Last Filed Vital Signs Vital Sign Reading Time Taken Comments Blood Pressure 104/70 07/23/2024 3:04 PM EDT Pulse - - Temperature - - Respiratory Rate - - Oxygen Saturation - - Inhaled Oxygen Concentration - - Weight 89.1 kg (196 lb 6.4 oz) 07/23/2024 3:04 P M EDT Height 167.6 cm (5' 6 ) 07/13/2022 12:00 PM EDT Body Mass Index 31.7 07/13/2022 12:00 PM EDT Plan of Treatment Upcoming Encounters Date Type Department Care Team (Late st Contact Info) Description 07/30/2025 10:00 AM EDT Office Visit [facility] [address] [facility] [place] [address] Junior Borden DO [address] [facility] [address] [place], [place] [phone] Health Maintenance Due Date Last Done Comments Influenza Vaccine (#1) 2024 Mammogram 07/26/2025 07/26/2024, 07/11/2023 Cervical Cancer Screening 07/23/2029 HPV/Cotest 07/23/2029 Pap Smear 07/23/2029 07/23/2024, 07/07/2023, 06/03 Procedures Procedure Name Priority Date/Time Associated Diagnosis Comments MM TOMOSYNTHESIS SCREENING BI 07/26/2024 2:46 PM EDT PAP SMEAR Routine 07/23/2024 12:00 AM EDT from Last 3 Months or Most Recently Relevant to Health Maintenance Results * MM TOMOSYNTHESIS SCREENING BI (07/26/2024 2:46 PM EDT) Anatomical Region Laterality Modality Other 07/26/2024 2:46 PM EDT Narrative 07/26/2024 2:47 PM EDT The [address] [address] Mammography Report Signed Patient: SANTOS HOWE MR#: [id number] : 1985 Acct:[id number] Age/Sex: 39 / F ADM Date: 07/26/24 Loc: MAMMO Attending Dr: Junior Borden D.O. Ordering Physician: Junior Borden D.O. Results: Date of Service: 07/26/24 Follow Up: Procedure(s): MM tomosynthesis screening BI Accession Number(s): [id number] cc: Junior Borden D.O.; Physician,Non-Staff Molly Patient Name: SANTOS HOWE MR#: [id number] : 1985 Exam Date: 07/26/2024 Ordering Doctor: DR Junior Borden . RADIOLOGY REPORT PROCEDURE: MM TOMOSYNTHESIS SCREENING BI COMPARISON: MM TOMOSYNTHESIS SCREENING BI, 07/11/2023. INDICATIONS: Screening Calculator Name NCI Breast Cancer Risk Assessment Tool 5 Year Breast Cancer Risk 0.50% Lifetime Breast Cancer Risk 9.00% Personal Breast Cancer No Personal Ovarian Cancer No Treatments None Family Cancers Mother with lymphoma cancer at age 64. LOCATION: [facility] BREAST COMPOSITION: There are scattered areas of fibroglandular density. FINDINGS: RIGHT BREAST: No significant suspicious finding. LEFT BREAST: No significant suspicious finding. DIAGNOSTIC CATEGORY 1--NEGATIVE. RECOMMENDATIONS: ROUTINE MAMMOGRAM AND CLINICAL EVALUATION IN 12 MONTHS. PLEASE NOTE: A NORMAL MAMMOGRAM DOES NOT EXCLUDE THE POSSIBILITY OF BREAST CANCER. A CLINICALLY SUSPICIOUS PALPABLE LUMP SHOULD BE BIOPSIED. Dictated by: Mark Clarke DO on 07/26/2024 at 14:39 Approved by: Mark Clarek DO on 07/26/2024 at 14:46 Dictated By: Mark Clarke D.O. Signed By: 07/26/24 1447 DD/DT: 03/1445 TD/TT: Mmd Unit Teacher: Procedure Note Radiology, Radiologist, MD - 07/26/2024 [place] [address] Mammography Report Signed Patient: SANTOS HOWE JMR#: [id number] : 1985Acct:[id number] Age/Sex: 39 / FADM Date: 07/26/24 Loc: MAMMO Attending Dr: Junior Borden D.O. Ordering Physician: Junior Borden D.O.Results: Date of Service: 07/26/24Follow Up: Procedure(s): MM tomosynthesis screening BI Accession Number(s): [id number] cc: Junior Borden D.O.; Physician,Non-Staff Molly Patient Name: SANTOS HOWE MR#: [id number] : 1985 Exam Date: 07/26/2024 Ordering Doctor: DR Junior Borden . RADIOLOGY REPORT PROCEDURE: MM TOMOSYNTHESIS SCREENING BI COMPARISON: MM TOMOSYNTHESIS SCREENING BI, 07/11/2023. INDICATIONS: Screening Calculator Name NCI Breast Cancer Risk Assessment Tool 5 Year Breast Cancer Risk 0.50% Lifetime Breast Cancer Risk 9.00% Personal Breast Cancer No Personal Ovarian Cancer No Treatments None Family Cancers Mother with lymphoma cancer at age 64. LOCATION: [facility] BREAST COMPOSITION: There are scattered areas of fibroglandulardensity. FINDINGS: RIGHT BREAST: No significant suspicious finding. LEFT BREAST: No significant suspicious finding. DIAGNOSTIC CATEGORY 1--NEGATIVE. RECOMMENDATIONS: ROUTINE MAMMOGRAM AND CLINICAL EVALUATION IN 12 MONTHS. PLEASE NOTE: A NORMAL MAMMOGRAM DOES NOT EXCLUDE THE POSSIBILITY OFBREAST CANCER. A CLINICALLY SUSPICIOUS PALPABLE LUMP SHOULD BE BIOPSIED. Dictated by: Mark Clarke DO on 07/26/2024 at 14:39 Approved by: Mark Clarke DO on 07/26/2024 at 14:46 Dictated By: Mark Clarke D.O. Signed By:07/26/24 1447 DD/ 45 TD/TT: Mmd Unit Teacher: us Junior Suha DO [facility] Final Result * Pap Smear (07/23/2024 12:00 AM EDT) Swab Cervical swab / Unknown Junior Borden DO LAB CYTOLOGY ORDERABLES Final Re sult EXTERNAL LAB from Last 3 Months or Most Recently Relevant to Health Maintenance Insurance [employer] Care Teams Laborer Pullet Farm Relationship Specialty Start Date End Date Carli Abbasi MD [address] [place] [address] PCP - General Pediatrics 07/23/24
--- OUTSIDE RECORDS SUMMARY | 2025-01-11 08:03 | XMS_ITS | Clinical Summary ---
Author Organization [facility] [facility] Address [id number] [address] [place] [address] Care Team Providers Care Field Crop Farmer Name Role Phone Shana Castro HOUSE SUPERINTENDENT-PSYCHOLOGY LECTURER Primary Care Provider [phone] Allergies Active Allergy Reactions Criticality Noted Date Comments Sulfamethoxazole-Trimethopri m Rash Low 12/25/2019 Anti-infective agents Medications vit calc,iron,folic ( VITAMIN ORAL) Take by mouth. Active DULoxetine (CYMBALTA) 60 mg capsule Take 1 capsule (60 mg total) by mouth in the morning. Active busPIRone (BUSPAR) 10 mg tablet Take 1 tablet (10 mg total) by mouth in the morning and at bedtime. Active ARIPiprazole (ABILIFY) 5 mg tablet Take 1 tablet (5 mg total) by mouth in the morning. Active lamoTRIgine (LaMICtal) 25 mg tablet Take 1 tablet (25 mg total) by mouth in the morning. Active ondansetron ODT (ZOFRAN ODT) 4 mg disintegrating tablet Dissolve 1 tablet (4 mg total) on tongue every 8 (eight) hours as needed for nausea for up to 30 doses. 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 Max Daily Amount: 4 tablets 12 tablet 3 Active Active Problems Problem Noted Date Diagnosed Date AMA (advanced maternal age) multigravida 35+ H/O miscarriage, currently History of 2019 novel coronavirus disease (COVID -19) Family History Medical History Relation Name Comments Alcohol abuse Father Diabetes Maternal Grandmother Cancer Mother uterine and lym phoma Relation Name Status Comments Father Maternal Grandmother Mother Social History Tobacco Use Types Packs/Day Years Used Date Smoking Tobacco: Former Cigarettes 0.5 10 2 003 - 2012 Smokeless Tobacco: Never Tobacco Cessation:Counseling Given: Not Answered Alcohol Use Standard Drinks/Week Comments Yes 0 (1 standard drink = 0.6 oz pur e alcohol) socially Childcare Answer Date Recorded Childcare Unknown 10/11/2018 Employment Answer Date Recorded Employment Unknown 10/11/2018 Hunger Screening Answer Date Recorded Within the past 12 months we worried whether our food would run out before we got money to buy more. Never True 04/06/2023 Food Insecurity - Inability Not on file 09/2022 Purpose - Life Answer Date Recorded Purpose and direction in life Unknown Comments No Sex and Gender Information Value Date Recorded Sex Assigned at Not on file Legal Sex Female 11:57 AM EDT Gender Identity Not on file Sexual Orientation Not on file Last Filed Vital Signs Vital Sign Reading Time Taken Comments Blood Pressure 138/74 04/08/2023 12:18 PM EST Pulse 49 04/08/2023 12:18 PM EST Temperature 36.2 C (97.2 F) 04/08/2023 11:22 AM EST Respiratory Rate 10 04/08/2023 12:18 PM EST Oxygen Saturation 100% 04/08/2023 12:18 PM EST Inhaled Oxygen Concentration - - Weight 76.7 kg (169 lb) 04/20/2023 3:30 PM EST Height 165.1 cm (5' 5 ) 04/20/2023 3:30 PM EST Body Mass Index 28.12 04/20/2023 3:30 PM EST Plan of Treatment Health Maintenance Due Date Last Done Comments Depression Screening 1995 Adult BMI Screening 04/20/2024 04/20/2023 Tobacco Screening 04/20/2024 04/20/2023 COVID-19 Vaccine ( - 2024- season) 2024, 02/01/2021 Influenza Vaccine 12/31/2024 DTaP,Tdap and Td Vaccines (2 - Tdap) 07/13/203006/30 Pap Smear Discontinued 07/07/2023, 06/25/2019 Medical Devices Not on file Insurance [facility] [facility] Care Teams Field Crop Farmer Relationship Specialty Start Date End Date Shana Castro APRN-FNP [address] [place], [place] [id number] PCP - General Family Medicine 07/13/24
--- OUTSIDE RECORDS SUMMARY | 2025-01-11 08:04 | XMS_ITS | CCD ---
Author Organization [facility] Care Team Providers Care Reroller Hand Name Role Phone Adilene Chu Unavailable Unavailable Unknown, Referring Provider Unavailable Unav ailable [facility] Unava ilable SUHA, DR VIDAL Attending Unavailable SUHA, DR VIDAL Consulting Unavailable SUHA, DR VIDAL Admitting Unavailable TROY II, PROMISE Consulting Unavailable FILUTZECLARA Consulting Unavailable [facility] Unava ilable AMBER, DR VAL Kruger Admitting Unavailable AMBER, DR VLA Kruger Attending Unavailable AMBER, DR VAL Kruger Consulting Unavailable [facility] Unava ilable SUHA, DR VIDAL Attending Unavailable SUHA, DR VIDAL Admitting Unavailable [facility] Unava ilable SUHA, DR VIDAL Attending Unavailable SUHA, DR VIDAL Consulting Unavailable SUHA, DR VIDAL Admitting Unavailable [facility] Unava ilable SUHA, DR VIDAL Attending Unavailable ELGIN, DR DEZ Beal Consulting Unavailable SUHA, DR VIDAL Admitting Unavailable SUHA, DR VIDAL Consulting Unavailable Rachele Ram Unavailable NON STAFF Primary Care Provider UnavailRASHEEDA Worrell Attending Provider Rachele Ram Attending Unavailable Rachele Ram Admitting Unavailable NON STAFF Primary Care Unavailable Unavailable Primary Care Provider Unavailabl e JAYRO COLE Referring Unavailable DOUGLAS, JAYRO Primary Care Unavailable JAYRO COLE Referring Unavailable DOUGLAS, JAYRO Primary Care Unavailable Carli Abbasi MD Primary Care Provider YOUNG BORDEN Attending Unavailable Allergies Allergy Classification Reported Allergen(s) Allergy Type Date of Onset Reaction(s) Facility (1 source) Sulfamethoxazole / Trimethoprim Drug Allergy 8 [facility] Repository (8 sources) Sulfamethoxazole / Trimethoprim Drug Allergy 0 [facility] (8 sources) Sulfamethoxazole; Translations: [sulfamethoxazole] Drug Allergy 0 [facility] (8 sources) Trimethoprim; Translations: [trimethoprim] Drug Allergy 0 [facility] (1 source) Sulfamethoxazole / Trimethoprim; Translations: [SULFAMETHOXAZOLE-TR IMETHOPRIM] Drug Allergy 0 [facility] Repository Medications Current Medications Medication Drug Class(es) Dates Sig (Normalized) Sig (Original) amoxicillin 875 mg / clavulanate 125 mg oral tablet (1 source) Penicillin-class Antibacterial Start: 05-12-2023 take 1 tablet by mouth every twelve hours Amoxicillin-Pot Clavulanate 875-125 MG 1 tablet Orally every 12 hrs for 10 May, Active ARIPiprazole (8 sources) Atypical Antipsychotic Start: 05-12-2023 Abilify May, Active ARIPiprazole (Ab ilify) 5 MG tablet 1 tablet Orally BED TIME for 90 days Active busPIRone hydrochloride 10 mg oral tablet (8 sources) take 1 tablet by mouth in [...] 11:00pm docusate sodium 100 mg oral capsule (6 sources) docusate sodium (Colace) 100 MG capsule 1 (one) time each day at the same time Active DULoxetine (9 sources) Serotonin and Norepinephrine Reuptake Inhibitor Start: 024 Cymbalta May, Active DULoxetine (Cymb cuba) [address] capsule 1 (one) time each day at the same time Active ferrous sulfate 90 mg oral tablet (6 sources) Ferrous Sulfate (iron) 90 (18 Fe) MG tablet 1 (one) time each day at the same time Active glycopyrrolate 1 mg oral tablet (5 sources) take 1 tablet by mouth twice daily glycopyrrolate (Robinul) 1 MG tablet Take by mouth 2 (two) times a day Active hydrOXYzine pamoate 25 mg oral capsule (8 sources) Antihistamine hydrOXYzine pamo ate (Vistaril) 25 MG capsule 1 (one) time each day at the same time Active lamoTRIgine (8 sources) Mood Stabilizer, Anti-epileptic Agent Start: 05-12-19 24 lamoTRIgine May, Active take 1 tablet by quiana th once daily in the morning lamoTRIgine (LaMICtal) 25 MG tablet TAKE ONE TABLET BY MOUTH EVERY MORNING Orally morning for 90 days Active lutein 6 mg oral capsule (6 sources) Lutein (KP Lutei n) 6 MG capsule Oral Active omega-3 acid ethyl esters (group home) 1000 mg oral capsule (4 sources) Start: 07-13-19 omega-3 acid ethyl esters (Lovaza) 1 g capsule every 12 (twelve) hours 07/12/2024 Active tobramycin 3 mg/ml ophthalmic solution (6 sources) Aminoglycoside Antibacterial Start: 07-11-19 tobramycin (Tobrex) 0.3 % ophthalmic solution 07/10/2022 Active traZODone hydrochloride 50 mg oral tablet (1 source) Serotonin Reuptake Inhibitor Start: 09-07-19 20 take 25 mg by mouth once daily at bedtime Trazodone Active 25 MG PO Daily at bedtime September 06, 2019 11:00pm 24 hr venlafaxine 75 mg extended release oral capsule (1 source) Serotonin and Norepinephrine Reuptake Inhibitor Start: 09-07-19 take 75 mg by mouth once daily Venlafaxine Active 75 MG PO Daily September 06, 2019 11:00pm vilazodone hydrochloride 10 mg oral tablet (6 sources) vilazodone (Viibryd) 10 mg tablet 1 [...] 07-13-2024 Episodic Other aftercare (1 source) 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 [facility] Comment on above: TESTS RESULT FLAG UN ITS REF RANGE LAB Clinician Provided Cytology Information Source.............Vagina No. of containers..01 ThinPrep Vial Age Algo ACOG Prema... FLAG LEGEND: L-Low Normal,H-High Normal,LL-Alert Low,HH-Alert High <-Panic Low,>-Panic High,A-Abnormal,AA-Critical Abnormal Performed at: 01 =[address] [address] Bethanie Caldwell MD, HPV APTIMA Negative Negative [facility] Comment on above: This nucleic acid am plification test detects fourteen high- risk HPV types (16,18,31,33,35,39,45,51,52,56,58,59,66,68) without differentiation. Performed at: =[address] [id number] Pre Press Proofer: Bethanie Caldwell MD, Phone: [phone] Performed at: [address] [id number] Pre Press Proofer: Bethanie Caldwell MD, Phone: [phone] IGP, APTIMA HPV, RFX 16/18,45 Note . [facility] Comment on above: TESTS RESULT FLAG UN ITS REF RANGE LAB DIAGNOSIS: 02 NEGATIVE FOR INTRAEPITHELIAL LESION OR MALIGNANCY. Specimen adequacy: 02 Satisfactory for evaluation. No endocervical cells are present. This is consistent with a history of hysterectomy. Performed by: Dennis Olmedo Weaving Inspector (ASCP) . 02 Note: Note 02 The Pap smear is a screening test designed to aid in the detection of premalignant and malignant conditions of the uterine cervix. It is not a diagnostic procedure and should not be used as the sole means of detecting cervical cancer. Both false-positive and false-negative reports do occur. Test Methodology: Note 02 This liquid based ThinPrep(R) pap test was screened with the use of an image guided system. HPV Genotype Reflex Note 02 Criteria not met, HPV Genotype not performed. FLAG LEGEND: L-Low Normal,H-High Normal,LL-Alert Low,HH-Alert High <-Panic Low,>-Panic High,A-Abnormal,AA-Critical Abnormal Performed at: [address] [address] Bethanie Caldwell MD, [facility] MM TOMOSYNTHESIS SCREENING B [facility] 07-26-2024 [place] [address] Mammography Report Signed Patient: SANTOS HOWE MR#: [id number] : 1985 Acct:[id number] Age/Sex: 39 / F ADM Date: 07/26/24 Loc: MAMMO Attending Dr: Young Borden D.O. Ordering Physician: Young Borden D.O. Results: Date of Service: 07/26/24 Follow Up: Procedure(s): MM tomosynthesis screening BI Accession Number(s): [id number] cc: Young Borden D.O.; Physician,Non-Staff Molly Patient Name: SANTOS HOWE MR#: [id number] : 1985 Exam Date: 07/26/2024 Ordering Doctor: DR Young Borden . RADIOLOGY REPORT PROCEDURE: MM TOMOSYNTHESIS SCREENING BI COMPARISON: MM TOMOSYNTHESIS SCREENING BI, 07/11/2023. INDICATIONS: Screening Calculator Name NCI Breast Cancer Risk Assessment Tool 5 Year Breast Cancer Risk 0.50% Lifetime Breast Cancer Risk 9.00% Personal Breast Cancer No Personal Ovarian Cancer No Treatments None Family Cancers Mother with lymphoma cancer at age 64. LOCATION: [facility] BREAST COMPOSITION: There are scattered areas of [...] Mark Clarke D.O. Signed By: 07/26/24 1447 DD/ 1446 TD/TT: [employer] Administrator: [facility] Radiology, Radiologist, MD - 07/26/2024 [place] [address] Mammography Report Signed Patient: SANTOS HOWE MR#: [id number] : 1985 Acct:[id number] Age/Sex: 39 / F ADM Date: 07/26/24 Loc: MAMMO Attending Dr: Young Borden D.O. Ordering Physician: Young Borden D.O. Results: Date of Service: 07/26/24 Follow Up: Procedure(s): MM tomosynthesis screening BI Accession Number(s): [id number] cc: Young Borden D.O.; Physician,Non-Staff Molly Patient Name: SANTOS HOWE MR#: [id number] : 1985 Exam Date: 07/26/2024 Ordering Doctor: DR Young Borden . RADIOLOGY REPORT PROCEDURE: MM TOMOSYNTHESIS SCREENING BI COMPARISON: MM TOMOSYNTHESIS SCREENING BI, 07/11/2023. INDICATIONS: Screening Calculator Name NCI Breast Cancer Risk Assessment Tool 5 Year Breast Cancer Risk 0.50% Lifetime Breast Cancer Risk 9.00% Personal Breast Cancer No Personal Ovarian Cancer No Treatments None Family Cancers Mother with lymphoma cancer at age 64. LOCATION: [facility] BREAST COMPOSITION: There are scattered areas of [...] Mark Clarke D.O. Signed By: 07/26/24 1447 DD/ 1446 TD/TT: Cognos Administrator: [facility] Radiology Study observation (narrative) [facility] MM TOMOSYNTHESIS SCREENING B IOrdered By: Radiologist Radiology on 07-26-2024 [facility] Work Phone: XR hand RT min 3V*on 024 XR hand RT min 3V* [facility] Main [place] [address] [place] [address] XRay Report Signed Patient: Santos Howe MR#: [id number] : 1985 Acct:[id number] Age/Sex: 38 / F ADM Date: 06/03/23 Loc: [facility] Room: Type: [facility] Attending Dr: Rachele Ram APRN Copies [...] Mark Clarke M.D.06/03/2023 2:57 PM Dictation Location: [facility]-- Transcribed By: [facility] 06/03/23 1457 Dictated By: Mark Clarke DO 06/03/23 1451 Signed By: 06/03/23 1457 [facility] XR hand RT min 3V* [facility] [employer] Other XR hand RT min 3V* [facility] [employer] Other XR hand RT min 3V* [address] [place] [address] [employer] Other XR hand RT min 3V* KEENAN Mota [address] [employer] Other XR hand RT min 3V* XRay Report [employer] Other XR hand RT min 3V* Signed [employer] Other XR hand RT min 3V* Patient: Santos Howe MR#: [id number] [employer] Other XR hand RT min 3V* [id number] [employer] Other XR hand RT min 3V* : 1985 Acct:[id number] [employer] Other XR hand RT min 3V* Age/Sex: 38 / F ADM Date: 06/03/23 [employer] Other XR hand RT min 3V* Loc: [facility] Room: Type: REG CLI [employer] Other XR hand RT min 3V* Attending Dr: Rachele Ram [facility] [employer] Other XR hand RT min 3V* Copies to: Rachele Ram APRN [employer] Other XR hand RT min 3V* Ordering Provider: Rachele Ram APRN [employer] Other XR hand RT min 3V* Date of Service: 06/03/23 [employer] Other XR hand RT min 3V* XR/XR hand RT min 3V*: Injury [employer] Other XR hand RT min 3V* 4 views right hand plain film [employer] Other XR hand RT min 3V* COMPARISON: None [employer] Other XR hand RT min 3V* HISTORY: Fell 3 days ago. Bruising and swelling over the first through third metacarpals. History [employer] Other XR hand RT min 3V* of right hand fracture. [employer] Other XR hand RT min 3V* ACUTE FINDINGS: Cortical irregularity involving the dorsal distal aspect of the distal carpal bones [employer] Other XR hand RT min 3V* identified. Correlat e with site of pain. This may correlate with the old fracture. [employer] Other XR hand RT min 3V* DEGENERATIVE CHANGE: Unremarkable [employer] Other XR hand RT min 3V* SOFT TISSUE FINDINGS : Unremarkable [employer] Other XR hand RT min 3V* JOINT EFFUSION: None [employer] Other XR hand RT min 3V* POSTOP CHANGES: None [employer] Other XR hand RT min 3V* BONY MINERALIZATION: Adequate [employer] Other XR hand RT min 3V* XR/XR hand RT min 3V* [employer] Other XR hand RT min 3V* IMPRESSION: Indeterminate age fracture of the distal dorsal aspect of the distal carpal bones. [employer] Other XR hand RT min 3V* Impression dictated by: Mark Clarke M.D.06/03/2023 2:57 PM [employer] Other XR hand RT min 3V* Dictation Location: [facility]--05 [employer] Other XR hand RT min 3V* Transcribed By: AMINA 06/03/23 [facility] [employer] Other XR hand RT min 3V* Dictated By: Mark Clarke DO 06/03/23 [facility] [employer] Other XR hand RT min 3V* Signed By: [employer] Other XR hand RT min 3V* 06/03/[address] [place] [address] [employer] Other BUNon 05-28-2022 Urea nitrogen [Mass/Vol] 15.0 mg/dL Normal 7.0-18.0 [facility] Comment on above: Performed By: #### B NERY CREShavon #### [facility] [address] [place] [address] Dr. Lucero Higuera CBC AUTO DIFFon 05-28-2022 BASO # 0.0 103/ul Normal 0.0-0.1 [facility] Comment on above: Performed By: #### C BC #### [facility] [address] [place] [address] Dr. Lucero Higuera Basophils/100 WBC (Bld) 0.2 % Normal 0.2-2.0 [facility] Comment on above: Performed By: #### C BC #### [facility] [address] [place] [address] Dr. Lucero Higuera EO # 0.0 103/ul Normal 0.0-0.7 [facility] Comment on above: Performed By: #### C BC #### [facility] [address] [place] [address] Dr. Lucero Higuera Eosinophils/100 WBC (Bld) 0.0 % Critically low 0.9-7.0 [facility] Comment on above: Performed By: #### C BC #### [facility] [address] [place] [address] Dr. Lucero Higuera Erythrocyte distribution width (RBC) [Ratio] 13.4 % Normal 11.0-15.0 [facility] Comment on above: Performed By: #### C BC #### [facility] [address] [place] [address] Dr. Lucero Higuera Hematocrit (Bld) [Volume fraction] 32.1 % Critically low 36.0-48.0 [facility] Comment on above: Performed By: #### C BC #### [facility] [address] [place] [address] Dr. Lucero Higuera Hemoglobin (Bld) [Mass/Vol] 11.9 g/dL Critically low 12.0-16.0 [facility] Comment on above: Performed By: #### C BC #### [facility] [address] [place] [address] Dr. Lucero Higuera IG # 0.04 10e3/ul Critically high 0.00-0.03 [facility] Comment on above: Performed By: #### C BC #### [facility] [address] [place] [address] Dr. Lucero Higuera IG % 0.3 % Normal 0.0-0.5 [facility] Comment on above: Performed By: #### C BC #### [facility] [address] [place] [address] Dr. Lucero Higuera LYMPH # 0.8 103/ul Critically low 1.2-3.8 [facility] Comment on above: Performed By: #### C BC #### [facility] [address] [place] [address] Dr. Lucero Higuera Lymphocytes/100 WBC (Bld) 6.1 % Critically low 20.5-60.0 [facility] Comment on above: Performed By: #### C BC #### [facility] [address] [place] [address] Dr. Lucero Higuera MANUAL DIFF REQ NO Normal [facility] Comment on above: Performed By: #### C BC #### [facility] [address] [place] [address] Dr. Lucero Higuera MCH (RBC) [Entitic mass] 30.4 pg Normal 26.7-34.0 [facility] Comment on above: Performed By: #### C BC #### [facility] [address] [address] [address] Lucero Higuera MCHC (RBC) [Mass/Vol] 37.1 g/dL Critically high 29.9-35.2 [facility] Comment on above: Performed By: #### C BC #### [facility] [address] [address] [address] Lucero Higuera MCV (RBC) [Entitic vol] 82.1 fL Normal 81.0-99.0 [facility] Comment on above: Performed By: #### C BC #### [facility] [address] [place] [address] Dr. Lucero Higuera MONO # 0.2 103/ul Critically low 0.3-0.8 [facility] Comment on above: Performed By: #### C BC #### [facility] [address] [place] [address] Dr. Lucero Higuera Monocytes/100 WBC (Bld) 1.8 % Normal 1.7-12.0 [facility] Comment on above: Performed By: #### C BC #### [facility] [address] [place] [address] Dr. Lucero iHguera NEUT # 12.1 103/ul Critically high 1.4-6.5 [facility] Comment on above: Performed By: #### C BC #### [facility] [address] [place] [address] Dr. Lucero Higuera Neutrophils/100 WBC (Bld) 91.6 % Critically high 43.0-75.0 [facility] Comment on above: Performed By: #### C BC #### [facility] [address] [place] [address] Dr. Lucero Higuera Platelet mean volume (Bld) [Entitic vol] 9.0 fL Critically low 9.5-13.5 [facility] Comment on above: Performed By: #### C BC #### [facility] [address] [place] [address] Dr. Lucero Higuera PLT 308 103/ul Normal 150-450 [facility] Comment on above: Performed By: #### C BC #### [facility] [address] [place] [address] Dr. Lucero Higuera RBC 3.91 106/ul Critically low 4.20-5.40 [facility] Comment on above: Performed By: #### C BC #### [facility] [address] [place] [address] Dr. Lucero Higuera WBC 13.2 103/ul Critically high 4.0-11.0 [facility] Comment on above: Performed By: #### C BC #### [facility] [address] [place] [address] Dr. Lucero Higuera BASO # 0.1 103/ul Normal 0.0-0.1 [facility] Comment on above: Performed By: #### C BC #### [facility] [address] [place] [address] Dr. Lucero Higuera Basophils/100 WBC (Bld) 0.5 % Normal 0.2-2.0 [facility] Comment on above: Performed By: #### C BC #### [facility] [address] [place] [address] Dr. Lucero Higuera EO # 0.4 103/ul Normal 0.0-0.7 [facility] Comment on above: Performed By: #### C BC #### [facility] [address] [place] [address] Dr. Lucero Higuera Eosinophils/100 WBC (Bld) 3.8 % Normal 0.9-7.0 [facility] Comment on above: Performed By: #### C BC #### [facility] [address] [place] [address] Dr. Lucero Higuera Erythrocyte distribution width (RBC) [Ratio] 14.3 % Normal 11.0-15.0 [facility] Comment on above: Performed By: #### C BC #### [facility] [address] [place] [address] Dr. Lucero Higuera Hematocrit (Bld) [Volume fraction] 43.1 % Normal 36.0-48.0 [facility] Comment on above: Performed By: #### C BC #### [facility] [address] [place] [address] Dr. Lucero Higuera Hemoglobin (Bld) [Mass/Vol] 13.0 g/dL Normal 12.0-16.0 [facility] Comment on above: Performed By: #### C BC #### [facility] [address] [place] [address] Dr. Lucero Higuera IG # 0.04 10e3/ul Critically high 0.00-0.03 [facility] Comment on above: Performed By: #### C BC #### [facility] [address] [place] [address] Dr. Lucero Higuera IG % 0.3 % Normal 0.0-0.5 [facility] Comment on above: Performed By: #### C BC #### [facility] [address] [place] [address] Dr. Lucero Higuera LYMPH # 4.2 103/ul Critically high 1.2-3.8 [facility] Comment on above: Performed By: #### C BC #### [facility] [address] [place] [address] Dr. Lucero Higuera Lymphocytes/100 WBC (Bld) 36.3 % Normal 20.5-60.0 [facility] Comment on above: Performed By: #### C BC #### [facility] [address] [place] [address] Dr. Lucero Higuera MANUAL DIFF REQ NO Normal [facility] Comment on above: Performed By: #### C BC #### [facility] [address] [place] [address] Dr. Lucero Higuera MCH (RBC) [Entitic mass] 29.3 pg Normal 26.7-34.0 [facility] Comment on above: Performed By: #### C BC #### [facility] [address] [place] [address] Dr. Lucero Higuera MCHC (RBC) [Mass/Vol] 30.2 g/dL Normal 29.9-35.2 [facility] Comment on above: Performed By: #### C BC #### [facility] [address] [address] [address] Lucero Higuera MCV (RBC) [Entitic vol] 97.3 fL Normal 81.0-99.0 [facility] Comment on above: Performed By: #### C BC #### [facility] [address] [address] [address] Lucero Higuera MONO # 0.7 103/ul Normal 0.3-0.8 [facility] Comment on above: Performed By: #### C BC #### [facility] [address] [address] [address] Lucero Higuera Monocytes/100 WBC (Bld) 6.0 % Normal 1.7-12.0 [facility] Comment on above: Performed By: #### C BC #### [facility] [address] [place] [address] Dr. Lucero Higuera NEUT # 6.1 103/ul Normal 1.4-6.5 [facility] Comment on above: Performed By: #### C BC #### [facility] [address] [place] [address] Dr. Lucero Higuera Neutrophils/100 WBC (Bld) 53.1 % Normal 43.0-75.0 [facility] Comment on above: Performed By: #### C BC #### [facility] [address] [address] [address] Lucero Higuera Platelet mean volume (Bld) [Entitic vol] 9.3 fL Critically low 9.5-13.5 [facility] Comment on above: Performed By: #### C BC #### [facility] [address] [address] [address] Lucero Higuera PLT 369 103/ul Normal 150-450 [facility] Comment on above: Performed By: #### C BC #### [facility] [address] [address] [address] Lucero Higuera RBC 4.43 106/ul Normal 4.20-5.40 [facility] Comment on above: Performed By: #### C BC #### [facility] [address] [address] [address] Lucero Higuera WBC 11.4 103/ul Critically high 4.0-11.0 [facility] Comment on above: Performed By: #### C BC #### [facility] [address] [address] [address] Lucero Higuera CREATININEon 05-28-2022 Creatinine [Mass/Vol] 0.76 mg/dL Normal 0.55-1.02 [facility] Comment on above: Performed By: #### B UN, CREA #### [facility] [address] [place] [address] Dr. Lucero Higuera EGFR-AF TURKMEN >60 Normal >=60 [facility] Comment on above: Performed By: #### B UN, CREA #### [facility] [address] [place] [address] Dr. Lucero Higuera EGFR-NON AF TURKMEN >60 Normal >=60 [facility] Comment on above: Performed By: #### B UN, CREA #### [facility] [address] [place] [address] Dr. Lucero Higuera [facility]03 SARS-CoV-2 (COVID-19) RNA GISELL+probe Ql (Unsp spec) Not detected Normal NOT DETECTED [facility] Comment on above: Result Comment: This test is not yet approved or cleared by the [place] FDA. When there are no FDA-approved or cleared tests available, and other criteria are met, FDA can make tests available under an emergency access mechanism called an Emergency Use Authorization (EUA). The EUA for this test is supported by the Tow[employer] Cabinet Repairer of Health and Human Service's (HHS's) declaration [...] SARS-CoV-2. Performed By: #### C VDTBH #### [facility] [address] [place] [address] Dr. Lucero Higuera PREG QUANT HCGon 05-26-2022 HCG QUANT <1 Normal [facility] Comment on above: Performed By: #### P REGQNT #### [facility] [address] [place] [address] Dr. Lucero Higuera HCG RANGE SEE BELOW Normal [facility] Comment on above: Result Comment: 5-50 0.2-1 WEEK 50-500 1-2 WEEKS 100-5,000 2-3 WEEKS 500-10,000 3-4 WEEKS 1,000-50,000 4-5 WEEKS 10,000-100,000 5-6 WEEKS 15,000-200,000 6-8 WEEKS 10,000-100,000 2-3 MONTHS Performed By: #### P REGQNT #### [facility] [address] [place] [address] Dr. Lucero Higuera TYPE AND SCREENon 05-26-2022 TYPE AND SCREEN Negative Normal [facility] Comment on above: Performed By: #### T NS #### [facility] [address] [place] [address] Dr. Lucero Higuera US PELVIS AND TRANSVAGon [...] by: DEZ RUANO Date: 2022-01-23 19:25 Normal [facility] Cult, Urineon 04-06-2019 Bacteria identified Cx Nom (U) PATIENT: SANTOS HOWE LOCATION: [facility] – [place], [place] BILL#: [id number] : 81 AGE: SEX: F ORDERED BY: PATRIZIA CHU: URINE COLLECTED: 04/06/19 19:49ANTIBIOTICS AT MEGHAN.: RECEIVED : 04/07/19 00:18SITE: Clean Catch/Voided R E S U L T S URINE CULTURE,BACTERIAL FINAL 04/09/19 09:12 ISOLATE1 : Escherichia coli >100,000 CFU/ML __Organism E coli Antibiotic BP INTRP __Ampicillin S Cefazolin S Ciprofloxacin S Nitrofurantoin S Gentamicin S Levofloxacin S Piperc/Tazobact S Trimeth/Sulfa S Tetracycline S S=SUSC EPTIBLE I=INTERMEDIATE R=RESISTANT SDD=SUSCEPTIBLE DOSE DEPENDENT NS=NONSUSCEPTIBLEX=RE PORTED IN ERROR Abnormal [facility] Work Phone: Bacteria identified Cx Nom (U) PATIENT: SANTOS HOWE Sascha LOCATION: [facility] [place], [place] BILL#: [id number] : 81 AGE: SEX: F ORDERED BY: PATRIZIA CHU: URINE COLLECTED: 04/06/19 19:49ANTIBIOTICS AT MEGHAN.: RECEIVED : 04/07/19 00:18SITE: Clean Catch/Voided R E S U L T S URINE CULTURE,BACTERIAL PRELIM 04/08/19 09:01 ISOLATE1 : Enteric bacilli >100,000 CFU/ML IDENTIFICATION AND/OR ANTIBIOTIC SUSCEPTIBILITY IN PROGRESS. Abnormal [facility] Work Phone: IO UA (automated w/o microsc opy)on 04-06-2019 Protein (U) [Mass/Vol] Negative Negative [facility] Work Phone: IO UA (automated w/o microscopy) Negative Negative [facility] Work Phone: IO UA (automated w/o microscopy) 1.010 1.000-1.030 [facility] Work Phone: IO UA (automated w/o microscopy) Yellow Colorless-[place] ow [facility] Work Phone: IO UA (automated w/o microscopy) 6.0 5.0-8.0 [facility] Work Phone: IO UA (automated w/o microscopy) Trace Negative [facility] Work Phone: IO UA (automated w/o microscopy) Normal (0.2-1.0 mg/dl) Normal [facility] Work Phone: IO UA (automated w/o microscopy) Positive Negative [facility] Work Phone: IO UA (automated w/o microscopy) (+)small - 15 Negative [facility] Work Phone: IO UA (automated w/o microscopy) Cloudy Clear [facility] Work Phone: URINE CULTURE,BACTERIALon URINE CULTURE,BACTERIAL PATIENT: SANTOS HOWE LOCATION: [id number] BILL#: [id number] : 81 AGE: SEX: F ORDERED BY: ADILENE CHU SOURCE: URINE COLLECTED: 04/06/19 19:49 ANTIBIOTICS AT MEGHAN.: RECEIVED : 04/07/19 00:18 SITE: Clean Catch/Voided R E S U L T S URINE CULTURE,BACTERIAL FINAL 04/09/19 09:12 ISOLATE1 : Escherichia coli >100,000 CFU/ML __ Organism E coli Antibiotic BP INTRP __ Ampicillin S Cefazolin S Ciprofloxacin S Nitrofurantoin S Gentamicin S Levofloxacin S Piperc/Tazobact S Trimeth/Sulfa S Tetracycline S S=SUSCEPTIBLE I=INTERMEDIATE R=RESISTANT SDD=SUSCEPTIBLE DOSE DEPENDENT NS=NONSUSCEPTIBLE X=REPORTED IN ERROR Normal [facility] Comment on above: Performed By: #### U RINC #### [facility] [address] [place] [address] Vital Signs Date Time Vital Sign Value Performing Clinician Facility 07-23-2024 15:04-0400 Body mass index (BMI) [Ratio] 31.7 kg/m2 Young Suha DO Work Phone: [facility] 07-23-2024 15:04-0400 Body weight 89.09 kg Young Suha DO Work Phone: [facility] 07-23-2024 15:04-0400 Diastolic blood pressure 70 mm[Hg] Young Suha DO Work Phone: [facility] 07-23-2024 15:04-0400 Systolic blood pressure 104 mm[Hg] Young Suha DO Work Phone: [facility] 06-03-2023 14:00-0500 Body height 165.1 cm Rachele Ram Other [facility] Other 06-03-2023 14:00-0500 Body mass index (BMI) [Ratio] 28.72 kg/m2 Rachele Ram Other [facility] Other 06-03-2023 14:00-0500 Body temperature 98 [degF] Rachele Ram Other [facility] Other 06-03-2023 14:00-0500 Body weight 78.29 kg Rachele Gibbsler Other [facility] Other 06-03-2023 14:00-0500 Respiratory rate 18 /min Rachele Ram Other [facility] Other 06-03-2023 14:00-0500 SaO2% (BldA) [Mass fraction] 96 % Rachele Ram Other [facility] Other 05-12-2023 17:40-0500 Body height 165.1 cm Rachele Ram Other [facility] Other 05-12-2023 17:40-0500 Body mass index (BMI) [Ratio] 28.29 kg/m2 Rachele Ram Other [facility] Other 05-12-2023 17:40-0500 Body temperature 98 [degF] Rachele Ram Other [facility] Other 05-12-2023 17:40-0500 Body weight 77.11 kg Rachele Ram Other [facility] Other 05-12-2023 17:40-0500 Respiratory rate 18 /min Rachele Ram Other [facility] Other 05-12-2023 17:40-0500 SaO2% (BldA) [Mass fraction] 97 % Rachele Ram Other [facility] Other 04-06-2019 20:42-0500 BMI (Body Mass Index) 28.06 kg/m2 Adilene Chu [facility] Work Phone: 04-06-2019 20:42-0500 Body Temperature 98.3 [degF] Adilene Chu [facility] Work Phone: 04-06-2019 20:42-0500 Body weight 76.48 kg Adilene Chu [facility] Work Phone: 04-06-2019 20:42-0500 BP Diastolic 64 mm[Hg] Adilene Chu [facility] Work Phone: 04-06-2019 20:42-0500 BP Systolic 110 mm[Hg] Adilene Chu [facility] Work Phone: 04-06-2019 20:42-0500 BSA (Body Surface Area) 1.84 m2 Adilene Chu [facility] Work Phone: 04-06-2019 20:42-0500 Height 165.1 cm Adilene Chu [facility] Work Phone: 04-06-2019 20:42-0500 Pulse (Heart Rate) 73 /min Adilene Chu [facility] Work Phone: 04-06-2019 20:42-0500 Pulse Oximetry 97 % Adilene Chu [facility] Work Phone: 04-06-2019 20:42-0500 4 1 Adilene Chu [facility] Work Phone: Comment on above: Pain Scale Encounters Encounter Date Encounter Type Care Provider Facility Start: 07-26-2024 End: 07-26-2024 Clinisync Result Encounter Young Suha DO Work Phone: [facility] Unsolicited Start: 07-26-2024 End: 07-26-2024 Clinisync Result Encounter Young Suha DO Work Phone: [facility] Unsolicited Start: 07-23-2024 End: 07-23-2024 Patient encounter procedure Young Suha DO Work Phone: [facility] Start: 07-23-2024 End: 07-23-2024 Periodic preventive [...] Phone: [facility] Start: 07-23-2024 End: 07-26-2024 Bamboo flowsheet Young Suha DO Work Phone: [facility] Start: 07-23-2024 End: 07-26-2024 Clinisync Result Encounter Young Suha DO Work Phone: [facility] Unsolicited Start: 07-19-2024 End: 07-19-2024 ambulatory [facility] Start: 07-13-2024 End: 07-13-2024 ambulatory [facility] Start: 10-17-2023 End: 06-25-2024 ambulatory [place] Start: 06-13-2023 Chart abstracting Young Borden DO Work Phone: [facility] Start: 06-03-2023 End: 06-03-2023 ambulatory Rachele L Ram Facility:[facility] Start: 06-03-2023 End: 06-03-2023 Patient encounter procedure [facility] Work Phone: Start: 06-03-2023 End: 06-03-2023 ambulatory NON STAFF [facility] Work Phone: Start: 06-03-2023 Office outpatient vi sit 15 minutes Rachele Ram [facility] Start: 05-12-2023 End: 05-12-2023 ambulatory Rachele Ram Other [facility] Other Start: 05-12-2023 Office outpatient ne w 30 minutes Rachele Ram [facility] Start: 05-12-2023 End: 05-12-2023 Patient encounter procedure [facility] Work Phone: Start: 05-28-2022 Encounter for preprocedural laboratory examination DR YOUNG BORDEN [facility] Start: 05-28-2022 End: 05-28-2022 ambulatory [facility] Facility:H1 Start: 05-26-2022 End: 05-27-2022 ambulatory [facility] Facility:H1 Start: 05-26-2022 End: 05-27-2022 Encounter for preprocedural laboratory examination [facility] Facility:H1 Start: 05-24-2022 Encounter for other preprocedural examination DR YOUNG BORDEN [facility] Start: 05-18-2022 End: 05-19-2022 ambulatory [facility] Facility:H1 Start: 05-18-2022 End: 05-19-2022 Encounter for other preprocedural examination [facility] Facility:H1 Start: 01-23-2022 End: 01-23-2022 [facility] Facility:H1 Start: 01-17-2022 End: 01-17-2022 [facility] Facility: Procedures Date Procedure Procedure Detail Performing Clinician Start: 07-26-2024 MM TOMOSYNTHESIS SCR EENING BI Young Suha DO Work Phone: Start: 07-26-2024 Mammography Young Fazi o DO Work Phone: Start: 07-23-2024 IGP,APTIMA HPV,AGE GDLN Young Suha DO Work Phone: Start: 07-11-2023 Mammography Young Fazi o DO [...] malignant neoplasm of cervix Pap Smear [facility] Start: 07-30-2025 End: 07-30-2025 Patient encounter procedure 07/30/2025 10:00 AM EDT Office Visit [facility] [address] [place] [id number] Young Borden, DO [address] [place] [address] [facility] Start: 07-23-2024 End: 07-23-2024 Patient encounter procedure 07/23/2024 2:40 PM EDT Office Visit [facility] [address] [place] [id number] Young Borden, DO [address] [place] [address] Arrived [facility] Comment on above: Arrived Start: 07-23-2024 End: 09-22-2025 MG Breast - bilateral Screening Bilateral screening mammogram Imaging Routine Encounter for screening mammogram for malignant neoplasm of breast Expected: 07/23/2024 (Approximate), Expires: 09/22/2025 [facility] Work Phone: Comment on above: Expected: 07/23/2024 (Approximate), Expires: 09/22/2025 Start: 07-10-2024 Screening for malignant neoplasm of breast Mammogram [facility] Start: 06-25-2024 Screening for malignant neoplasm of cervix [facility] Start: 01-01-2024 Influenza vaccination Influenza Vacc ine (#1) [facility] Start: 07-07-2023 End: 07-07-2023 Patient encounter procedure 07/07/2023 10:00 AM EST Office Visit [facility] [address] [place] [id number] Young Borden, DO [address] [place] [address] [facility] Start: 2023 Screening for malignant neoplasm of breast Mammogram [facility] Start: 12-31-2022 Influenza vaccination Influenza Vacc ine (#1) [facility] THIN PREP TIS PAP AN D HR HPV DNA THIN PREP TIS PAP AND HR HPV DNA Pathology and Cytology Routine Well woman exam with routine gynecological exam Ordered: 07/23/2024 [facility] Comment on above: Ordered: 07/23/2024 Payers Date Payer Category Payer Self-pay [id number] 2022 Private Health Insurance [employer] [id number] 2022 Unknown [employer] [id number] 2022-Present [phone] [address] [facility] [place] [address] [id number] 2022 Unknown [id number] 1985 Unknown [id number] [id number] 1983 Unknown [id number]. 2.593 1983 Unknown [id number] [id number]. 2.593 1983 Unknown [id number]. [id number] 1983 Unknown [id number] [id number]. 2.593 1983 Unknown [id number] [id number]. 2.1286 1983 Unknown [id number] [id number]. 2.1286 1983 Unknown [id number]. 2.1259 1959 Self-pay [id number] Unknown [place] BC/BS [id number] Unknown [id number] Social History Date Type Detail Facility Start: 06-13-2023 Sex Assigned At [facility] Other Start: 09-05-2019 Tobacco smoking status INIS Current some day smoker [facility] Start: 1985 Sex Assigned At Female [facility] Start: 06-13-2023 Tobacco smoking status INIS Never smoked tobacco [facility] Start: 06-13-2023 End: 07-07-2023 Alcohol intake Current drinker of alcohol (finding) [facility] Start: 06-13-2023 Alcohol Comment caffeine: 1-2 cups per day [facility] Start: 1985 Sex Assigned At Not on file [facility] Start: 06-13-2023 History of Social function [facility] NEGATED: Highlighted row - - [facility] Work Phone: Functional Status Date Assessment Result Facility NEGATED: Highlighted row Functional performance Functional status health issues are not documented Disease [facility] Work Phone: Mental Status Date Assessment Result Facility NEGATED: Highlighted row Cognitive function [Interpretation] Cognitive status health issues are not documented Disease [facility] Work Phone: History of Present illness Narrative [...] nursing note reviewed. Exam conducted with a insurance coordinator present. Vitals: Estimated body mass index is [...] Borden DO documented in this encounter [facility] Evaluation note 06-03-2023 Note Date & [...] Hand fracture home care material was printed [facility] Other Evaluation note 05-12-2023 Note Date & [...] understanding and is agreeable to treatment plan [facility] Other History general Narrative - Reported 2023 Note Date & Type Note Facility 2023 History general N arrative - Reported Type Medical History chronic depression Surgical History nasal reconstruction Surgical History cholecystectomy 04/2023 Surgical History hysterectomy 05/2022 Hospitalization History See Above [facility] Other History general Narrative - Reported 2023 Note Date & Type Note Facility 2023 History general N arrative - Reported Type Medical History chronic depression Surgical History nasal reconstruction Surgical History cholecystectomy 04/2023 Surgical History hysterectomy 05/2022 Hospitalization History 3 child births [facility] Other Clinical Note 05-28-2022 Note Date & Type Note Facility 05-28-2022 Note OPERATIVE NOTE OPERATION DATE: 05/28/2022 PROCEDURE: vNOTES assisted laparoscopic hysterectomy with bilateral salpingectomy with cystoscopy. PREOPERATIVE DIAGNOSIS: Menorrhagia, dysmenorrhea. POSTOPERATIVE DIAGNOSIS: Menorrhagia, dysmenorrhea. ANESTHESIA: General. SURGEON: Young Borden D.O. FUSE COILER: PATO Astorga URINE OUTPUT: Yellow and clear. [...] Sponge, lap, needle counts correct x2. [facility] Evaluation note Note Date & Type Note Facility Evaluation note No assessment information [facility] Work Phone: Evaluation note Note Date [...] DATE CREATED AUTHOR AUTHOR'S ORGANIZ ATION 04/09/2019 [facility] DATE CREATED AUTHOR AUTHOR'S ORGANIZ ATION 06/01/2022 [facility] DATE CREATED AUTHOR AUTHOR'S ORGANIZ ATION 06/10/2023 [facility] DATE CREATED AUTHOR AUTHOR'S ORGANIZ ATION 06/26/2024 [place] DATE CREATED AUTHOR AUTHOR'S ORGANIZ ATION 07/21/2024 [facility] DATE CREATED AUTHOR AUTHOR'S ORGANIZ ATION 07/24/2024 [facility] EPIC REASON FOR VISIT (unrecogniz [...] June 03, 2023 End: June 03, 2023 [facility] Hand Relationship Specialty Start Date End Date Carli Abbasi MD [address] [place], [place] [id number] PCP - General Pediatrics 07/23/24 [facility]erol[facility] Hand Relationship Specialty Start Date End Date Carli Abbasi MD [address] [address] PCP - General Pediatrics 07/23/24 Reroller Hand Relationship Specialty Start Date End Date Carli Abbasi MD [address] [place], [place] [id number] PCP - General Pediatrics 07/23/24 Goals (unrecognized [...] BE BASED ON THE PRIMARY CLINICAL RECORDS. [facility] [employer] [facility]. provides no warranty or guarantee of the accuracy or completeness of information in this document.
--- NOTE | 2025-01-11 08:23 | PC.NURSE ---
Nursing Note Cardiac Stress Test Reviewed: Medication, allergies and patient history reviewed. Stress Test: [x ] Patient tolerated stress test well. [ ] Patient unable to tolerate walking on treadmill. Switched to Lexiscan stress test. [x ] No chest pain noted per patient [ ] Chest pain that resolved prior to leaving stress lab. [x ] No dyspnea noted. [ ] Dyspnea that resolved prior to leaving stress lab. [ x] Patient left stress lab asymptomatic and hemodynamically stable. [ ] Patient taken to the Emergency Room due to non-resolving symptoms following stress test. [x ] Patient achieved target heart rate. [ ] Patient unable to achieve target heart rate. [ ] Aminophylline administered as reversal agent to Lexiscan (Regadenoson). [ ] Nitro administered. Nursing Comments:
--- NOTE | 2025-01-11 19:50 | P.STRESS_ITS ---
Stress Test Stress Test Requesting physician: RAYA ZAPATA Procedure: Treadmill EKG stress test General Information: Reason for Stress Test: [Syncope and chest pain] Cardiac History and Risk Factors: [Hyperlipidemia] Resting 12 - Lead Electrocardiogram: Resting twelve-lead EKG showed normal sinus rhythm, heart rate 78 bpm, no significant T or ST changes. Resting blood pressure 128/86. Patient was exercised according to standard Edep protocol and she was able to finish 6 minutes and 26 seconds consistent with stage III and VIII 0.3 minutes. Peak heart rate 155 bpm which represents 86% of age-predicted maximum heart rate and peak blood pressure 168/92 mmHg. This test was terminated secondary to achievement of target heart rate. The patient did not experience any chest, neck, jaw, or arm discomfort throughout the test. The patient was monitored for 6 minutes into recovery phase with heart rate back to 96 bpm and blood pressure to 128/86 mmHg EKG during exercise, at peak exercise, and during recovery phase did not show any significant T or ST changes or any arrhythmias Stress Test: Protocol: [Deep] Exercise Capacity: [Good] Blood Pressure Response: [Normal] Rhythm: [No arrhythmia] ST - Response: [No ST changes] Patient Response: [No symptoms] Interpretation: Maximal stress test Good exercise tolerance Appropriate heart rate and blood pressure response to exercise The stress test is negative for exercise-induced ischemic symptoms, EKG changes, or arrhythmias Martin score 6 consistent with low cardiac risk Elke Wood MD, [facility]
== END 2025-01-11 08:02 | disposition home or self-care (01) ==
LOC: CARD 08:01
DX: R55 Syncope and collapse (principal); R07.9 Chest pain, unspecified
CPT/HCPCS: 93017